=== PATIENT | male | born 1930 | race Caucasian/White ===

== ENCOUNTER 2017-02-11 10:08 | Day surgery (SDC) | payer MEDICARE, OTHER ==
[~2017-02-11 10:08] MED LIST: CHONDR SU A NA/HYALUR INTRAOC KIT (SURGICARE) ONE; EPINEPHRINE INJ/PF 1 MG/1 ML AMPULE ONE; KETOROLAC TROMETHAMINE 0.45% 4 DROP/0.4 ML DROPERETTE OS PRN; LIDOCAINE 1% INJ-PF (10 MG/ML) 30 ML SDV ONE; TOBRAMYCIN SULFATE/DEXAMETH OPH OINTMENT 3.5 GM ONE
[2017-02-11] MEDS: BESIFLOXACIN HCL 0.6% OPH SUSP 5 ML BOTTLE OS PRN ×3 (10:41→11:36)
[2017-02-11] MEDS: TROPICAMIDE 1% OPH SOLN 3 ML OS PRN ×3 (10:41→11:01)
[2017-02-11] MEDS: CYCLOPENTOLATE 0.2%/PHENYLEPHRINE 1% OPH SOLN 2 ML OS PRN ×3 (10:41→11:01)
[2017-02-11] MEDS: TETRACAINE HCL 0.5% OPH SOLN 0.6 ML DROPERETTE OS PRN ×3 (10:42→11:17)
[2017-02-11] MEDS ORDERED: MIDAZOLAM 2 MG/2 ML INJ ONE (10:58)
== END 2017-02-11 12:20 | disposition home or self-care (01) ==
LOC: SC 10:08
PROVIDERS: ATTEND Ophthalmology
PROC: 08RK3JZ Replacement of Left Lens with Synthetic Substitute, Percutaneous Approach (ICD-10-PCS; principal; 2017-02-11 11:15)
DX: H25.12 Age-related nuclear cataract, left eye (principal); D64.9 Anemia, unspecified; I10 Essential (primary) hypertension; E78.00 Pure hypercholesterolemia, unspecified; K21.9 Gastro-esophageal reflux disease without esophagitis; E89.0 Postprocedural hypothyroidism; Z79.51 Long term (current) use of inhaled steroids; Z79.899 Other long term (current) drug therapy; Z87.891 Personal history of nicotine dependence; Z86.73 Personal history of transient ischemic attack (TIA), and cerebral infarction without residual deficits; Z79.82 Long term (current) use of aspirin
CPT/HCPCS: 66984; V2630; J2250; J3490 ×3; A9270; J0171; 142

== ENCOUNTER 2017-02-25 06:35 | Day surgery (SDC) | payer MEDICARE, OTHER ==
[~2017-02-25 06:35] MED LIST changes: -CHONDR SU A NA/HYALUR INTRAOC KIT (SURGICARE) ONE; -EPINEPHRINE INJ/PF 1 MG/1 ML AMPULE ONE; +KETOROLAC TROMETHAMINE 0.45% 4 DROP/0.4 ML DROPERETTE OD PRN; -KETOROLAC TROMETHAMINE 0.45% 4 DROP/0.4 ML DROPERETTE OS PRN; -LIDOCAINE 1% INJ-PF (10 MG/ML) 30 ML SDV ONE; -TOBRAMYCIN SULFATE/DEXAMETH OPH OINTMENT 3.5 GM ONE
[2017-02-25] MEDS: TETRACAINE HCL 0.5% OPH SOLN 0.6 ML DROPERETTE OD PRN ×3 (06:58→07:49)
[2017-02-25] MEDS: BESIFLOXACIN HCL 0.6% OPH SUSP 5 ML BOTTLE OD PRN ×3 (06:59→08:09)
[2017-02-25] MEDS: CYCLOPENTOLATE 0.2%/PHENYLEPHRINE 1% OPH SOLN 2 ML OD PRN ×3 (06:59→07:25)
[2017-02-25] MEDS: TROPICAMIDE 1% OPH SOLN 3 ML OD PRN ×3 (06:59→07:25)
[2017-02-25] MEDS ORDERED: CHONDR SU A NA/HYALUR INTRAOC KIT (SURGICARE) ONE (07:12)
[2017-02-25] MEDS ORDERED: TOBRAMYCIN SULFATE/DEXAMETH OPH OINTMENT 3.5 GM ONE (07:12)
[2017-02-25] MEDS ORDERED: EPINEPHRINE INJ/PF 1 MG/1 ML AMPULE ONE (07:12)
[2017-02-25] MEDS ORDERED: LIDOCAINE 1% INJ-PF (10 MG/ML) 30 ML SDV ONE (07:12)
[2017-02-25] MEDS ORDERED: MIDAZOLAM 2 MG/2 ML INJ ONE (07:30)
== END 2017-02-25 09:03 | disposition home or self-care (01) ==
LOC: SC 06:35
PROVIDERS: ATTEND Ophthalmology
PROC: 08RJ3JZ Replacement of Right Lens with Synthetic Substitute, Percutaneous Approach (ICD-10-PCS; principal; 2017-02-25 07:45)
DX: H25.11 Age-related nuclear cataract, right eye (principal); K21.9 Gastro-esophageal reflux disease without esophagitis; I10 Essential (primary) hypertension; E78.00 Pure hypercholesterolemia, unspecified; E03.9 Hypothyroidism, unspecified; Z79.82 Long term (current) use of aspirin; Z79.899 Other long term (current) drug therapy; Z87.891 Personal history of nicotine dependence
CPT/HCPCS: 66984; V2630; J2250; J3490 ×3; A9270; J0171; 142

== ENCOUNTER 2017-10-09 12:07 | Inpatient (IN) | payer MEDICARE, OTHER ==
--- NOTE | 2017-10-09 12:14 | ER Document Report ---
ED Cardiac - General Stated Complaint: CHEST PAIN Time Seen by Provider: 10/09/17 12:13 Mode of Arrival: Medic Information source: Patient, Relative, Emergency Med Personnel TRAVEL OUTSIDE OF THE [place] IN LAST 30 DAYS: No - HPI Patient complains to provider of: Chest pain Use of: denies: Alcohol, Amphetamines, Bath salts, Caffeine, Cocaine, Decongestants Was the onset of pain: Sudden When did pain begin: 1000 HRS TODAY Is the pain a: New problem Chest pain location: Substernal Quality of pain: Pressure, Tightness Chest pain radiation location: Back Severity now: None Severity at worst: Mild Chest pain precipitating factors: At Rest Cardiac risk factors: Hypertension, Dyslipidemia. denies: Diabetes Positive cardiac history: No Associated symptoms: denies: Diaphoresis, Nausea/vomiting, Shortness of breath Exacerbated by: Denies Relieved by: NTG - PER EMS Similar symptoms previously: No Recently seen / treated by doctor: No - Related Data Allergies/Adverse Reactions: No Known Allergies Allergy (Unverified 02/04/17 12:31) Past Medical History - General Information source: Patient, Relative - Social History Smoking Status: Former Smoker Cigarette use (# per day): No Chew tobacco use (# tins/day): No Frequency of alcohol use: Occasional Drug Abuse: None Lives with: Spouse/Significant other Family History: Reviewed & Not Pertinent - Past Medical History Cardiac Medical History: Reports: Hx Hypercholesterolemia, Hx Hypertension Denies: Hx Heart Attack Pulmonary Medical History: Denies: Hx Asthma Neurological Medical History: Denies: Hx Cerebrovascular Accident, Hx Seizures Endocrine Medical History: Reports: None Renal/ Medical History: Reports: None Malignancy Medical History: Reports None GI Medical History: Reports: None. Denies: Hx Hepatitis, Hx Hiatal Hernia, Hx Ulcer Musculoskeletal Medical History: Reports None Psychiatric Medical History: Reports: None Infectious Medical History: Denies: Hx Hepatitis Surgical Hx: Negative Past Surgical History: Denies: Hx Open Heart Surgery, Hx Pacemaker Review of Systems - Review of Systems Constitutional: No symptoms reported EENT: No symptoms reported Cardiovascular: See HPI Respiratory: No symptoms reported Gastrointestinal: No symptoms reported Musculoskeletal: No symptoms reported Skin: No symptoms reported Neurological/Psychological: No symptoms reported Physical Exam - Vital signs Vitals: Pulse Ox 94 10/09/17 12:25 Interpretation: Normal. No: Hypotensive, Tachycardic, Tachypneic - General General appearance: Appears well, Alert In distress: None - HEENT Head: Normocephalic Eyes: Normal Conjunctiva: Normal Ears: Normal Nasal: Normal Mouth/Lips: Normal Mucous membranes: Normal - Respiratory Respiratory status: No respiratory distress Breath sounds: Normal - Cardiovascular Rhythm: Regular Heart sounds: Normal auscultation Murmur: No - Abdominal Inspection: Normal Distension: No distension Tenderness: Nontender Organomegaly: No: Mass - Back Back: Normal - Extremities General upper extremity: Normal inspection General lower extremity: Normal inspection - Neurological Neuro grossly intact: Yes Cognition: Normal Orientation: AAOx4 - Psychological Associated symptoms: Normal affect, Normal mood - Skin Skin Temperature: Warm Skin Moisture: Dry Skin Color: Normal Skin Turgor: Elastic Course - Vital Signs Vital signs: Temp Pulse Resp BP Pulse Ox 97.7 F 94 10/09/17 12:45 10/09/17 12:25 - Laboratory Result Diagrams: 10/09/17 12:23 10/09/17 12:23 Laboratory results interpreted by me: 10/09/17 10/09/17 12:23 12:23 RBC 3.81 L Hgb 12.1 L Hct 35.1 L Chloride 112 H Carbon Dioxide 21 L BUN 33 H Creatinine 1.51 H Est GFR ( Amer) 53 L Est GFR (Non-Af Amer) 44 L Total Protein 6.1 L - Diagnostic Test Radiology reviewed: Image reviewed, Reports reviewed - EKG Interpretation by Me EKG shows normal: Sinus rhythm, Jacob, Intervals, ST-T Waves. abnormal: QRS Complexes Rate: Normal Rhythm: NSR Jacob/QRS: RBBB, LAHB/LAFB - Consults DR. CONTRERAS Time consulted: 14:48 Consulted provider: will come to ER Discharge - Discharge Clinical Impression: Chest pain Qualifiers: Chest pain type: unspecified Qualified Code(s): R07.9 - Chest pain, unspecified Condition: Good Disposition: ADMITTED OBSERVATION Admitting Provider: Hospitalist Unit Admitted: Telemetry Referrals: TRENT FLORENTINO PA-C [Primary Care Provider] - Follow up as needed
[2017-10-09] MEDS ORDERED: ASPIRIN 81 MG TABLET, CHEWABLE PO ONE (12:22)
[2017-10-09 12:44] LABS: ABSOLUTE BASOPHILS # (AUTO) 0.1 10^3/uL (0.0-0.2); ABSOLUTE EOSINOPHILS # (AUTO) 0.2 10^3/uL (0.0-0.6); ABSOLUTE LYMPHOCYTES (AUTO) 1.5 10^3/uL (0.5-4.7); ABSOLUTE MONOCYTES (AUTO) 0.6 10^3/uL (0.1-1.4); ABSOLUTE NEUT (AUTO) 6.3 10^3/uL (1.7-8.2); BASOPHILS % (AUTO) 0.8 % (0-2); EOSINOPHILS % (AUTO) 2.3 % (0-6); HEMATOCRIT 35.1 % (37.9-51.0); HEMOGLOBIN 12.1 g/dL (13.5-17.0); LYMPHOCYTES % (AUTO) 16.9 % (13-45); MEAN CORPUSCULAR HEMOGLOBIN 31.9 pg (27.0-33.4); MEAN CORPUSCULAR HGB CONC 34.6 g/dL (32.0-36.0); MEAN CORPUSCULAR VOLUME 92 fl (80-97); MONOCYTES % (AUTO) 6.6 % (3-13); PLATELET COUNT 192 10^3/uL (150-450); RED BLOOD COUNT 3.81 10^6/uL (4.35-5.55); RED CELL DISTRIBUTION WIDTH 13.5 % (11.5-14.0); SEGMENTED NEUTROPHILS % (AUTO) 73.4 % (42-78); TOTAL CELLS COUNTED % (AUTO) 100 %; WHITE BLOOD COUNT 8.6 10^3/uL (4.0-10.5)
[2017-10-09 13:20] LABS: ALANINE AMINOTRANSFERASE 25 U/L (21-72); ALBUMIN 3.6 g/dL (3.5-5.0); ALKALINE PHOSPHATASE 50 U/L (38-126); ANION GAP 12 (5-19); ASPARTATE AMINO TRANSFERASE 22 U/L (17-59); BILIRUBIN,DIRECT 0.3 mg/dL (0.0-0.4); BILIRUBIN,TOTAL 0.5 mg/dL (0.2-1.3); BLOOD UREA NITROGEN 33 mg/dL (7-20); CALCIUM 8.9 mg/dL (8.4-10.2); CARBON DIOXIDE 21 mmol/L (22-30); CHLORIDE 112 mmol/L (98-107); CREATINE KINASE 57 U/L (55-170); GLUCOSE 110 mg/dL (75-110); POTASSIUM 4.7 mmol/L (3.6-5.0); SODIUM 144.5 mmol/L (137-145); TOTAL PROTEIN 6.1 g/dL (6.3-8.2)
[2017-10-09 13:28] LABS: CREATINE KINASE MB 1.15 ng/mL (<4.55)
[2017-10-09 13:29] LABS: TROPONIN I 0.047 ng/mL
--- NOTE | 2017-10-09 13:40 | RADIOLOGY REPORT (SQ) ---
EXAM DESCRIPTION: CHEST SINGLE VIEW COMPLETED DATE/TIME: 10/09/2017 1:13 pm REASON FOR STUDY: CHEST PAIN COMPARISON: None. EXAM PARAMETERS: NUMBER OF VIEWS: One view. TECHNIQUE: Single frontal radiographic view of the chest acquired. RADIATION DOSE: NA LIMITATIONS: None. FINDINGS: LUNGS AND PLEURA: Basilar atelectasis left greater than right. No acute opacities. MEDIASTINUM AND HILAR STRUCTURES: No masses. Contour normal. HEART AND VASCULAR STRUCTURES: Heart normal in size. Normal vasculature. BONES: No acute findings. HARDWARE: None in the chest. OTHER: No other significant finding. IMPRESSION: NO ACUTE RADIOGRAPHIC FINDING IN THE CHEST. TECHNICAL DOCUMENTATION: JOB ID: [id number] [employer]- All Rights Reserved Reading location - IP/workstation name: [email or web address]
--- NOTE | 2017-10-09 16:00 | PDOC H&P ---
History of Present Illness Admission Date/PCP: TRENT FLORENTINO PA-C History of Present Illness: LEANNE FAROOQ is a 87 year old male with no prior cardiac history who had abrupt onset of lower chest/upper abdominal pain along with pain that went through to the middle part of his back at about 930 this morning. He said it lasted for about an hour and then it stopped. He never had anything like that before. He has no prior significant cardiac history. He said he had to have a stress test a couple years ago prior to a surgery but the stress test was normal. He is not a smoker. He is not diabetic. He does take medication for blood pressure control. 1 of his children had an CA in his mid 50s. He said nothing really makes it better or worse. He said he is pain-free at this time. 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 He said he had no knowledge of any prior cardiac ischemia. Past Medical History Cardiac Medical History: Reports: Hyperlipidema, Hypertension Denies: Myocardial Infarction Pulmonary Medical History: Denies: Asthma Neurological Medical History: Denies: Seizures Endocrine Medical History: Reports: None Renal/ Medical History: Reports: None Malignancy Medical History: Reports: None GI Medical History: Reports: None Denies: Hepatitis, Hiatal Hernia Musculoskeltal Medical History: Reports: None Psychiatric Medical History: Reports: None Hematology: Reports: Anemia Denies: Sickle Cell Disease Past Surgical History Past Surgical History: Reports: Tonsillectomy Denies: Pacemaker Social History Information Source: Patient Lives with: Spouse/Significant other Smoking Status: Former Smoker Frequency of Alcohol Use: Rare Hx Recreational Drug Use: No Family History Family History: Reviewed & Not Pertinent Parental Family History Reviewed: Yes - Noncontributory Children Family History Reviewed: No - 1 of his sons had an CA in his 50s Sibling(s) Family History Reviewed.: No - Noncontributory Medication/Allergy Home Medications: Amlodipine Besylate 5 mg PO DAILY 02/04/17 Aspirin [Aspirin 81 mg Chewable Tablet] 81 mg PO DAILY 02/04/17 Atorvastatin Calcium [Lipitor 20 mg Tablet] 1 tab PO DAILY 02/04/17 B12/FA/D3/Calc Cit/Zn Aa Chelt [Rx Balance Int Capsule] 1 cap PO .WEEKLY PRN Ferrous Sulfate 325 mg PO DAILY 02/04/17 Levothyroxine Sodium [Synthroid 0.112 mg Tablet] 0.112 mg PO DAILY 02/04/17 Omeprazole 10 mg PO DAILY 02/04/17 Sodium Bicarbonate [Sodium Bicarbonate 650 mg Tablet] 1 tab PO DAILY 02/04/17 Allergies/Adverse Reactions: No Known Allergies Allergy (Unverified 02/04/17 12:31) Review of Systems All systems: reviewed and no additional remarkable complaints except as stated - 10 point review of systems was conducted with the patient was negative except as noted above Physical Exam Vital Signs: Temp Pulse Resp BP Pulse Ox 97.7 F 94 10/09/17 12:45 10/09/17 12:25 Intake & Output 10/08/17 10/09/17 10/10/17 06:59 06:59 06:59 Weight 91 kg General appearance: PRESENT: no acute distress, cooperative, well-developed Head exam: PRESENT: atraumatic, normocephalic Eye exam: PRESENT: conjunctiva pink, EOMI, PERRLA. ABSENT: scleral icterus Ear exam: PRESENT: normal external ear exam Mouth exam: PRESENT: moist, neck supple Teeth exam: PRESENT: other - Had his dentures in Throat exam: ABSENT: post pharyngeal erythema, tonsillar erythema, tonsillar exudate Neck exam: PRESENT: full ROM. ABSENT: carotid bruit, JVD, lymphadenopathy, tenderness Respiratory exam: PRESENT: clear to auscultation chace, unlabored. ABSENT: accessory muscle use, rales, rhonchi, tachypnea, wheezes Cardiovascular exam: PRESENT: RRR. ABSENT: diastolic murmur, systolic murmur Pulses: PRESENT: normal carotid pulses, normal radial pulses Vascular exam: PRESENT: normal capillary refill GI/Abdominal exam: PRESENT: normal bowel sounds, soft. ABSENT: distended, guarding, rebound, tenderness Extremities exam: ABSENT: clubbing, pedal edema Musculoskeletal exam: PRESENT: ambulatory, normal inspection. ABSENT: deformity Neurological exam: PRESENT: alert, awake, oriented to person, oriented to place , oriented to time, oriented to situation, CN II-XII grossly intact Psychiatric exam: PRESENT: appropriate affect, normal mood Skin exam: PRESENT: dry, warm Results Laboratory Results: 10/09/17 12:23 10/09/17 12:23 10/09/17 10/09/17 12:23 12:23 WBC 8.6 RBC 3.81 L Hgb 12.1 L Hct 35.1 L MCV 92 MCH 31.9 MCHC 34.6 RDW 13.5 Plt Count 192 Seg Neutrophils % 73.4 Lymphocytes % 16.9 Monocytes % 6.6 Eosinophils % 2.3 Basophils % 0.8 Absolute Neutrophils 6.3 Absolute Lymphocytes 1.5 Absolute Monocytes 0.6 Absolute Eosinophils 0.2 Absolute Basophils 0.1 Sodium 144.5 Potassium 4.7 Chloride 112 H Carbon Dioxide 21 L Anion Gap 12 BUN 33 H Creatinine 1.51 H Est GFR ( Amer) 53 L Est GFR (Non-Af Amer) 44 L Glucose 110 Calcium 8.9 Total Bilirubin 0.5 AST 22 ALT 25 Alkaline Phosphatase 50 Total Protein 6.1 L Albumin 3.6 10/09/17 10/09/17 12:23 12:23 Creatine Kinase 57 CK-MB (CK-2) 1.15 Troponin I 0.047 Impressions: Chest X-Ray 10/09/17 12:25 IMPRESSION: NO ACUTE RADIOGRAPHIC FINDING IN THE CHEST. 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 Because of the fascicular block, go ahead and schedule stress test for tomorrow. Also, he described the pain is in the upper part of his abdomen and lower chest, and that he felt that all the way through to the back. In order a CTA of the chest to try to evaluate the entire aorta. Start him on aspirin. We will continue his statin. - Time Time Spent: 50 to 70 Minutes
--- NOTE | 2017-10-09 17:37 | RADIOLOGY REPORT (SQ) ---
EXAM DESCRIPTION: CTA CHEST COMPLETED DATE/TIME: 10/09/2017 5:20 pm REASON FOR STUDY: acute lower chest/mid-back pain, COMPARISON: Chest radiograph 10/09/2017 TECHNIQUE: CT scan of the chest performed using helical scanning technique with dynamic intravenous contrast injection. Images reviewed with lung, soft tissue and bone windows. Reconstructed coronal and sagittal MPR images reviewed. Additional 3 dimensional post-processing performed to develop Maximal Intensity Projection images (AK P). All images stored on PACS. All CT scanners at this facility use dose modulation, iterative reconstruction, and/or weight based d osing when appropriate to reduce radiation dose to as low as reasonably achievable (ALARA). [facility]: Dose Right [facility]: CareDose [facility]: Dose Right [facility]: Teradose 4D [facility]: The Black Tux CONTRAST TYPE AND DOSE: contrast/concentration: Isovue 370.00 mg/ml; Total Contrast Delivered: 77.0 ml; Total Saline Delivered: 90.0 ml Contrast bolus optimized for the pulmonary arteries. Not diagnostic for the aorta. RENAL FUNCTION: BUN 33; creatinine 1.51 RADIATION DOSE: CT Rad equipment meets quality standard of care and radiation dose reduction techniq ues were employed. CTDIvol: 16.5 - 16.7 mGy. DLP: 624 mGy-cm. . LIMITATIONS: None. FINDINGS: LUNGS AND PLEURA: No masses, infiltrates, or pneumothorax. No pleural effusions or pleura l calcifications. AORTA AND GREAT VESSELS: No aneurysm. Contrast bolus not optimized for the aorta. HEART: No pericardial effusion. Moderate to marked coronary artery calcifications. PULMONARY ARTERIES: No emboli visualized in the main pulmonary arteries or the segmental branches. HILAR AND MEDIASTINAL STRUCTURES: No identified masses or abnormal nodes. Small hiatal hernia. HARDWARE: None in the chest. UPPER ABDOMEN: Limited exam. Gallstones without evidence of cholecystitis. Scattered hepatic cysts. Bilateral renal cysts. Note is made of 3 hyperdense cysts within the partially imaged right kidney ; these range in size from 1.4 cm to 1.9 cm. Ultimately, these are incompletely characterized. THYROID AND OTHER SOFT TISSUES: No masses. No adenopathy. BONES: No acute or significant finding. 3D MIPS: Confirm above findings. OTHER: No other significant finding. IMPRESSION: 1. Normal CTA of the chest. No pulmonary emboli. 2. Limited evaluation of the upper abdomen reveals 3 hyperdense cysts within the partially imaged ri ght kidney. While these likely represent Bosniak class 2 or 2F lesions, ultimately these are incompl etely characterized on this examination. Recommend further evaluation with dedicated renal CT or MRI . COMMENT: Quality ID # [id number]: Final reports with documentation of one or more dose reduction techniques (e.g., Automated exposure control, adjustment of the mA and/or kV according to patient size, use of iterative reconstruction technique) TECHNICAL DOCUMENTATION: JOB ID: [id number] [employer]- All Rights Reserved Reading location - IP/workstation name: [email or web address]
[2017-10-09] MEDS ORDERED: CLOPIDOGREL BISULFATE 300 MG TABLET PO ONE (20:00)
[2017-10-09] MEDS ORDERED: MORPHINE SULFATE 10 MG/ML INJ IV PRN (20:06)
[2017-10-09] MEDS ORDERED: NITROGLYCERIN 0.4 MG/TAB 25 TAB/BOTTLE SL PRN (20:06)
[2017-10-09] MEDS: ATORVASTATIN CALCIUM 80 MG TABLET PO SCH (22:06)
[2017-10-09] MEDS: CARVEDILOL 6.25 MG TABLET PO SCH (22:06)
[2017-10-09] MEDS: RANOLAZINE 500 MG TAB.SR.12H PO SCH (22:07)
[2017-10-09] MEDS: ENOXAPARIN SODIUM INJ 100 MG/1 ML DISP.SYRIN SUBCUT SCH (22:14)
--- NOTE | 2017-10-09 22:18 | PDOC CONSULTATION ---
Consultation Consult Date: 10/09/17 Attending physician:: GRETCHEN RICK Consult reason:: Chest pain History of Present Illness Admission Date/PCP: 10/09/17 15:44 TRENT FLORENTINO PA-C Patient complains of: Chest pain History of Present Illness: LEANNE FAROOQ is a 87 year old male with no prior cardiac history who had abrupt onset of lower chest/upper abdominal pain along with pain that went through to the middle part of his back at about 930 this morning. He said it lasted for about an hour and then it stopped. He never had anything like that before. He has no prior significant cardiac history. He said he had to have a stress test a couple years ago prior to a surgery but the stress test was normal. He is not a smoker. He is not diabetic. He does take medication for blood pressure control. 1 of his children had an NC in his mid 50s. He said nothing really makes it better or worse. He said he is pain-free at this time. 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 He said he had no knowledge of any prior cardiac ischemia. I was consulted because of troponin I in the non-STEMI range. EKG did not show any acute ST-T wave changes. Patient medical regimen reviewed and he seems to be on excellent medical regimen. At this point will order a 2D echo. Ischemia workup to be discussed after review of 2D echo. Currently patient stable without any chest pain since admission. Past Medical History Cardiac Medical History: Reports: Hyperlipidema, Hypertension Denies: Myocardial Infarction Pulmonary Medical History: Denies: Asthma Neurological Medical History: Denies: Seizures Endocrine Medical History: Reports: None Renal/ Medical History: Reports: None Malignancy Medical History: Reports: None GI Medical History: Reports: None Denies: Hepatitis, Hiatal Hernia Musculoskeltal Medical History: Reports: None, Arthritis Psychiatric Medical History: Reports: None Hematology: Reports: Anemia Denies: Sickle Cell Disease Past Surgical History Past Surgical History: Reports: Tonsillectomy Denies: Pacemaker Social History Information Source: Patient Lives with: Spouse/Significant other Smoking Status: Former Smoker Frequency of Alcohol Use: Rare Hx Recreational Drug Use: No Drugs: None - Advance Directive Resuscitation Status: Full Code Surrogate healthcare decision maker:: Magda Conway, patient's significant other Family History Family History: Hypertension Parental Family History Reviewed: Yes Children Family History Reviewed: Yes Sibling(s) Family History Reviewed.: Yes Medication/Allergy Home Medications: Amlodipine Besylate 5 mg PO DAILY 02/04/17 Aspirin [Aspirin 81 mg Chewable Tablet] 81 mg PO DAILY 02/04/17 Atorvastatin Calcium [Lipitor 20 mg Tablet] 1 tab PO DAILY 02/04/17 B12/FA/D3/Calc Cit/Zn Aa Chelt [Rx Balance Int Capsule] 1 cap PO .WEEKLY PRN Ferrous Sulfate 325 mg PO DAILY 02/04/17 Levothyroxine Sodium [Synthroid 0.112 mg Tablet] 0.112 mg PO DAILY 02/04/17 Sodium Bicarbonate [Sodium Bicarbonate 650 mg Tablet] 1 tab PO DAILY 02/04/17 Amlodipine Besylate/Valsartan [Exforge 5-160 mg Tablet] 1 tab PO DAILY 10/09/17 Diclofenac Sodium [Voltaren] 100 gm TP DAILY 10/09/17 Finasteride [Proscar 5 mg Tablet] 5 mg PO DAILY 10/09/17 Omeprazole 20 mg PO DAILY 10/09/17 Tamsulosin HCl [Flomax] 0.4 mg PO DAILY 10/09/17 Allergies/Adverse Reactions: No Known Allergies Allergy (Unverified 02/04/17 12:31) Review of Systems Review of Systems: Please see history of present illness and past medical history as wall. Constitutional: No fever or chills reported. Head : No recent chronic headaches, recent head injury. Eyes: No recent eye pain, diplopia, redness, discharge, acute visual changes. Ears: No recent chronic ear pain, acute hearing loss, ear discharge. Oral cavity: No recent ulcerations, bleeding, oral cavity discomfort. Neck: No recent acute neck pain reported. Hematologic: No recent easy bruising or bleeding. Lymphatic: No recent lymph node enlargement reported. Cardiovascular system review: See history of present illness. Respiratory system review: No hemoptysis or blood clots in the lungs reported. Mild Shortness of breath on exertion Gastrointestinal system review: Negative for any recent acute hematemesis, melena. Genitourinary system review: No recent acute or chronic hematuria, flank pain, UTI etc. reported. Skin system review: Negative for any recent abnormal bruising, no rash, no pruritus reported. Neurologic: No prior history of strokes, seizure disorder. Questionable history of prior transient ischemic attack. Psychologic: No history of major psychosis or major depression reported. Musculoskeletal: Minor aches and pains reported. No acute joint swelling reported. Endocrine: No recent polyuria, polydipsia, recent heat or cold intolerance. Physical Exam Vital Signs: Temp Pulse Resp BP Pulse Ox 97.6 F 71 16 147/62 H 100 10/09/17 18:44 10/09/17 18:44 10/09/17 18:44 10/09/17 18:44 10/09/17 18:44 Exam: GENERAL: well-nourished and in no acute distress. Alert and oriented x3 HEAD: Atraumatic, normocephalic. EYES: Pupils equal round and reactive to light, extraocular movements intact, sclera anicteric, conjunctiva are normal. ENT: TMs normal, nares patent, oropharynx clear without exudates. Moist mucous membranes. No oral ulcerations or bleeding gums noted NECK: supple without lymphadenopathy. Trachea is central. No cervical or axillary lymphadenopathy noted. Carotids are 2+, JVD WNL LUNGS: Respiration seems nonlabored, no significant accessory muscle action noted. Breath sounds clear to auscultation bilaterally and equal noted. No wheezes rales or rhonchi noted. No significant dullness noted on percussion. CHEST: Palpation of the chest wall shows no significant chest wall tenderness. HEART: [place] [employer], No PSH, 1/6 KENZIE aortic area, 1/6 callejas systolic murmur mitral area, no rubs, no gallops. ABDOMEN: Soft, no significant tenderness appreciated, normoactive bowel sounds. No guarding, no rebound. No rigidity noted . No masses appreciated. EXTREMITIES: Pedal pulses are 1-2+, no calf tenderness noted. No clubbing or cyanosis. negative pedal edema noted NEUROLOGICAL: Focused neurological exam showed no significant neurologic deficit. Normal speech, no focal weakness appreciated. PSYCH: Normal mood, normal affect. Judgment and insight within normal limits. SKIN: No significant ecchymosis, skin is noted to be warm. MUSCULOSKELETAL EXAM: No significant acute joint swelling noted. Results Laboratory Results: 10/09/17 18:31 Troponin I 0.201 Impressions: Chest/Abdomen CTA 10/09/17 00:00 IMPRESSION: 1. Normal CTA of the chest. No pulmonary emboli. 2. Limited evaluation of the upper abdomen reveals 3 hyperdense cysts within the partially imaged right kidney. While these likely represent Bosniak class 2 or 2F lesions, ultimately these are incompletely characterized on this examination. Recommend further evaluation with dedicated renal CT or MRI. Chest X-Ray 10/09/17 12:25 IMPRESSION: NO ACUTE RADIOGRAPHIC FINDING IN THE CHEST. Assessment & Plan - Diagnosis (1) Non-STEMI (non-ST elevated myocardial infarction) Is this a current diagnosis for this admission?: Yes (2) Chest pain Qualifiers: Chest pain type: unspecified Qualified Code(s): R07.9 - Chest pain, unspecified Is this a current diagnosis for this admission?: Yes (3) Hypertension Qualifiers: Hypertension type: essential hypertension Qualified Code(s): I10 - Essential (primary) hypertension Is this a current diagnosis for this admission?: Yes (4) Hyperlipidemia Qualifiers: Hyperlipidemia type: unspecified Qualified Code(s): E78.5 - Hyperlipidemia , unspecified Is this a current diagnosis for this admission?: Yes - Notes Notes: Patient being adequately managed for non-STEMI with aspirin, Plavix, statins, beta blockers and Lovenox. Will add Ranexa. Repeat EKG. Cancel stress test for tomorrow morning. Will obtain a 2D echo in the morning. Recommend blood pressure to be well controlled. Patient seems adequately treated and on adequate regimen for non-STEMI. If patient has recurrent chest pain, with associated EKG changes and are significant bump in troponin I, may consider transfer to tertiary care for urgent heart cath, once stabilized we will pursue an ischemia workup after discussion with the patient. - Time Time Spent: 30 to 50 Minutes - CODE STATUS was discussed, patient remains full code. Surrogate decision-maker unchanged. Multiple medical problems were addressed. More than 50% of the time spent coordinating care, discussing management plans with involved caregivers. Management plans discussed with involved personnels. Medical decision making was of moderate to high complexity , patient's has multiple comorbidities.
--- NOTE | 2017-10-09 22:29 | EKG REPORT ---
SEVERITY:- ABNORMAL ECG - SINUS RHYTHM RBBB AND LAFB : Confirmed by: Mikayla Justice MD 09-Oct-2017 22:28:55
[2017-10-10 00:58] LABS: APPEARANCE,URINE CLEAR; BILIRUBIN,URINE NEGATIVE (NEGATIVE); COLOR,URINE STRAW; GLUCOSE, URINE NEGATIVE (NEGATIVE); KETONES,URINE NEGATIVE (NEGATIVE); LEUKOCYTE ESTERASE,URINE NEGATIVE (NEGATIVE); NITRITE,URINE NEGATIVE (NEGATIVE); PROTEIN,URINE NEGATIVE (NEGATIVE); UROBILINOGEN,URINE NEGATIVE mg/dL (<2.0)
[2017-10-10 04:33] LABS: CHOLESTEROL 125.94 mg/dL (0-200); CREATINE KINASE 78 U/L (55-170); TRIGLYCERIDES 208 mg/dL (<150)
[2017-10-10 04:45] LABS: DIRECT LDL 51 mg/dL (<100)
[2017-10-10 04:46] LABS: CREATINE KINASE MB 1.74 ng/mL (<4.55); TROPONIN I 0.27 ng/mL
[2017-10-10 04:47] LABS: VLDL CHOLESTEROL 41.6 mg/dL (10-31)
[2017-10-10] MEDS: LANSOPRAZOLE 15 MG TAB.RAP.DR PO SCH (06:02)
[2017-10-10] MEDS: ENOXAPARIN SODIUM INJ 100 MG/1 ML DISP.SYRIN SUBCUT SCH ×2 (09:25→21:21)
[2017-10-10] MEDS: LEVOTHYROXINE SODIUM 0.112 MG TABLET PO SCH (09:27)
[2017-10-10] MEDS: ASPIRIN 81 MG TABLET, CHEWABLE PO SCH (09:27)
[2017-10-10] MEDS: ISOSORBIDE MONONITRATE 30 MG TAB.ER.24H PO SCH (09:27)
[2017-10-10] MEDS: AMLODIPINE BESYLATE 5 MG TABLET PO SCH (09:27)
[2017-10-10] MEDS: RANOLAZINE 500 MG TAB.SR.12H PO SCH ×2 (09:27→21:21)
[2017-10-10] MEDS: SODIUM BICARBONATE 650 MG TABLET PO SCH (09:28)
[2017-10-10] MEDS: FERROUS SULFATE 325 MG TABLET PO SCH (09:28)
[2017-10-10] MEDS: LISINOPRIL 5 MG TABLET PO SCH (09:28)
[2017-10-10] MEDS: CARVEDILOL 6.25 MG TABLET PO SCH ×2 (09:28→21:21)
[2017-10-10] MEDS ORDERED: ENOXAPARIN SODIUM INJ 30 MG/0.3 ML DISP.SYRIN SUBCUT SCH (10:00)
[2017-10-10] MEDS ORDERED: ATORVASTATIN CALCIUM 20 MG TABLET PO SCH (10:00)
[2017-10-10] MEDS ORDERED: OMEPRAZOLE 10 MG PO SCH (10:00)
--- NOTE | 2017-10-10 12:06 | XCELERA REPORT ---
[address] [address] Transthoracic Echocardiogram Report Name: LEANNE FAROOQ Age: 87 yrs Gender: Male : 1930 Patient Status: Inpatient Patient Location: [address] [place] [address] Study Date: 10/10/2017 11:05 AM Procedure: A complete two-dimensional transthoracic echocardiogram was performed (2D, M-mode, spectral and color flow Doppler). The study was technically adequate with some images being suboptimal in quality. Reason For Study: Non-STEMI Ordering Physician: IVY ALEXANDRE Performed By: Marina Gibson Interpretation Summary The left ventricular ejection fraction is normal. There is borderline concentric left ventricular hypertrophy. Doppler measurements suggest pseudonormalized left ventricular relaxation, which is associated with grade II/IV or mild to moderate diastolic dysfunction Wall motion cannot be accurately commented on, but no definite regional wall motion abnormalities noted. The left ventricle is grossly normal size. The right ventricular systolic function is normal. The right ventricle is grossly normal size. The right atrium is normal in size The left atrium is borderline dilated. There is no mitral valve stenosis. There is a trace amount of mitral regurgitation There is no aortic valve stenosis No aortic regurgitation is present. There is a mild amount of tricuspid regurgitation Right ventricular systolic pressure is at the upper limits of normal The aortic root is not well visualized but is probably normal size. The inferior vena cava was not well visualized There is no pericardial effusion. MMode/2D Measurements & Calculations RVDd: 2.8 cm LVIDd: 4.6 cm FS: 35.3 % Ao root diam: 3.5 cm IVSd: 0.95 cm LVIDs: 3.0 cm EDV(Teich): 96.6 ml Ao root area: 9.4 cm2 LVPWd: 1.0 cm ESV(Teich): 34.0 ml EF(Teich): 64.8 % LVOT diam: 1.4 cm LVOT area: 1.5 cm2 Doppler Measurements & Calculations MV E max steven: MV dec slope: Ao V2 max: LV V1 max P.5 cm/sec 105.0 cm/sec 3.8 mmHg MV A max steven: 191.4 cm/sec2 Ao max PG: LV V1 max: 93.0 cm/sec MV dec time: 4.4 mmHg 98.1 cm/sec MV E/A: 0.63 0.31 sec YULIYA(V,D): 1.4 cm2 PA V2 max: PI max steven: TR max steven: 91.9 cm/sec 104.5 cm/sec 221.6 cm/sec PA max PG: PI max P.4 mmHg TR max P.4 mmHg PI dec slope: 19.7 mmHg 66.4 cm/sec2 Left Ventricle The left ventricle is grossly normal size. There is borderline concentric left ventricular hypertrophy. The left ventricular ejection fraction is normal. Doppler measurements suggest pseudonormalized left ventricular relaxation, which is associated with grade II/IV or mild to moderate diastolic dysfunction. Wall motion cannot be accurately commented on, but no definite regional wall motion abnormalities noted. Right Ventricle The right ventricle is grossly normal size. There is normal right ventricular wall thickness. The right ventricular systolic function is normal. Atria The right atrium is normal in size. The left atrium is borderline dilated. Interarterial septum not well visualized and not well dopplered. Cannot comment on ASD/PFO presence. Mitral Valve The mitral valve is grossly normal. There is no mitral valve stenosis. There is a trace amount of mitral regurgitation. Aortic Valve The aortic valve is sclerotic, but shows no functional abnormality. There is no aortic valve stenosis. No aortic regurgitation is present. Tricuspid Valve The tricuspid valve is not well visualized, but is grossly normal. There is no tricuspid stenosis. There is a mild amount of tricuspid regurgitation. Right ventricular systolic pressure is at the upper limits of normal. Pulmonic Valve The pulmonic valve is not well visualized. Great Vessels The aortic root is not well visualized but is probably normal size. The inferior vena cava was not well visualized. Effusions There is no pericardial effusion. : IVY ALEXANDRE > Ivy Alexandre
--- NOTE | 2017-10-10 14:38 | PDOC PROGRESS REPORT ---
Subjective Progress Note for:: 10/10/17 Subjective:: Patient seems to be doing better. There has been no recurrence of chest pain. Cardiac enzymes are trending down. EKG noted to be nonacute. Pt is denying any chest arm or neck discomfort. Patient denying any PND, orthopnea. Patient denied any sustained palpitations, dizziness, syncope, near syncope. Patient denying any fever chills. Patient denying any other significant discomfort. Patient is maintaining sinus rhythm. Review of systems: Rest review of systems negative. Medications: Medications have been reviewed. Reason For Visit: CHEST PAIN Physical Exam Vital Signs: Temp Pulse Resp BP Pulse Ox 98.4 F 69 16 118/53 L 96 10/10/17 11:47 10/10/17 11:47 10/10/17 11:47 10/10/17 11:47 10/10/17 11:47 Intake & Output 10/09/17 10/10/17 10/11/17 06:59 06:59 06:59 Intake Total 500 Output Total 1100 Balance -600 Weight 91.2 kg Exam: GENERAL: well-nourished and in no acute distress. Alert and oriented x3 HEAD: Atraumatic, normocephalic. EYES: Pupils equal round and reactive to light, extraocular movements intact, sclera anicteric, conjunctiva are normal. ENT: TMs normal, nares patent, oropharynx clear without exudates. Moist mucous membranes. No oral ulcerations or bleeding gums noted NECK: supple without lymphadenopathy. Trachea is central. No cervical or axillary lymphadenopathy noted. Carotids are 2+, JVD WNL LUNGS: Respiration seems nonlabored, no significant accessory muscle action noted. Breath sounds clear to auscultation bilaterally and equal noted. No wheezes rales or rhonchi noted. No significant dullness noted on percussion. CHEST: Palpation of the chest wall shows no significant chest wall tenderness. HEART: [place] [employer], No PSH, 1/6 KENZIE aortic area, 1/6 [place] systolic murmur mitral area, no rubs, no gallops. ABDOMEN: Soft, no significant tenderness appreciated, normoactive bowel sounds. No guarding, no rebound. No rigidity noted . No masses appreciated. EXTREMITIES: Pedal pulses are 1-2+, no calf tenderness noted. No clubbing or cyanosis. negative pedal edema noted NEUROLOGICAL: Focused neurological exam showed no significant neurologic deficit. Normal speech, no focal weakness appreciated. PSYCH: Normal mood, normal affect. Judgment and insight within normal limits. SKIN: No significant ecchymosis, skin is noted to be warm. MUSCULOSKELETAL EXAM: No significant acute joint swelling noted. Results Laboratory Results: 10/10/17 10/10/17 00:39 04:02 Triglycerides 208 H Cholesterol 125.94 LDL Cholesterol Direct 51 VLDL Cholesterol 41.6 H HDL Cholesterol 31 L Urine Color STRAW Urine Appearance CLEAR Urine pH 7.0 Ur Specific [place] 1.020 Urine Protein NEGATIVE Urine Glucose (UA) NEGATIVE Urine Ketones NEGATIVE Urine Blood NEGATIVE Urine Nitrite NEGATIVE Ur Leukocyte Esterase NEGATIVE Urine WBC (Auto) 0 Urine RBC (Auto) 0 10/09/17 10/09/17 10/09/17 18:31 22:09 22:09 Creatine Kinase 60 CK-MB (CK-2) 1.76 Troponin I 0.201 10/10/17 10/10/17 10/10/17 04:02 04:02 10:01 Creatine Kinase 78 CK-MB (CK-2) 1.74 Troponin I 0.270 0.230 10/10/17 10/10/17 10:01 10:01 Creatine Kinase 85 CK-MB (CK-2) 1.99 Troponin I Impressions: Chest/Abdomen CTA 10/09/17 00:00 IMPRESSION: 1. Normal CTA of the chest. No pulmonary emboli. 2. Limited evaluation of the upper abdomen reveals 3 hyperdense cysts within the partially imaged right kidney. While these likely represent Bosniak class 2 or 2F lesions, ultimately these are incompletely characterized on this examination. Recommend further evaluation with dedicated renal CT or MRI. Chest X-Ray 10/09/17 12:25 IMPRESSION: NO ACUTE RADIOGRAPHIC FINDING IN THE CHEST. Assessment & Plan - Diagnosis (1) Non-STEMI (non-ST elevated myocardial infarction) Is this a current diagnosis for this admission?: Yes (2) Chest pain Qualifiers: Chest pain type: unspecified Qualified Code(s): R07.9 - Chest pain, unspecified Is this a current diagnosis for this admission?: Yes (3) Hypertension Qualifiers: Hypertension type: essential hypertension Qualified Code(s): I10 - Essential (primary) hypertension Is this a current diagnosis for this admission?: Yes (4) Hyperlipidemia Qualifiers: Hyperlipidemia type: unspecified Qualified Code(s): E78.5 - Hyperlipidemia , unspecified Is this a current diagnosis for this admission?: Yes (5) Chronic kidney disease Qualifiers: Chronic kidney disease stage: stage 3 (moderate) Qualified Code(s): N18.3 - Chronic kidney disease, stage 3 (moderate) Is this a current diagnosis for this admission?: Yes - Notes Notes: 2D echo performed which shows LVEF to be WNL therefore lower risk overall. Non-STEMI: Without any recurrence. Patient prefers evaluation with nuclear stress test. This is not an unreasonable option given patient's advanced age, history of prior strokes/TIA and some renal dysfunction which has been noted. Chest pain: Now resolved. Patient encouraged to report any recurrences. Hypertension: This is under satisfactory control. Dyslipidemia: Patient on hypotensive statin therapy. Chronic kidney disease: Noted to be stage III based on creatinine level. Patient to avoid nonsteroidal anti-inflammatory medications. - Time Time with patient: Greater than 35 minutes - Time spent discussing risk benefits of stress test and other heart catheterization. Patient scheduled for stress test. Medications reviewed and adjusted accordingly: Yes
--- NOTE | 2017-10-10 18:12 | PDOC PROGRESS REPORT ---
Subjective Progress Note for:: 10/10/17 Subjective:: No adverse events overnight. No new complaints. He has been resting comfortably unable to lay down flat. He denies any chest pain or shortness of breath. He denies any palpitations. Reason For Visit: CHEST PAIN Physical Exam Vital Signs: Temp Pulse Resp BP Pulse Ox 98.0 F 72 14 104/50 L 99 10/10/17 16:15 10/10/17 16:15 10/10/17 16:15 10/10/17 16:15 10/10/17 16:15 Intake & Output 10/09/17 10/10/17 10/11/17 06:59 06:59 06:59 Intake Total 500 Output Total 1100 Balance -600 Weight 91.2 kg General appearance: PRESENT: no acute distress, cooperative, well-developed Respiratory exam: PRESENT: clear to auscultation chace, unlabored. ABSENT: accessory muscle use, rales, rhonchi, tachypnea, wheezes Cardiovascular exam: PRESENT: RRR. ABSENT: diastolic murmur, systolic murmur Pulses: PRESENT: normal carotid pulses, normal radial pulses Vascular exam: PRESENT: normal capillary refill GI/Abdominal exam: PRESENT: normal bowel sounds, soft. ABSENT: distended, guarding, rebound, tenderness Extremities exam: ABSENT: clubbing, pedal edema Musculoskeletal exam: PRESENT: ambulatory, normal inspection. ABSENT: deformity Neurological exam: PRESENT: alert, awake, oriented to person, oriented to place , oriented to time, oriented to situation Psychiatric exam: PRESENT: appropriate affect, normal mood Skin exam: PRESENT: dry, warm Results Laboratory Results: 10/10/17 10/10/17 00:39 04:02 Triglycerides 208 H Cholesterol 125.94 LDL Cholesterol Direct 51 VLDL Cholesterol 41.6 H HDL Cholesterol 31 L Urine Color STRAW Urine Appearance CLEAR Urine pH 7.0 Ur Specific [place] 1.020 Urine Protein NEGATIVE Urine Glucose (UA) NEGATIVE Urine Ketones NEGATIVE Urine Blood NEGATIVE Urine Nitrite NEGATIVE Ur Leukocyte Esterase NEGATIVE Urine WBC (Auto) 0 Urine RBC (Auto) 0 10/09/17 10/09/17 10/09/17 18:31 22:09 22:09 Creatine Kinase 60 CK-MB (CK-2) 1.76 Troponin I 0.201 10/10/17 10/10/17 10/10/17 04:02 04:02 10:01 Creatine Kinase 78 CK-MB (CK-2) 1.74 Troponin I 0.270 0.230 10/10/17 10/10/17 10:01 10:01 Creatine Kinase 85 CK-MB (CK-2) 1.99 Troponin I Impressions: Chest/Abdomen CTA 10/09/17 00:00 IMPRESSION: 1. Normal CTA of the chest. No pulmonary emboli. 2. Limited evaluation of the upper abdomen reveals 3 hyperdense cysts within the partially imaged right kidney. While these likely represent Bosniak class 2 or 2F lesions, ultimately these are incompletely characterized on this examination. Recommend further evaluation with dedicated renal CT or MRI. Chest X-Ray 10/09/17 12:25 IMPRESSION: NO ACUTE RADIOGRAPHIC FINDING IN THE CHEST. Assessment & Plan - Diagnosis (1) Non-STEMI (non-ST elevated myocardial infarction) Is this a current diagnosis for this admission?: Yes Plan: Mild troponin elevation. Pain has resolved. He was put on ACS protocol. He had a echocardiogram which showed grade 2 diastolic dysfunction but no definite wall motion abnormal disease. Stress test is planned for tomorrow. Cardiology been consulted. - Time Time Spent with patient: 15-24 minutes
[2017-10-10] MEDS: ATORVASTATIN CALCIUM 80 MG TABLET PO SCH (21:21)
--- NOTE | 2017-10-11 03:04 | EKG REPORT ---
SEVERITY:- ABNORMAL ECG - SINUS ARRHYTHMIA, RATE 52-70 RBBB AND LAFB : Confirmed by: Mikayla Justice MD 11-Oct-2017 03:02:41
[2017-10-11] MEDS: LANSOPRAZOLE 15 MG TAB.RAP.DR PO SCH (06:55)
[2017-10-11] MEDS: ISOSORBIDE MONONITRATE 30 MG TAB.ER.24H PO SCH (09:21)
[2017-10-11] MEDS: LEVOTHYROXINE SODIUM 0.112 MG TABLET PO SCH (09:21)
[2017-10-11] MEDS: LISINOPRIL 5 MG TABLET PO SCH (09:21)
[2017-10-11] MEDS: RANOLAZINE 500 MG TAB.SR.12H PO SCH ×2 (09:21→21:43)
[2017-10-11] MEDS: SODIUM BICARBONATE 650 MG TABLET PO SCH (09:22)
[2017-10-11] MEDS: AMLODIPINE BESYLATE 5 MG TABLET PO SCH (09:22)
[2017-10-11] MEDS: CARVEDILOL 6.25 MG TABLET PO SCH ×2 (09:22→21:42)
[2017-10-11] MEDS: ASPIRIN 81 MG TABLET, CHEWABLE PO SCH (09:22)
[2017-10-11] MEDS: FERROUS SULFATE 325 MG TABLET PO SCH (09:22)
[2017-10-11] MEDS: ENOXAPARIN SODIUM INJ 100 MG/1 ML DISP.SYRIN SUBCUT SCH ×2 (09:23→21:49)
[2017-10-11 12:02] LABS: ANION GAP 13 (5-19); BLOOD UREA NITROGEN 44 mg/dL (7-20); CALCIUM 9.5 mg/dL (8.4-10.2); CARBON DIOXIDE 23 mmol/L (22-30); CHLORIDE 107 mmol/L (98-107); GLUCOSE 114 mg/dL (75-110); POTASSIUM 4.6 mmol/L (3.6-5.0); SODIUM 143.1 mmol/L (137-145)
[2017-10-11] MEDS ORDERED: REGADENOSON INJ 0.4 MG/5 ML DISP.SYRIN IV ONE (14:20)
--- NOTE | 2017-10-11 15:05 | DRAGON STRESS TEST REPORT ---
INTRAVENOUS LEXISCAN CARDIOLITE STRESS TEST USING SINGLE PHOTON EMMISION COMPUTERIZED TOMOGRAPHIC. DATE OF PROCEDURE: October 11, 2017, INDICATION : Positive troponin I elevation, non-STEMI CARDIAC RISK FACTORS: Hypertension, dyslipidemia RESTING EKG: Sinus rhythm with right bundle branch block pattern and secondary ST-T wave changes STRESS EKG: No significant ST segment changes noted with LexiScan bolus REASON FOR TERMINATION: Protocol. PROCEDURE REPORT: Baseline heart rate 64 beats per minute with blood pressure of 142/59. Patient had no significant complaints. Patient was bolused with Lexiscan 0.4 mg intravenously followed by saline bolus. Heart rate at 2 minutes post bolus 85 with a blood pressure of 124/54. 3 minutes post bolus heart rate 83 with blood pressure of 114/54. No significant EKG changes were noted. Patient had no significant complaints during the procedure or postprocedure. CONCLUSIONS: Normal EKG and hemodynamic response to IV LexiScan. NUCLEAR DATA: At rest the patient was given 14.93 millicuries of technetium 99 sestamibi injected intravenously. As per protocol rest gated SPECT images were obtained. On day of stress test, the patient was given intravenous LexiScan at a dose of 0.4 mg in 5 mL intravenously, followed by flush with normal saline. Subsequently the stress dose of 41.8 millicuries of technetium 99 sestamibi was injected intravenously. As per protocol stress gated images were obtained. NUCLEAR INTERPRETATION: Both raw and processed data were used for interpretation. Visual, qualitative, computer-generated quantitative data was used. There was good myocardial uptake of technetium compound. Motion artifact and soft tissue attenuations were noted. Increased visceral uptake was noted. Mild decreased uptake noted in the inferior wall consistent with mild ischemia, SDS of 4 therefore low risk overall. No definitive areas of fixed perfusion defect or scars noted. EKG gated imaging showed LV EF at 42 %, rest and stress gated EF similar visually. T. I D. ratio was 0.96. Lung heart ratio noted to be within normal limits 0.35. No significant extracardiac and abnormal radiotracer activities were noted. RV free wall uptake was noted to be mildly increased. IMPRESSION: Also refer to comments under nuclear interpretation. Also test results needs to be interpreted in the context of pretest probability. 1. Mild decreased uptake noted in the inferior wall consistent with mild ischemia, SDS of 4 therefore low risk overall. 2. There is no definitive scintigraphic evidence of myocardial infarction/scar. 3. EKG gated imaging shows left ventricular ejection fraction of approx. 42 %. Correlate with echocardiogram derived LVEF. 4. Clinical correlation requested as occasionally single vessel disease or balanced ischemia could be missed. In approximately 10% of the cases Lexiscan may not cause adequate vasodilatory stress. RECOMMENDATIONS: Aggressive risk factor modification and medical management. Further evaluation may be needed if continued symptoms or other high risk indicators are noted on clinical evaluation. Close cardiology follow-up is also recommended. Clinical correlation with echocardiogram derived ejection fraction. Inability to exercise by itself can lead to increased cardiovascular event risks. Consider cardiology consultation and or follow-up if clinically indicated. 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 Dr. Sacha Villegas. MRCP Board certified in cardiology and sleep medicine. Board certified in nuclear cardiology, adult echocardiography. DEJA
--- NOTE | 2017-10-11 18:08 | PDOC PROGRESS REPORT ---
Subjective Progress Note for:: 10/11/17 Subjective:: No adverse events overnight. No new complaints. No chest pain or shortness of breath. He says he has a little bit of intermittent abdominal pain that comes and goes. Reason For Visit: CHEST PAIN Physical Exam Vital Signs: Temp Pulse Resp BP Pulse Ox 98.2 F 67 16 112/55 L 97 10/11/17 15:31 10/11/17 15:31 10/11/17 15:31 10/11/17 15:31 10/11/17 15:31 Intake & Output 10/10/17 10/11/17 10/12/17 06:59 06:59 06:59 Intake Total 500 1772 237 Output Total 1100 850 Balance -600 922 237 Weight 91.2 kg 82.4 kg General appearance: PRESENT: no acute distress, cooperative, well-developed Respiratory exam: PRESENT: clear to auscultation chace, unlabored. ABSENT: accessory muscle use, rales, rhonchi, tachypnea, wheezes Cardiovascular exam: PRESENT: RRR. ABSENT: diastolic murmur, systolic murmur Pulses: PRESENT: normal carotid pulses, normal radial pulses Vascular exam: PRESENT: normal capillary refill GI/Abdominal exam: PRESENT: normal bowel sounds, soft. ABSENT: distended, guarding, rebound, tenderness Extremities exam: ABSENT: clubbing, pedal edema Musculoskeletal exam: PRESENT: ambulatory, normal inspection. ABSENT: deformity Neurological exam: PRESENT: alert, awake, oriented to person, oriented to place , oriented to time, oriented to situation Psychiatric exam: PRESENT: appropriate affect, normal mood Skin exam: PRESENT: dry, warm Results Laboratory Results: 10/11/17 11:15 10/11/17 11:15 Sodium 143.1 Potassium 4.6 Chloride 107 Carbon Dioxide 23 Anion Gap 13 BUN 44 H Creatinine 2.07 H Est GFR ( Amer) 37 L Est GFR (Non-Af Amer) 31 L Glucose 114 H Calcium 9.5 10/09/17 10/09/17 10/09/17 18:31 22:09 22:09 Creatine Kinase 60 CK-MB (CK-2) 1.76 Troponin I 0.201 10/10/17 10/10/17 10/10/17 04:02 04:02 10:01 Creatine Kinase 78 CK-MB (CK-2) 1.74 Troponin I 0.270 0.230 10/10/17 10/10/17 10:01 10:01 Creatine Kinase 85 CK-MB (CK-2) 1.99 Troponin I Impressions: Chest/Abdomen CTA 10/09/17 00:00 IMPRESSION: 1. Normal CTA of the chest. No pulmonary emboli. 2. Limited evaluation of the upper abdomen reveals 3 hyperdense cysts within the partially imaged right kidney. While these likely represent Bosniak class 2 or 2F lesions, ultimately these are incompletely characterized on this examination. Recommend further evaluation with dedicated renal CT or MRI. Chest X-Ray 10/09/17 12:25 IMPRESSION: NO ACUTE RADIOGRAPHIC FINDING IN THE CHEST. Assessment & Plan - Diagnosis (1) Non-STEMI (non-ST elevated myocardial infarction) Is this a current diagnosis for this admission?: Yes Plan: Mild troponin elevation. Pain has resolved. He was put on ACS protocol. He had a echocardiogram which showed grade 2 diastolic dysfunction but no definite wall motion abnormal disease. Stress test showed some possible ischemia with an ejection fraction that was less than what was demonstrated on the echocardiogram. Cardiology been consulted. - Time Time Spent with patient: 15-24 minutes
--- NOTE | 2017-10-11 18:22 | PDOC PROGRESS REPORT ---
Subjective Progress Note for:: 10/11/17 Subjective:: Patient seems to be doing better. There has been no recurrence of chest pain. Cardiac enzymes are trending down. EKG noted to be nonacute. Pt is denying any chest arm or neck discomfort. Patient denying any PND, orthopnea. Patient denied any sustained palpitations, dizziness, syncope, near syncope. Patient denying any fever chills. Patient denying any other significant discomfort. Patient was evaluated by a nuclear stress test. In the morning nuclear stress test risk benefits were discussed in detail. Informed consent was obtained. Patient is maintaining sinus rhythm. Review of systems: Rest review of systems negative. Medications: Medications have been reviewed. Reason For Visit: CHEST PAIN Physical Exam Vital Signs: Temp Pulse Resp BP Pulse Ox 98.2 F 67 16 112/55 L 97 10/11/17 15:31 10/11/17 15:31 10/11/17 15:31 10/11/17 15:31 10/11/17 15:31 Intake & Output 10/10/17 10/11/17 10/12/17 06:59 06:59 06:59 Intake Total 500 1772 237 Output Total 1100 850 Balance -600 922 237 Weight 91.2 kg 82.4 kg Exam: GENERAL: well-nourished and in no acute distress. Alert and oriented x3 HEAD: Atraumatic, normocephalic. EYES: Pupils equal round and reactive to light, extraocular movements intact, sclera anicteric, conjunctiva are normal. ENT: TMs normal, nares patent, oropharynx clear without exudates. Moist mucous membranes. No oral ulcerations or bleeding gums noted NECK: supple without lymphadenopathy. Trachea is central. No cervical or axillary lymphadenopathy noted. Carotids are 2+, JVD WNL LUNGS: Respiration seems nonlabored, no significant accessory muscle action noted. Breath sounds clear to auscultation bilaterally and equal noted. No wheezes rales or rhonchi noted. No significant dullness noted on percussion. CHEST: Palpation of the chest wall shows no significant chest wall tenderness. 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 ABDOMEN: Soft, no significant tenderness appreciated, normoactive bowel sounds. No guarding, no rebound. No rigidity noted . No masses appreciated. EXTREMITIES: Pedal pulses are 1-2+, no calf tenderness noted. No clubbing or cyanosis. negative pedal edema noted NEUROLOGICAL: Focused neurological exam showed no significant neurologic deficit. Normal speech, no focal weakness appreciated. PSYCH: Normal mood, normal affect. Judgment and insight within normal limits. SKIN: No significant ecchymosis, skin is noted to be warm. MUSCULOSKELETAL EXAM: No significant acute joint swelling noted. Results Laboratory Results: 10/11/17 11:15 10/11/17 11:15 Sodium 143.1 Potassium 4.6 Chloride 107 Carbon Dioxide 23 Anion Gap 13 BUN 44 H Creatinine 2.07 H Est GFR ( Amer) 37 L Est GFR (Non-Af Amer) 31 L Glucose 114 H Calcium 9.5 10/09/17 10/09/17 10/09/17 18:31 22:09 22:09 Creatine Kinase 60 CK-MB (CK-2) 1.76 Troponin I 0.201 10/10/17 10/10/17 10/10/17 04:02 04:02 10:01 Creatine Kinase 78 CK-MB (CK-2) 1.74 Troponin I 0.270 0.230 10/10/17 10/10/17 10:01 10:01 Creatine Kinase 85 CK-MB (CK-2) 1.99 Troponin I Impressions: Chest/Abdomen CTA 10/09/17 00:00 IMPRESSION: 1. Normal CTA of the chest. No pulmonary emboli. 2. Limited evaluation of the upper abdomen reveals 3 hyperdense cysts within the partially imaged right kidney. While these likely represent Bosniak class 2 or 2F lesions, ultimately these are incompletely characterized on this examination. Recommend further evaluation with dedicated renal CT or MRI. Chest X-Ray 10/09/17 12:25 IMPRESSION: NO ACUTE RADIOGRAPHIC FINDING IN THE CHEST. Assessment & Plan - Diagnosis (1) Non-STEMI (non-ST elevated myocardial infarction) Is this a current diagnosis for this admission?: Yes (2) Chest pain Qualifiers: Chest pain type: unspecified Qualified Code(s): R07.9 - Chest pain, unspecified Is this a current diagnosis for this admission?: Yes (3) Hypertension Qualifiers: Hypertension type: essential hypertension Qualified Code(s): I10 - Essential (primary) hypertension Is this a current diagnosis for this admission?: Yes (4) Hyperlipidemia Qualifiers: Hyperlipidemia type: unspecified Qualified Code(s): E78.5 - Hyperlipidemia , unspecified Is this a current diagnosis for this admission?: Yes (5) Chronic kidney disease Qualifiers: Chronic kidney disease stage: stage 3 (moderate) Qualified Code(s): N18.3 - Chronic kidney disease, stage 3 (moderate) Is this a current diagnosis for this admission?: Yes - Notes Notes: Non-STEMI: Chest pain-free without any recurrence. Patient prefers evaluation with nuclear stress test. This is not an unreasonable option given patient's advanced age, history of prior strokes/TIA and some renal dysfunction which has been noted. Patient did in fact undergo nuclear stress test without any complications. Small area of mild ischemia noted in the inferior wall. Total SDS was low therefore would recommend medical management. If patient has recurrent chest pain then heart catheterization could be considered. Patient has been encouraged to ambulate but he was noted to be very weak by nurse. Chest pain: Now resolved. Patient encouraged to report any recurrences. Hypertension: This is under satisfactory control. Blood pressure somewhat on the low side therefore have stopped Norvasc. Dyslipidemia: Patient on high potency statin therapy. Chronic kidney disease: Noted to be stage III based on creatinine level. Patient to avoid nonsteroidal anti-inflammatory medications. - Time Time with patient: Greater than 35 minutes - Nuclear stress test results were discussed with the patient in detail. Based on stress test results discussed medical management which should be adequate given his LVEF also to be normal on echocardiogram. EKG gated EF was noted to be somewhat lower but that is not uncommon especially if there is also LVH. Patient should continue on aspirin, Plavix should be continued at least a month if not long-term. Recommend beta blockers, statins, PATRICIA inhibitor/ARB. Patient noted to be quite a bit debilitated and therefore would benefit from some physical therapy and possibly cardiac rehab if felt a candidate. CODE STATUS was discussed, patient remains full code. Surrogate decision-maker patient's . Multiple medical problems were addressed. More than 50% of the time spent coordinating care, discussing management plans with involved caregivers. Management plans discussed with involved personnels. Medical decision making was of moderate to high complexity , patient's has multiple comorbidities.
[2017-10-11] MEDS: ATORVASTATIN CALCIUM 80 MG TABLET PO SCH (21:43)
[2017-10-12] MEDS: LANSOPRAZOLE 15 MG TAB.RAP.DR PO SCH (06:01)
--- NOTE | 2017-10-12 09:03 | EKG REPORT ---
SEVERITY:- ABNORMAL ECG - SINUS RHYTHM RBBB AND LAFB : Confirmed by: Ivy Villegas 12-Oct-2017 09:02:37
[2017-10-12] MEDS: ASPIRIN 81 MG TABLET, CHEWABLE PO SCH (09:23)
[2017-10-12] MEDS: CARVEDILOL 6.25 MG TABLET PO SCH (09:23)
[2017-10-12] MEDS: FERROUS SULFATE 325 MG TABLET PO SCH (09:23)
[2017-10-12] MEDS: LISINOPRIL 5 MG TABLET PO SCH (09:24)
[2017-10-12] MEDS: RANOLAZINE 500 MG TAB.SR.12H PO SCH (09:25)
[2017-10-12] MEDS: SODIUM BICARBONATE 650 MG TABLET PO SCH (09:25)
[2017-10-12] MEDS: LEVOTHYROXINE SODIUM 0.112 MG TABLET PO SCH (09:25)
[2017-10-12] MEDS: ISOSORBIDE MONONITRATE 30 MG TAB.ER.24H PO SCH (09:25)
[2017-10-12] MEDS: ENOXAPARIN SODIUM INJ 100 MG/1 ML DISP.SYRIN SUBCUT SCH (09:25)
[2017-10-12 10:39] VITALS: BP 136/57
--- NOTE | 2017-10-12 17:36 | PDOC DISCHARGE SUMMARY ---
General - Admit/Disc Date/PCP Admission Date/Primary Care Provider: 10/10/17 13:05 TRENT FLORENTINO PA-C Discharge Date: 10/12/17 - Discharge Diagnosis (1) Non-STEMI (non-ST elevated myocardial infarction) Is this a current diagnosis for this admission?: Yes Summary: Had mild troponin elevation was put on ACS protocol. He was seen by cardiology. Echocardiogram showed some diastolic dysfunction but a normal EF. Stress test showed some areas of possible reversible small vessel ischemia with an EF that was lower than the echo. Cardiology recommended medical management only at this time. He was medically optimized and discharged home to follow-up with cardiology. - Additional Information Resuscitation Status: Full Code Discharge Diet: As Tolerated, Cardiac Discharge Activity: Activity As Tolerated, Walk Frequently, Other Prescriptions: Carvedilol [Coreg 6.25 mg Tablet] 6.25 mg PO Q12 #60 tablet Nitroglycerin [Nitrostat 0.4 mg (1/150 Gr) Tabs 25/Bottle] 1 tab SL Q5MP PRN #1 bottle PRN Reason: chest pain Ranolazine [Ranexa 500 mg Tab.sr] 500 mg PO Q12 #60 tab.sr.12h Home Medications: Aspirin [Aspirin 81 mg Chewable Tablet] 81 mg PO DAILY 02/04/17 Atorvastatin Calcium [Lipitor 20 mg Tablet] 1 tab PO DAILY 02/04/17 B12/FA/D3/Calc Cit/Zn Aa Chelt [Rx Balance Int Capsule] 1 cap PO .WEEKLY PRN Ferrous Sulfate 325 mg PO DAILY 02/04/17 Levothyroxine Sodium [Synthroid 0.112 mg Tablet] 0.112 mg PO DAILY 02/04/17 Sodium Bicarbonate [Sodium Bicarbonate 650 mg Tablet] 1 tab PO DAILY 02/04/17 Amlodipine Besylate/Valsartan [Exforge 5-160 mg Tablet] 1 tab PO DAILY 10/09/17 Diclofenac Sodium [Voltaren] 100 gm TP DAILY 10/09/17 Finasteride [Proscar 5 mg Tablet] 5 mg PO DAILY 10/09/17 Omeprazole 20 mg PO DAILY 10/09/17 Tamsulosin HCl [Flomax] 0.4 mg PO DAILY 10/09/17 Carvedilol [Coreg 6.25 mg Tablet] 6.25 mg PO Q12 #60 tablet 10/12/17 Nitroglycerin [Nitrostat 0.4 mg (1/150 Gr) Tabs 25/Bottle] 1 tab SL Q5MP PRN #1 bottle 10/12/17 Ranolazine [Ranexa 500 mg Tab.sr] 500 mg PO Q12 #60 tab.sr.12h 10/12/17 History of Present Illness History of Present Illness: LEANNE FAROOQ is a 87 year old male with no prior cardiac history who had abrupt onset of lower chest/upper abdominal pain along with pain that went through to the middle part of his back at about 930 this morning. He said it lasted for about an hour and then it stopped. He never had anything like that before. He has no prior significant cardiac history. He said he had to have a stress test a couple years ago prior to a surgery but the stress test was normal. He is not a smoker. He is not diabetic. He does take medication for blood pressure control. 1 of his children had an CA in his mid 50s. He said nothing really makes it better or worse. He said he is pain-free at this time. 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 He said he had no knowledge of any prior cardiac ischemia. Hospital Course Hospital Course: He began to have some slight troponin elevations but he never had any substantial elevations. He was put on ACS protocol. After the workup that was mentioned above, the decision was made for him to go home with medical management and outpatient cardiology follow-up. As previously noted, he was medically optimized. His requested that he have some physical therapy set up for him at home. He apparently gets around with a walker at home, but he does not like to use it and his is worried he is going to fall. These arrangements were set up as well. His labs and examination were reassuring and he was discharged home in good condition. Physical Exam Vital Signs: Temp Pulse Resp BP Pulse Ox 98.7 F 60 22 H 136/57 H 97 10/12/17 10:35 10/12/17 10:35 10/12/17 10:35 10/12/17 10:35 10/12/17 10:35 Intake & Output 10/11/17 10/12/17 10/13/17 06:59 06:59 06:59 Intake Total 1772 537 Output Total 850 450 Balance 922 87 Weight 82.4 kg 82.7 kg General appearance: PRESENT: no acute distress, cooperative, well-developed Respiratory exam: PRESENT: clear to auscultation chace, unlabored. ABSENT: accessory muscle use, rales, rhonchi, tachypnea, wheezes Cardiovascular exam: PRESENT: RRR. ABSENT: diastolic murmur, systolic murmur Pulses: PRESENT: normal carotid pulses, normal radial pulses Vascular exam: PRESENT: normal capillary refill GI/Abdominal exam: PRESENT: normal bowel sounds, soft. ABSENT: distended, guarding, rebound, tenderness Extremities exam: ABSENT: clubbing, pedal edema Musculoskeletal exam: PRESENT: ambulatory, normal inspection. ABSENT: deformity Neurological exam: PRESENT: alert, awake, oriented to person, oriented to place , oriented to time, oriented to situation Psychiatric exam: PRESENT: appropriate affect, normal mood Skin exam: PRESENT: dry, warm Results Laboratory Results: 10/11/17 11:15 Impressions: Chest/Abdomen CTA 10/09/17 00:00 IMPRESSION: 1. Normal CTA of the chest. No pulmonary emboli. 2. Limited evaluation of the upper abdomen reveals 3 hyperdense cysts within the partially imaged right kidney. While these likely represent Bosniak class 2 or 2F lesions, ultimately these are incompletely characterized on this examination. Recommend further evaluation with dedicated renal CT or MRI. Chest X-Ray 10/09/17 12:25 IMPRESSION: NO ACUTE RADIOGRAPHIC FINDING IN THE CHEST. Qualifiers - * PATIENT BEING DISCHARGED WITH ANY OF THE FOLLOWING DIAGNOSIS: CA CA Pt being discharged on Aspirin therapy?: Yes CA Pt being discharged on Statins?: Yes CA Pt discharged ACEI/ARBS?: Yes
== END 2017-10-12 12:00 | disposition home health service (06) | DRG 282 ==
LOC: ER 12:07 → INTOOBSV 15:44 → EH 15:44 → OBSVTOIN 15:44 → 5 18:42 → OBSVTOIN 10-10 13:05
PROVIDERS: ADMIT Internal Medicine; ATTEND Internal Medicine
DX: I21.4 Non-ST elevation (NSTEMI) myocardial infarction (principal); E78.5 Hyperlipidemia, unspecified; M19.90 Unspecified osteoarthritis, unspecified site; I12.9 Hypertensive chronic kidney disease with stage 1 through stage 4 chronic kidney disease, or unspecified chronic kidney disease; N18.3 Chronic kidney disease, stage 3 (moderate); Z79.899 Other long term (current) drug therapy; Z82.49 Family history of ischemic heart disease and other diseases of the circulatory system
CPT/HCPCS: 36415; 71045; 71275; 78452; 80048; 80053; 80061; 81001; 82550; 82553; 83036; 84484; 85025; 93005; 93010; 93017; 93306; 99285; A9500; G0378; J1650; J2785; J3490

== ENCOUNTER → 2018-02-18 | Outpatient (CLI) | payer MEDICARE, OTHER ==
[2018-02-18 14:55] LABS: HEMATOCRIT 37.9 % (37.9-51.0); HEMOGLOBIN 13.2 g/dL (13.5-17.0); MEAN CORPUSCULAR HEMOGLOBIN 32.4 pg (27.0-33.4); MEAN CORPUSCULAR HGB CONC 34.7 g/dL (32.0-36.0); MEAN CORPUSCULAR VOLUME 93 fl (80-97); PLATELET COUNT 182 10^3/uL (150-450); RED BLOOD COUNT 4.07 10^6/uL (4.35-5.55); RED CELL DISTRIBUTION WIDTH 13.7 % (11.5-14.0); WHITE BLOOD COUNT 6.9 10^3/uL (4.0-10.5)
[2018-02-18 15:02] LABS: APPEARANCE,URINE CLEAR; BILIRUBIN,URINE NEGATIVE (NEGATIVE); COLOR,URINE YELLOW; GLUCOSE, URINE NEGATIVE (NEGATIVE); KETONES,URINE NEGATIVE (NEGATIVE); LEUKOCYTE ESTERASE,URINE NEGATIVE (NEGATIVE); NITRITE,URINE NEGATIVE (NEGATIVE); PROTEIN,URINE NEGATIVE (NEGATIVE); URINE SPECIFIC GRAVITY 1.019; UROBILINOGEN,URINE NEGATIVE mg/dL (<2.0)
[2018-02-18 15:14] LABS: ANION GAP 10 (5-19); BLOOD UREA NITROGEN 30 mg/dL (7-20); CALCIUM 9.4 mg/dL (8.4-10.2); CARBON DIOXIDE 27 mmol/L (22-30); CHLORIDE 111 mmol/L (98-107); GLUCOSE 100 mg/dL (75-110); PHOSPHORUS 3.4 mg/dL (2.5-4.5); POTASSIUM 4.8 mmol/L (3.6-5.0); SODIUM 148.2 mmol/L (137-145)
== END ==
LOC: OD 14:15
PROVIDERS: ATTEND Physician Assistant Medical
DX: I12.9 Hypertensive chronic kidney disease with stage 1 through stage 4 chronic kidney disease, or unspecified chronic kidney disease (principal); N18.3 Chronic kidney disease, stage 3 (moderate); R80.9 Proteinuria, unspecified; D64.9 Anemia, unspecified
CPT/HCPCS: 36415; 80048; 81001; 83970; 84100; 85027

== ENCOUNTER 2018-05-22 11:00 | Emergency (ER) | payer MEDICARE, OTHER ==
[2018-05-22] MEDS ORDERED: ASPIRIN 81 MG TABLET, CHEWABLE PO ONE (11:47)
--- NOTE | 2018-05-22 11:47 | ER Document Report ---
ED Medical Screen (RME) - General Chief Complaint: Abdominal Pain Stated Complaint: ABDOMINAL PAIN Time Seen by Provider: 05/22/18 11:46 Primary Care Provider: GAMALIEL GILLESPIE PA-C [Primary Care Provider] - Follow up as needed Mode of Arrival: Wheelchair Information source: Patient, Relative, [facility] Records Notes: 87-year-old male with hypertension, hyperlipidemia, coronary artery disease presents with complaint of 2 days of generalized abdominal pain and one day of right-sided chest pain. I have greeted and performed a rapid initial assessment of this patient. A comprehensive ED assessment and evaluation of the patient, analysis of test results and completion of medical decision making process we will be contacted by additional ED providers. PHYSICAL EXAMINATION: Vital signs reviewed GENERAL: Well-appearing, well-nourished and in no acute distress. LUNGS: No respiratory distress Musculoskeletal: Normal range of motion NEUROLOGICAL: Normal speech, normal gait. PSYCH: Normal mood, normal affect. SKIN: Warm, Dry, normal turgor, no rashes or lesions noted. TRAVEL OUTSIDE OF THE [place] IN LAST 30 DAYS: No - HPI Onset: Yesterday Onset/Duration: Gradual Quality of pain: Achy Severity: Mild Associated Symptoms: Abdominal pain, Chest pain, Other - Back pain Exacerbated by: Denies Relieved by: Denies Similar symptoms previously: No Recently seen / treated by doctor: No - Related Data Smoking: Non-smoker Frequency of alcohol use: None Drug Abuse: None Allergies/Adverse Reactions: No Known Allergies Allergy (Unverified 02/04/17 12:31) Past Medical History - Social History Chew tobacco use (# tins/day): No Frequency of alcohol use: None Drug Abuse: None - Past Medical History Cardiac Medical History: Reports: Hx Hypercholesterolemia, Hx Hypertension Denies: Hx Heart Attack Pulmonary Medical History: Denies: Hx Asthma Neurological Medical History: Denies: Hx Cerebrovascular Accident, Hx Seizures Renal/ Medical History: Denies: Hx Peritoneal Dialysis GI Medical History: Denies: Hx Hepatitis, Hx Hiatal Hernia, Hx Ulcer Musculoskeltal Medical History: Reports Hx Arthritis Infectious Medical History: Denies: Hx Hepatitis Past Surgical History: Reports: Hx Tonsillectomy. Denies: Hx Open Heart Surgery, Hx Pacemaker - Immunizations History of Influenza Vaccine for 12/2016 - 05/2017 Season: Unknown Physical Exam - Vital signs Vitals: Temp Pulse Resp BP Pulse Ox 97.7 F 69 16 110/52 L 98 05/22/18 11:06 05/22/18 11:06 05/22/18 11:06 05/22/18 11:06 05/22/18 11:06 Course - Vital Signs Vital signs: Temp Pulse Resp BP Pulse Ox 97.7 F 69 16 110/52 L 98 05/22/18 11:06 05/22/18 11:06 05/22/18 11:06 05/22/18 11:06 05/22/18 11:06 Doctor's Discharge - Discharge Referrals: GAMALIEL GILLESPIE PA-C [Primary Care Provider] - Follow up as needed
--- NOTE | 2018-05-22 13:09 | RADIOLOGY REPORT (SQ) ---
EXAM DESCRIPTION: CHEST 2 VIEWS COMPLETED DATE/TIME: 05/22/2018 12:13 pm REASON FOR STUDY: Chest pain COMPARISON: Chest x-ray 10/09/2017. EXAM PARAMETERS: NUMBER OF VIEWS: two views TECHNIQUE: Digital Frontal and Lateral radiographic views of the chest acquired. RADIATION DOSE: NA LIMITATIONS: none FINDINGS: LUNGS AND PLEURA: No consolidation, pneumothorax or pleural effusion. MEDIASTINUM AND HILAR STRUCTURES: No masses or contour abnormalities. HEART AND VASCULAR STRUCTURES: Heart normal size. No evidence for failure. BONES: No acute findings. HARDWARE: None in the chest. IMPRESSION: No acute radiographic finding in the chest. TECHNICAL DOCUMENTATION: JOB ID: [id number] [employer]- All Rights Reserved Reading location - IP/workstation name: [email or web address]
[2018-05-22 13:19] LABS: ABSOLUTE EOSINOPHILS # (AUTO) 0.2 10^3/uL (0.0-0.6); ABSOLUTE LYMPHOCYTES (AUTO) 1.3 10^3/uL (0.5-4.7); ABSOLUTE MONOCYTES (AUTO) 0.8 10^3/uL (0.1-1.4); BASOPHILS % (AUTO) 0.4 % (0-2); EOSINOPHILS % (AUTO) 2.1 % (0-6); HEMOGLOBIN 12.6 g/dL (13.5-17.0); LYMPHOCYTES % (AUTO) 14.2 % (13-45); MEAN CORPUSCULAR HEMOGLOBIN 31.7 pg (27.0-33.4); MEAN CORPUSCULAR HGB CONC 33.9 g/dL (32.0-36.0); MEAN CORPUSCULAR VOLUME 93 fl (80-97); MONOCYTES % (AUTO) 8.9 % (3-13); PLATELET COUNT 166 10^3/uL (150-450); RED BLOOD COUNT 3.96 10^6/uL (4.35-5.55); SEGMENTED NEUTROPHILS % (AUTO) 74.4 % (42-78); TOTAL CELLS COUNTED % (AUTO) 100 %; WHITE BLOOD COUNT 9.4 10^3/uL (4.0-10.5)
[2018-05-22 13:23] LABS: INTERNATIONAL RATION (INR) 0.99; PROTHROMBIN TIME 13.6 SEC (11.4-15.4)
[2018-05-22 13:24] LABS: PARTIAL THROMBOPLASTIN TIME 33.9 SEC (23.5-35.8)
[2018-05-22 13:42] LABS: ALANINE AMINOTRANSFERASE 44 U/L (21-72); ALBUMIN 3.9 g/dL (3.5-5.0); ALKALINE PHOSPHATASE 58 U/L (38-126); ANION GAP 9 (5-19); ASPARTATE AMINO TRANSFERASE 144 U/L (17-59); BILIRUBIN,DIRECT 0.1 mg/dL (0.0-0.4); BILIRUBIN,TOTAL 0.6 mg/dL (0.2-1.3); BLOOD UREA NITROGEN 28 mg/dL (7-20); CALCIUM 9.8 mg/dL (8.4-10.2); CARBON DIOXIDE 27 mmol/L (22-30); CHLORIDE 105 mmol/L (98-107); CREATINE KINASE 523 U/L (55-170); GLUCOSE 108 mg/dL (75-110); LIPASE 90.9 U/L (23-300); POTASSIUM 4.4 mmol/L (3.6-5.0); SODIUM 140.7 mmol/L (137-145); TOTAL PROTEIN 6.4 g/dL (6.3-8.2)
[2018-05-22 13:54] LABS: CREATINE KINASE MB 44.7 ng/mL (<4.55)
[2018-05-22 13:56] LABS: TROPONIN I 18.8 ng/mL
[2018-05-22] MEDS ORDERED: HEPARIN SODIUM,PORCINE/D5W 25,000 UNIT/250 ML RTUINJ IV PRN (14:24)
[2018-05-22] MEDS ORDERED: HEPARIN SOD (PORCINE) 1,000 UNIT/ML 10 ML VIAL IV ONE (14:24)
--- NOTE | 2018-05-22 15:02 | RADIOLOGY REPORT (SQ) ---
EXAM DESCRIPTION: CT ABD/PELVIS NO ORAL OR IV COMPLETED DATE/TIME: 05/22/2018 2:21 pm REASON FOR STUDY: abdominal pain COMPARISON: None. TECHNIQUE: CT scan of the abdomen and pelvis performed without intravenous or oral contrast. Images reviewed with lung, soft tissue, and bone windows. Reconstructed coronal and sagittal MPR images revi ewed. All images stored on PACS. All CT scanners at this facility use dose modulation, iterative reconstruction, and/or weight based d osing when appropriate to reduce radiation dose to as low as reasonably achievable (ALARA). [facility]: Dose Right [facility]: CareDose [facility]: Dose Right [facility]: Teradose 4D [facility]: Smart Biomonitor RADIATION DOSE: CT Rad equipment meets quality standard of care and radiation dose reduction techniq ues were employed. CTDIvol: 10.1 mGy. DLP: 595 mGy-cm.mGy. LIMITATIONS: None. FINDINGS: LOWER CHEST: Chronic subpleural interstitial changes consistent with interstitial fibrosis . Bullous disease right lower lobe. Atherosclerotic coronary artery calcification. NON-CONTRASTED LIVER, SPLEEN, ADRENALS: LIVER: Multiple rounded areas of decreased attenuation right and left lobes of the liver consistent with hepatic cyst. Hepatic granuloma. SPLEEN: No abnormali ty. ADRENALS: No abnormality. PANCREAS: No abnormality. GALLBLADDER: Cholelithiasis. . RIGHT KIDNEY AND URETER: There are multi well-circumscribed hyperdense masses in the upper pole of th e left kidney most likely hyperdense cysts. There is a prominent parapelvic cysts of the mid right k idney. LEFT KIDNEY AND URETER: There is a well-circumscribed hyperdense mass medial cortex upper pole left k idney most likely hyperdense cysts. There is a prominent simple cortical cyst lateral cortex upper p ole left kidney. Small parapelvic cyst upper pole left kidney. AORTA AND RETROPERITONEUM: There is atherosclerotic change of the abdominal aorta. Atherosclerotic c hange at origin renal arteries. Atherosclerotic change of the iliac and femoral arteries. . No retr operitoneal masses or adenopathy. BOWEL AND PERITONEAL CAVITY: There is a hiatal hernia. APPENDIX: Absent. PELVIS, BLADDER, AND ABDOMINAL WALL:Prostate: Prostatomegaly. Urinary bladder: No abnormality. Div erticulum from posterior left side of urinary bladder. BONES: Multilevel lumbar spondylosis. Multilevel degenerative disc disease. 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 IMPRESSION: 1. Chronic interstitial fibrosis. Atherosclerotic coronary artery disease. 2. Multip le simple hepatic cysts. 3. Evidence of hyperdense masses within both kidneys most consistent with hyperdense cysts. Large parapelvic cyst right kidney. Cortical cyst upper pole left kidney. Small parapelvic cyst left kidney. 3. Cholelithiasis. Hiatal hernia. 4. Mild prostatomegaly. COMMENT: Quality ID # [id number]: Final reports with documentation of one or more dose reduction techniques (e.g., Automated exposure control, adjustment of the mA and/or kV according to patient size, use of iterative reconstruction technique) TECHNICAL DOCUMENTATION: JOB ID: [id number] 2010 [employer]- All Rights Reserved Reading location - IP/workstation name: [email or web address]
--- NOTE | 2018-05-22 16:08 | ER Document Report ---
ED Cardiac - General Chief Complaint: Abdominal Pain Stated Complaint: ABDOMINAL PAIN Time Seen by Provider: 05/22/18 11:46 Primary Care Provider: GAMALIEL GILLESPIE PA-C [ALLIED HEALTH PROFESSIONAL] - Follow up as needed Mode of Arrival: Wheelchair TRAVEL OUTSIDE OF THE [place] IN LAST 30 DAYS: No - HPI Patient complains to provider of: Chest pain Was the onset of pain: Gradual Is the pain a: New problem Chest pain location: Substernal Quality of pain: Constant, Mild, Dull Chest pain radiation location: None Severity now: Moderate Severity at worst: Moderate Pain level currently: 3 Cardiac risk factors: Hypertension, Dyslipidemia Positive cardiac history: Yes Associated symptoms: Abdominal pain Exacerbated by: Deep breaths Relieved by: Nothing Similar symptoms previously: No Recently seen / treated by doctor: No - Related Data Allergies/Adverse Reactions: No Known Allergies Allergy (Unverified 02/04/17 12:31) Past Medical History - General Information source: Patient, Relative, [facility] Records - Social History Smoking Status: Never Smoker Chew tobacco use (# tins/day): No Frequency of alcohol use: None Drug Abuse: None Family History: Hypertension Patient has suicidal ideation: No Patient has homicidal ideation: No - Past Medical History Cardiac Medical History: Reports: Hx Hypercholesterolemia, Hx Hypertension Denies: Hx Heart Attack Pulmonary Medical History: Denies: Hx Asthma Neurological Medical History: Denies: Hx Cerebrovascular Accident, Hx Seizures Renal/ Medical History: Denies: Hx Peritoneal Dialysis GI Medical History: Denies: Hx Hepatitis, Hx Hiatal Hernia, Hx Ulcer Musculoskeletal Medical History: Reports Hx Arthritis Infectious Medical History: Denies: Hx Hepatitis Past Surgical History: Reports: Hx Tonsillectomy. Denies: Hx Open Heart Surgery, Hx Pacemaker Review of Systems - Review of Systems Constitutional: No symptoms reported EENT: No symptoms reported Cardiovascular: Chest pain Respiratory: No symptoms reported Gastrointestinal: Abdominal pain Genitourinary: No symptoms reported Male Genitourinary: No symptoms reported Musculoskeletal: No symptoms reported Skin: No symptoms reported Hematologic/Lymphatic: No symptoms reported Neurological/Psychological: No symptoms reported -: Yes All other systems reviewed and negative Physical Exam - Vital signs Vitals: Temp Pulse Resp BP Pulse Ox 97.7 F 69 16 110/52 L 98 05/22/18 11:06 05/22/18 11:06 05/22/18 11:06 05/22/18 11:06 05/22/18 11:06 Interpretation: Normal - General General appearance: Appears well, Alert - HEENT Head: Normocephalic, Atraumatic Eyes: Normal Pupils: PERRL - Respiratory Respiratory status: No respiratory distress Chest status: Nontender Breath sounds: Normal Chest palpation: Normal - Cardiovascular Rhythm: Regular Heart sounds: Normal auscultation Murmur: No - Abdominal Inspection: Normal Distension: No distension Bowel sounds: Normal Tenderness: Tender - Diffused.. 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 - Back Back: Normal, Nontender - Extremities General upper extremity: Normal inspection, Nontender, Normal color, Normal ROM, Normal temperature General lower extremity: Normal inspection, Nontender, Normal color, Normal ROM, Normal temperature, Normal weight bearing. No: Emy's sign - Neurological Neuro grossly intact: Yes Cognition: Normal Orientation: AAOx4 Cristal Coma Scale Eye Opening: Spontaneous Cristal Coma Scale Verbal: Oriented Cristal Coma Scale Motor: Obeys Commands [place] Coma Scale Total: 15 Speech: Normal Motor strength normal: LUE, RUE, LLE, RLE Sensory: Normal - Psychological Associated symptoms: Normal affect, Normal mood - Skin Skin Temperature: Warm Skin Moisture: Dry Skin Color: Normal Course - Vital Signs Vital signs: Temp Pulse Resp BP Pulse Ox 97.7 F 69 24 H 118/66 94 05/22/18 11:06 05/22/18 11:06 05/22/18 16:01 05/22/18 16:01 05/22/18 16:01 - Laboratory Result Diagrams: 05/22/18 13:00 05/22/18 13:00 Laboratory results interpreted by me: 05/22/18 05/22/18 05/22/18 13:00 13:00 13:00 RBC 3.96 L Hgb 12.6 L Hct 37.0 L BUN 28 H Creatinine 1.73 H Est GFR ( Amer) 45 L Est GFR (Non-Af Amer) 38 L AST 144 H Creatine Kinase 523 H CK-MB (CK-2) 44.70 H NT-Pro-B Natriuret Pep 43246 H - Diagnostic Test Radiology reviewed: Reports reviewed - EKG Interpretation by Me EKG shows normal: Sinus rhythm Rate: Normal - 59 Rhythm: NSR Calvin/QRS: RBBB When compared to previous EKG there are: No significant change - No STEMI. The [employer] youth probation officer Dr Mikayla Worrell was consulted and he recieved the EKG and agreed with the interpretation. He wants the patient transferred to another [facility] for higher level of care. Discharge - Discharge Clinical Impression: Non-STEMI (non-ST elevated myocardial infarction) Chest pain Qualifiers: Chest pain type: chest pain due to myocardial ischemia Ischemic chest pain type: other angina pectoris type Qualified Code(s): I20.8 - Other forms of angina pectoris Abdominal pain Qualifiers: Abdominal location: generalized Qualified Code(s): R10.84 - Generalized abdominal pain Condition: Serious Disposition: [facility] Referrals: GAMALIEL GILLESPIE PA-C [ALLIED HEALTH PROFESSIONAL] - Follow up as needed
--- NOTE | 2018-05-22 18:23 | RADIOLOGY REPORT (SQ) ---
EXAM DESCRIPTION: CT HEAD WITHOUT COMPLETED DATE/TIME: 05/22/2018 5:51 pm REASON FOR STUDY: difference in speech COMPARISON: MRI brain 04/23/2007. TECHNIQUE: Axial images acquired through the brain without intravenous contrast. Images reviewed wi th bone, brain and subdural windows. Images stored on PACS. All CT scanners at this facility use dose modulation, iterative reconstruction, and/or weight based d osing when appropriate to reduce radiation dose to as low as reasonably achievable (ALARA). [facility]: Dose Right [facility]: CareDose [facility]: Dose Right [facility]: Teradose 4D [facility]: Smart Moodyo RADIATION DOSE: CT Rad equipment meets quality standard of care and radiation dose reduction techniq ues were employed. CTDIvol: 53.2 mGy. DLP: 1124 mGy-cm.mGy. LIMITATIONS: None. FINDINGS: VENTRICLES: Prominent. CEREBRUM: No mass effect. No hemorrhage. No midline shift. Areas of low density in the white matte r most likely due to chronic micro-vascular ischemic change. No evidence for acute territorial infar ction. CEREBELLUM: No hemorrhage. No alteration of density. No evidence for acute infarction. EXTRAAXIAL SPACES: Age-related involutional change. No fluid collections. ORBITS AND GLOBE: Symmetrical contour of the globes. CALVARIUM: No depressed fracture. PARANASAL SINUSES: No air-fluid level. SOFT TISSUES: No hematoma. IMPRESSION: No acute intracranial hemorrhage or acute territorial infarct. 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 EVIDENCE OF ACUTE STROKE: NO. TECHNICAL DOCUMENTATION: JOB ID: [id number] [facility] Quality ID # [id number]: Final reports with documentation of one or more dose reduction techniques (e.g., Au tomated exposure control, adjustment of the mA and/or kV according to patient size, use of iterative reconstruction technique) 2010 [employer]- All Rights Reserved Reading location - IP/workstation name: [email or web address]
[2018-05-22 18:27] LABS: APPEARANCE,URINE CLEAR; BILIRUBIN,URINE NEGATIVE (NEGATIVE); COLOR,URINE YELLOW; GLUCOSE, URINE NEGATIVE (NEGATIVE); KETONES,URINE NEGATIVE (NEGATIVE); LEUKOCYTE ESTERASE,URINE NEGATIVE (NEGATIVE); NITRITE,URINE NEGATIVE (NEGATIVE); PROTEIN,URINE NEGATIVE (NEGATIVE); URINE SPECIFIC GRAVITY 1.019; UROBILINOGEN,URINE NEGATIVE mg/dL (<2.0)
[2018-05-22 19:29] VITALS: BP 121/65
--- NOTE | 2018-05-22 22:16 | EKG REPORT ---
SEVERITY:- ABNORMAL ECG - SINUS RHYTHM ATRIAL PREMATURE COMPLEX RIGHT BUNDLE BRANCH BLOCK ST DEPRESSION LEADS V1 TO V4 C/W ANTERIOR ISCHEMIA. : Confirmed by: Mikayla Justice MD 22-May-2018 22:15:37
--- NOTE | 2018-05-24 13:33 | EKG REPORT ---
SEVERITY:- ABNORMAL ECG - SINUS RHYTHM ATRIAL PREMATURE COMPLEX RIGHT BUNDLE BRANCH BLOCK + LAFB. : Confirmed by: Channing Kuhn MD 24-May-2018 13:33:01
== END 2018-05-22 18:55 | disposition short-term general hospital (02) ==
LOC: ER 11:00
DX: I21.4 Non-ST elevation (NSTEMI) myocardial infarction (principal); I25.119 Atherosclerotic heart disease of native coronary artery with unspecified angina pectoris; I10 Essential (primary) hypertension; I45.10 Unspecified right bundle-branch block; R10.84 Generalized abdominal pain
CPT/HCPCS: 93005; 99285; 96374; 36415; 82553; 82550; 83690; 85025; 85610; 85730; 80053; 81001; 84484; 83880; 71046; 70450; 74176; 93010; J1644 ×2; A9270

== ENCOUNTER 2018-08-08 11:49 | Emergency (ER) | payer MEDICARE, OTHER ==
--- NOTE | 2018-08-08 12:40 | ER Document Report ---
ED Medical Screen (RME) - General Chief Complaint: Fall Injury Stated Complaint: FALL/RIGHT LEG PAIN Time Seen by Provider: 08/08/18 12:30 Primary Care Provider: CASEY DOUGLAS MD [Primary Care Provider] - Follow up as needed TRAVEL OUTSIDE OF THE [place] IN LAST 30 DAYS: No - HPI Notes: 08/08/18 12:37 Patient is an 87-year-old male with a history of coronary disease status post stent placement in May and on Plavix, hypertension, ambulatory dysfunction secondary to generalized weakness since hospital stay who presents complaining of right arm pain near his elbow status post fall in the kitchen prior to arrival. Patient states that he lost his balance and fell on his arm. He did not hit his head or lose conscious. Patient states he has absolutely no other tenderness anywhere. Denies any headache, fever, head injury, neck pain, changes in vision/speech/mentation/hearing, URI, sore throat, chest pain, palpitations, syncope, cough, shortness of breath, wheeze, dyspnea, abdominal pain, nausea/vomiting/diarrhea, urinary retention, dysuria, hematuria, loss of control of bowel or bladder, numbness/tingling, saddle anesthesia, muscle paralysis/weakness, or rash. Denies MERIDA, fever, neck pain, URI, CP, SOB, Abd pain, or rash. I have treated and performed a rapid initial assessment of this patient. A comprehensive ED assessment and evaluation of the patient, analysis of test results and completion of medical decision making process will be conducted by additional ED providers. PHYSICAL EXAMINATION: GENERAL: Well-appearing, well-nourished and in no acute distress. A&Ox4. Answers questions appropriately. Head: atraumatic Neck: FROM. No midline tenderness. Rt arm: FROM and strength 5+/5. + swelling, ecchymosis, and tenderness proximal dorsal forearm near the elbow. N/V intact distal otherwise. No other bony tenderness to the extremities otherwise. Pelvis stable. - Related Data Allergies/Adverse Reactions: No Known Allergies Allergy (Verified 08/08/18 11:50) Past Medical History - Social History Chew tobacco use (# tins/day): No Frequency of alcohol use: None Drug Abuse: None - Past Medical History Cardiac Medical History: Reports: Hx Heart Attack, Hx Hypercholesterolemia, Hx Hypertension Pulmonary Medical History: Denies: Hx Asthma Neurological Medical History: Denies: Hx Cerebrovascular Accident, Hx Seizures Renal/ Medical History: Denies: Hx Peritoneal Dialysis GI Medical History: Denies: Hx Hepatitis, Hx Hiatal Hernia, Hx Ulcer Musculoskeltal Medical History: Reports Hx Arthritis Infectious Medical History: Denies: Hx Hepatitis Past Surgical History: Reports: Hx Cardiac Surgery - stent x 5, Hx Tonsillectomy. Denies: Hx Open Heart Surgery, Hx Pacemaker - Immunizations History of Influenza Vaccine for 12/2016 - 05/2017 Season: Unknown Physical Exam - Vital signs Vitals: Temp Pulse Resp BP Pulse Ox 99.1 F 88 16 146/65 H 97 08/08/18 11:52 08/08/18 11:52 08/08/18 11:52 08/08/18 11:52 08/08/18 11:52 Course - Vital Signs Vital signs: Temp Pulse Resp BP Pulse Ox 99.1 F 88 16 146/65 H 97 08/08/18 11:52 08/08/18 11:52 08/08/18 11:52 08/08/18 11:52 08/08/18 11:52 Doctor's Discharge - Discharge Referrals: CASEY DOUGLAS MD [Primary Care Provider] - Follow up as needed
--- NOTE | 2018-08-08 14:05 | RADIOLOGY REPORT (SQ) ---
EXAM DESCRIPTION: ELBOW RIGHT OVER 2 VIEWS COMPLETED DATE/TIME: 08/08/2018 1:40 pm REASON FOR STUDY: rt prox forearm pain,swelling, ecchymosis s/p fall COMPARISON: None. NUMBER OF VIEWS: Four views. TECHNIQUE: AP, lateral, and both oblique radiographic images acquired of the right elbow. LIMITATIONS: None. FINDINGS: MINERALIZATION: Normal. BONES: No acute fracture or dislocation. No worrisome bone lesions. JOINT: No effusion. SOFT TISSUES: Soft tissue swelling about the lateral forearm. OTHER: No other significant finding. IMPRESSION: No fracture or dislocation of the right elbow. No elbow joint effusion. Soft tissue sw elling about the lateral forearm. TECHNICAL DOCUMENTATION: JOB ID: [id number] [employer]- All Rights Reserved Reading location - IP/workstation name: [email or web address]
--- NOTE | 2018-08-08 17:02 | RADIOLOGY REPORT (SQ) ---
EXAM DESCRIPTION: HIP RIGHT AP/LATERAL COMPLETED DATE/TIME: 08/08/2018 4:51 pm REASON FOR STUDY: Fell on right hip. COMPARISON: None. NUMBER OF VIEWS: Two views. TECHNIQUE: AP pelvis and additional frog-leg view of the right hip. LIMITATIONS: None. FINDINGS: MINERALIZATION: Normal. RIGHT HIP: No fracture or dislocation. No worrisome bone lesions. LEFT HIP: No fracture or dislocation. No worrisome bone lesions. PUBIS AND ISCHIUM: No fracture. PELVIS: No fracture. SACRUM: No fracture or dislocation. No worrisome bone lesions. LOWER LUMBAR SPINE: No fracture or dislocation. No worrisome bone lesions. No significant disc disea se. SOFT TISSUES: No findings. OTHER: Extensive vascular calcinosis. IMPRESSION: No fracture or dislocation of the right hip. Please note that plain radiographs are ins ensitive for hip or pelvic fracture. Recommend MRI to further evaluate if fracture is suspected. TECHNICAL DOCUMENTATION: JOB ID: [id number] [employer]- All Rights Reserved Reading location - IP/workstation name: [email or web address]
--- NOTE | 2018-08-08 17:31 | ER Document Report ---
ED Fall - General Chief Complaint: Fall Injury Stated Complaint: FALL/RIGHT LEG PAIN Time Seen by Provider: 08/08/18 12:30 Primary Care Provider: CASEY DOUGLAS MD [NO LOCAL MD] - Follow up as needed Notes: Patient fell this morning and hurt his right elbow and right upper lateral thigh. He is able to stand and walk at this time. He has full range of motion of his elbow. Does have a large swollen area there. Patient has weakness all the time because of chronic debility. He spent 45 days in the hospital at [facility] and ultimately ended up with surgery placing 5 coronary stents. He has been weak ever since that lengthy hospital stay. Patient denies any loss of consciousness. Denies any head pain or head injury. Denies any neck pain. Denies chest pain. Denies shortness of breath. Denies any fevers. TRAVEL OUTSIDE OF THE [place] IN LAST 30 DAYS: No - Related data Allergies/Adverse Reactions: No Known Allergies Allergy (Verified 08/08/18 11:50) Past Medical History - Social History Smoking Status: Unknown if Ever Smoked Chew tobacco use (# tins/day): No Frequency of alcohol use: None Drug Abuse: None Family History: Reviewed & Not Pertinent, Hypertension Patient has suicidal ideation: No Patient has homicidal ideation: No - Past Medical History Cardiac Medical History: Reports: Hx Heart Attack, Hx Hypercholesterolemia, Hx Hypertension Neurological Medical History: Denies: Hx Cerebrovascular Accident, Hx Seizures Musculoskeletal Medical History: Reports Hx Arthritis Past Surgical History: Reports: Hx Cardiac Surgery - stent x 5, Hx Tonsillectomy Review of Systems - Review of Systems Notes: CONSTITUTIONAL : Denies fever. CARDIOVASCULAR: Denies chest pain. RESPIRATORY: Denies cough, chest congestion, or shortness of breath. GASTROINTESTINAL: Denies abdominal pain or nausea, vomiting, or diarrhea. GENITOURINARY: Denies difficulty or painful urinating, urinary frequency, blood in urine. Musculoskeletal: Patient only complains of pain over a large hematoma on the dorsal aspect of the proximal right forearm and along the lateral aspect of the right proximal thigh. Physical Exam - Vital signs Vitals: Temp Pulse Resp BP Pulse Ox 99.1 F 88 16 146/65 H 97 08/08/18 11:52 08/08/18 11:52 08/08/18 11:52 08/08/18 11:52 08/08/18 11:52 Interpretation: Normal Notes: PHYSICAL EXAMINATION: GENERAL: Well-appearing, no acute distress. HEAD: Atraumatic, normocephalic. NECK: Normal range of motion, supple. LUNGS: Breath sounds clear and equal bilaterally. HEART: Regular rate and rhythm without murmurs heard. ABDOMEN: Soft, nontender. No guarding or rebound or masses felt. Musculoskeletal: Patient has a fairly large soft hematoma of the dorsal right proximal forearm, not actually involving the elbow joint. He has full range of motion of the arm and elbow and that location. The swollen area is significant but not tense and not very painful. Course - Vital Signs Vital signs: Temp Pulse Resp BP Pulse Ox 98.3 F 91 16 126/62 H 98 08/08/18 17:35 08/08/18 17:35 08/08/18 17:35 08/08/18 17:35 08/08/18 17:35 - Diagnostic Test Radiology results interpreted by me: 08/08/18 19:44 X-ray of the right elbow and of the right hip are both negative for fracture or dislocation. Discharge - Discharge Clinical Impression: Fall, Contusion of right arm, Contusion of right hip Condition: Stable Disposition: HOME, SELF-CARE Additional Instructions: MUSCLE STRAIN: You have strained a muscle -- torn the fibers within the muscle. This often occurs with strenuous exertion, or during an injury that suddenly stretches the muscle. The seriousness of a strain varies. Some strains heal within days, others cause problems for months. X-rays cannot show a muscle strain. X-rays are taken only if symptoms suggest that a fracture could be present. The usual treatment of a muscle strain is rest and ice packs. Sometimes, a sling, splint, or crutches may be necessary to rest the muscle. The muscle can be used again once pain subsides. Severe strains require a special exercise and stretching program to prevent permanent stiffness and disability. Your doctor will advise you if this will be necessary. Call the doctor immediately if pain or swelling becomes severe, or if numbness or discoloration develop. CONTUSION of right arm and right hip: Your injury has resulted in a contusion -- a crushing of the deep tissues. No injury to important structures was detected during the physician's exam. Contusions vary in the amount of pain they cause, and in the length of time required for healing. Typically, the area will become bruised, and will remain painful to touch for two or three weeks. However, most patients are back to working and playing within a few days. After the initial period of rest and cold-packs, your symptoms (together with the doctor's recommendations) will determine how rapidly you can get back to full activity. Usually this means "do what feels okay, but don't do things that hurt." If re-examination was recommended, it's important to follow up as instructed. Call the doctor or return any time if pain increases, if swelling becomes severe, if you develop numbness or weakness in an injured extremity, or if any other alarming symptoms occur. USE OF TYLENOL (ACETAMINOPHEN): Acetaminophen may be taken for pain relief or fever control. It's much safer than aspirin, offering a wider range of "safe" dosages. It is safe during . Some brand names are Tylenol, Panadol, Datril, Anacin 3, Tempra, and Liquiprin. Acetaminophen can be repeated every four hours. The following are maximum recommended dosages: WEIGHT Dose Drops Elixir Chewable(80mg) (LBS.) drprs=droppers tsp=teaspoon 89 pounds or adults 650 mg to 900 mg Acetaminophen can be repeated every four hours. Maximum dose not to exceed 4000 mg a day. These maximum recommended dosages are slightly higher than the dosages written on the product container, but these dosages are very safe and below the toxic dosage for acetaminophen. MUSCLE RELAXERS: Muscle relaxing medications are usually prescribed for acute muscle spasm or injury to the neck and back. They are often combined with antiinflammatory pain medication for increased relief. You may stop the muscle relaxer when the pain and stiffness have improved. Start the medication again if spasms recur. Muscle relaxers may cause drowsiness, especially with the first dose. Do not operate machinery or drive while under the effects of the medication. Most muscle relaxers last up to 24 hours. Do not combine the medication with alcohol. 08/09/2018, error: no muscle relaxers prescribed. FOLLOW-UP CARE: If you have been referred to a physician for follow-up care, call the physicians office for an appointment as you were instructed or within the next two days. If you experience worsening or a significant change in your symptoms, notify the physician immediately or return to the Emergency Department at any time for re-evaluation. X-ray of your right arm and your right hip are negative for fractures or dislocations. Referrals: CASEY DOUGLAS MD [NO LOCAL MD] - Follow up as needed
[2018-08-08 17:36] VITALS: BP 126/62
== END 2018-08-08 17:46 | disposition home or self-care (01) ==
LOC: ER 11:49
DX: S50.11XA Contusion of right forearm, initial encounter (principal); S70.01XA Contusion of right hip, initial encounter; W19.XXXA Unspecified fall, initial encounter; E78.00 Pure hypercholesterolemia, unspecified; I10 Essential (primary) hypertension; I25.2 Old myocardial infarction
CPT/HCPCS: 99283

== ENCOUNTER → 2018-08-12 | Outpatient (CLI) | payer MEDICARE, OTHER ==
[2018-08-12 11:20] LABS: HEMATOCRIT 27.7 % (37.9-51.0); MEAN CORPUSCULAR HEMOGLOBIN 29.5 pg (27.0-33.4); MEAN CORPUSCULAR HGB CONC 32.6 g/dL (32.0-36.0); MEAN CORPUSCULAR VOLUME 90 fl (80-97); PLATELET COUNT 176 10^3/uL (150-450); RED BLOOD COUNT 3.06 10^6/uL (4.35-5.55); RED CELL DISTRIBUTION WIDTH 15.9 % (11.5-14.0); WHITE BLOOD COUNT 6.5 10^3/uL (4.0-10.5)
[2018-08-12 11:46] LABS: ANION GAP 10 (5-19); BLOOD UREA NITROGEN 27 mg/dL (7-20); CALCIUM 9.2 mg/dL (8.4-10.2); CARBON DIOXIDE 21 mmol/L (22-30); CHLORIDE 112 mmol/L (98-107); GLUCOSE 137 mg/dL (75-110); PHOSPHORUS 3.9 mg/dL (2.5-4.5); POTASSIUM 4.4 mmol/L (3.6-5.0); SODIUM 143.2 mmol/L (137-145)
[2018-08-13 13:52] LABS: APPEARANCE,URINE CLEAR; BILIRUBIN,URINE NEGATIVE (NEGATIVE); COLOR,URINE YELLOW; GLUCOSE, URINE NEGATIVE (NEGATIVE); KETONES,URINE NEGATIVE (NEGATIVE); LEUKOCYTE ESTERASE,URINE NEGATIVE (NEGATIVE); NITRITE,URINE NEGATIVE (NEGATIVE); PROTEIN,URINE NEGATIVE (NEGATIVE); URINE SPECIFIC GRAVITY 1.017; UROBILINOGEN,URINE NEGATIVE mg/dL (<2.0)
== END ==
LOC: OD 10:51
PROVIDERS: ATTEND Physician Assistant Medical
DX: I12.9 Hypertensive chronic kidney disease with stage 1 through stage 4 chronic kidney disease, or unspecified chronic kidney disease (principal); N18.3 Chronic kidney disease, stage 3 (moderate); R80.9 Proteinuria, unspecified
CPT/HCPCS: 36415; 80048; 81001; 83970; 84100; 85027

== ENCOUNTER 2018-10-31 09:42 | Inpatient (IN) | payer MEDICARE, OTHER ==
[2018-10-31] MEDS ORDERED: NORMAL SALINE 500 ML IV ONE (10:22)
[2018-10-31 10:51] LABS: ALBUMIN 3.4 g/dL (3.5-5.0); ALKALINE PHOSPHATASE 53 U/L (38-126); ANION GAP 8 (5-19); ASPARTATE AMINO TRANSFERASE 15 U/L (17-59); BILIRUBIN,DIRECT 0.3 mg/dL (0.0-0.4); BILIRUBIN,TOTAL 0.6 mg/dL (0.2-1.3); BLOOD UREA NITROGEN 36 mg/dL (7-20); CARBON DIOXIDE 21 mmol/L (22-30); CHLORIDE 112 mmol/L (98-107); GLUCOSE 138 mg/dL (75-110); POTASSIUM 4.1 mmol/L (3.6-5.0); TOTAL PROTEIN 6.1 g/dL (6.3-8.2)
[2018-10-31 10:52] LABS: HEMOGLOBIN 10.9 g/dL (13.5-17.0); MEAN CORPUSCULAR HEMOGLOBIN 29.2 pg (27.0-33.4); MEAN CORPUSCULAR HGB CONC 33.1 g/dL (32.0-36.0); MEAN CORPUSCULAR VOLUME 88 fl (80-97); PLATELET COUNT 144 10^3/uL (150-450); RED BLOOD COUNT 3.75 10^6/uL (4.35-5.55); RED CELL DISTRIBUTION WIDTH 15.8 % (11.5-14.0); WHITE BLOOD COUNT 17.9 10^3/uL (4.0-10.5)
--- NOTE | 2018-10-31 10:54 | ER Document Report ---
Entered by LUIS ACEVEDO SCRIBE 10/31/18 1054 Acting as scribe for:JESSE KEY MD ED General - General Chief Complaint: Fall Stated Complaint: WEAKNESS Time Seen by Provider: 10/31/18 10:15 Notes: Patient is a 88-year-old male with history of dementia arriving via EMS presenting to the emergency department after a fall. at bedside states that the patient fell this morning, and yelled for her, she could not get him up until EMS arrived. states that the patient has not had a bowel movement in a week. Patient has a history of heart attack, his last heart attack was in [place], by he had 5 stents put in Plavix outside of [facility]. Patient denies experiencing any fever, or being recently ill. TRAVEL OUTSIDE OF THE [place] IN LAST 30 DAYS: No - Related Data Allergies/Adverse Reactions: No Known Allergies Allergy (Verified 08/08/18 11:50) Past Medical History - General Information source: Patient - Social History Smoking Status: Former Smoker Cigarette use (# per day): No Chew tobacco use (# tins/day): No Frequency of alcohol use: None Drug Abuse: None Family History: Reviewed & Not Pertinent, Hypertension Patient has suicidal ideation: No Patient has homicidal ideation: No - Past Medical History Cardiac Medical History: Reports: Hx Heart Attack, Hx Hypercholesterolemia, Hx Hypertension Musculoskeletal Medical History: Reports Hx Arthritis Past Surgical History: Reports: Hx Cardiac Surgery - stent x 5, Hx Tonsillectomy Review of Systems - Review of Systems Constitutional: No symptoms reported. denies: Fever EENT: No symptoms reported Cardiovascular: No symptoms reported Respiratory: No symptoms reported Gastrointestinal: No symptoms reported Genitourinary: No symptoms reported Male Genitourinary: No symptoms reported Musculoskeletal: No symptoms reported Skin: No symptoms reported Hematologic/Lymphatic: No symptoms reported Neurological/Psychological: No symptoms reported -: Yes All other systems reviewed and negative Physical Exam - Vital signs Vitals: Resp Pulse Ox 28 H 94 10/31/18 09:46 10/31/18 09:46 - Notes Notes: Physical Exam: General: Alert, appears well, confused. HEENT: Dry tongue. Normocephalic. Atraumatic. PERRL. Extraocular movements intact. Oropharynx clear. Neck: Supple. Non-tender. Respiratory: No respiratory distress. Clear and equal breath sounds bilaterally. Cardiovascular: Regular rate and rhythm. Abdominal: Normal Inspection. Non-tender. No distension. Normal Bowel Sounds. Back: Non-tender. No deformity or step off. Extremities: Moves all four extremities. Upper extremities: Normal inspection. Normal ROM. Lower extremities: Normal inspection. No edema. Normal ROM. Neurological: Confused more than usual. Alert to person. Normal cognition. AAOx3. Normal speech. Psychological: Normal affect. Normal Mood. Skin: Warm. Dry. Normal color. Course - Re-evaluation Re-evalutation: 10/31/18 13:30 Discussed case with nurse practitioner Lili. Patient has been having cough white cell count of 18,000 we will treat for community-acquired pneumonia. Cultures drawn ceftriaxone and doxycycline provided emergency department. - Vital Signs Vital signs: Temp Pulse Resp BP Pulse Ox 28 H 133/52 H 94 10/31/18 09:48 10/31/18 09:48 10/31/18 09:48 - Laboratory Result Diagrams: 10/31/18 10:23 10/31/18 10:23 Laboratory results interpreted by me: 10/31/18 10/31/18 10/31/18 10:23 10:23 10:23 WBC 17.9 H RBC 3.75 L Hgb 10.9 L Hct 33.0 L RDW 15.8 H Plt Count 144 L Seg Neuts % (Manual) 88 H Lymphocytes % (Manual) 5 L Abs Neuts (Manual) 15.8 H Chloride 112 H Carbon Dioxide 21 L BUN 36 H Creatinine 1.73 H Est GFR ( Amer) 45 L Est GFR (Non-Af Amer) 37 L Glucose 138 H AST 15 L Total Protein 6.1 L Albumin 3.4 L TSH 0.03 L Urine Blood 10/31/18 11:52 WBC RBC Hgb Hct RDW Plt Count Seg Neuts % (Manual) Lymphocytes % (Manual) Abs Neuts (Manual) Chloride Carbon Dioxide BUN Creatinine Est GFR ( Amer) Est GFR (Non-Af Amer) Glucose AST Total Protein Albumin TSH Urine Blood SMALL H Discharge - Discharge Clinical Impression: Dehydration CAP (community acquired pneumonia) Qualifiers: Laterality: right Lung location: unspecified part of lung Qualified Code(s): J18.9 - Pneumonia, unspecified organism Condition: Good Disposition: ADMITTED INPATIENT Admitting Provider: Lonnie (Hospitalist) Unit Admitted: Medical Floor I personally performed the services described in the documentation, reviewed and edited the documentation which was dictated to the scribe in my presence, and it accurately records my words and actions.
[2018-10-31 11:10] LABS: ABSOLUTE LYMPHOCYTES# (MANUAL) 0.9 10^3/uL (0.5-4.7); ABSOLUTE MONOCYTES # (MANUAL) 1.1 10^3/uL (0.1-1.4); BASOPHILS % (MANUAL) 1 % (0-2); EOSINOPHILS % (MANUAL) 0 % (0-6); LYMPHOCYTES % (MANUAL) 5 % (13-45); MONOCYTES % (MANUAL) 6 % (3-13); SEGMENTED NEUTROPHILS % (MAN) 88 % (42-78); TOTAL CELLS COUNTED 100
[2018-10-31 11:11] LABS: ANISOCYTOSIS SLIGHT; PLATELET COMMENT DECREASED; TOXIC GRANULATION 2+
--- NOTE | 2018-10-31 11:24 | RADIOLOGY REPORT (SQ) ---
EXAM DESCRIPTION: CT HEAD WITHOUT COMPLETED DATE/TIME: 10/31/2018 11:15 am REASON FOR STUDY: fall, on plavix COMPARISON: 05/22/2018 TECHNIQUE: Axial images acquired through the brain without intravenous contrast. Images reviewed wi th bone, brain and subdural windows. Additional sagittal and coronal reconstructions were generated. Images stored on PACS. All CT scanners at this facility use dose modulation, iterative reconstruction, and/or weight based d osing when appropriate to reduce radiation dose to as low as reasonably achievable (ALARA). [facility]: Dose Right [facility]: CareDose [facility]: Dose Right [facility]: Teradose 4D [facility]: Smart localbacon RADIATION DOSE: CT Rad equipment meets quality standard of care and radiation dose reduction techniq ues were employed. CTDIvol: 53.2 mGy. DLP: 1044 mGy-cm. mGy. LIMITATIONS: None. FINDINGS: VENTRICLES: Prominent. CEREBRUM: No masses. No hemorrhage. No midline shift. Areas of low density in the white matter mos t likely due to chronic micro-vascular ischemic change. No evidence for acute infarction. Old left lacunar infarct. CEREBELLUM: No masses. No hemorrhage. No alteration of density. No evidence for acute infarction. EXTRAAXIAL SPACES: Mild age-related involutional change. No fluid collections. No masses. ORBITS AND GLOBE: No intra- or extraconal masses. Normal contour of globe without masses. CALVARIUM: No fracture. PARANASAL SINUSES: No fluid or mucosal thickening. SOFT TISSUES: No mass or hematoma. OTHER: No other significant finding. IMPRESSION: MILD CHRONIC CHANGES OF ATROPHY AND MICROVASCULAR ISCHEMIA. NO ACUTE PROCESS. EVIDENCE OF ACUTE STROKE: NO. TECHNICAL DOCUMENTATION: JOB ID: [id number] Quality ID # [id number]: Final reports with documentation of one or more dose reduction techniques (e.g., Au tomated exposure control, adjustment of the mA and/or kV according to patient size, use of iterative reconstruction technique) 2010 [employer]- All Rights Reserved Reading location - IP/workstation name: [email or web address]
--- NOTE | 2018-10-31 11:32 | EKG REPORT ---
SEVERITY:- ABNORMAL ECG - SINUS RHYTHM INCOMPLETE RIGHT BUNDLE BRANCH BLOCK INFERIOR INFARCT, AGE INDETERMINATE : Confirmed by: Ivy Villegas 31-Oct-2018 11:32:06
[2018-10-31 12:03] LABS: APPEARANCE,URINE CLEAR; BILIRUBIN,URINE NEGATIVE (NEGATIVE); COLOR,URINE YELLOW; GLUCOSE, URINE NEGATIVE (NEGATIVE); KETONES,URINE NEGATIVE (NEGATIVE); LEUKOCYTE ESTERASE,URINE NEGATIVE (NEGATIVE); NITRITE,URINE NEGATIVE (NEGATIVE); PROTEIN,URINE NEGATIVE (NEGATIVE); URINE SPECIFIC GRAVITY 1.016; UROBILINOGEN,URINE NEGATIVE mg/dL (<2.0)
[2018-10-31 12:18] LABS: URINE AMPHETAMINES SCREEN NEGATIVE; URINE BARBITURATES SCREEN NEGATIVE; URINE BENZODIAZEPINES SCREEN NEGATIVE; URINE COCAINE SCREEN NEGATIVE; URINE MARIJUANA (THC) SCREEN NEGATIVE; URINE METHADONE SCREEN NEGATIVE; URINE PHENCYCLIDINE SCREEN NEGATIVE
[2018-10-31] MEDS ORDERED: DOXYCYCLINE HYCLATE INJ 100 MG VIAL IV ONE (13:29)
[2018-10-31] MEDS ORDERED: CEFTRIAXONE 1 GM/D5W RTU 1 GM/50 ML RTUPB IV ONE (13:29)
--- NOTE | 2018-10-31 13:48 | RADIOLOGY REPORT (SQ) ---
EXAM DESCRIPTION: CHEST SINGLE VIEW COMPLETED DATE/TIME: 10/31/2018 1:36 pm REASON FOR STUDY: weak COMPARISON: 05/22/2018 TECHNIQUE: Single frontal radiographic view of the chest acquired. NUMBER OF VIEWS: One view. LIMITATIONS: None. FINDINGS: LUNGS AND PLEURA: No pneumothorax. No consolidation or pleural effusion. Similar chronic interstitial changes. MEDIASTINUM AND HILAR STRUCTURES: Stable. HEART AND VASCULAR STRUCTURES: Stable. BONES: No acute findings. HARDWARE: None in the chest. OTHER: No other significant finding. IMPRESSION: NO ACUTE FINDINGS. TECHNICAL DOCUMENTATION: JOB ID: [id number] [place]-72 2010 [employer]- All Rights Reserved Reading location - IP/workstation name: [email or web address]
[2018-10-31] MEDS ORDERED: GUAIFENESIN SYRP 200 MG/10 ML UDC PO PRN (14:51)
[2018-10-31] MEDS ORDERED: ALBUTEROL SULFATE 0.083% NEB 2.5 MG/3 ML AMPUL NEB PRN (14:51)
[2018-10-31] MEDS ORDERED: ACETAMINOPHEN 325 MG TABLET PO PRN (14:51)
[2018-10-31] MEDS ORDERED: BISACODYL 10 MG SUPP.RECT PR PRN (14:54)
[2018-10-31] MEDS ORDERED: MAGNESIUM HYDROXIDE SUSP 30 ML UDCUP PO ONE (15:30)
[2018-10-31] MEDS ORDERED: BISACODYL 10 MG SUPP.RECT PR ONE (15:30)
[2018-10-31] MEDS: NORMAL SALINE 1000 ML 1,000 ML IV PRN (15:44)
[2018-10-31] MEDS: IPRATROPIUM/ALBUTEROL 0.5-2.5 MG/3 ML AMPUL NEB SCH ×2 (15:58→23:48)
[2018-10-31] MEDS: DOCUSATE SODIUM 100 MG/10 ML UDC PO SCH (17:33)
--- NOTE | 2018-10-31 18:58 | PDOC H&P ---
History of Present Illness Admission Date/PCP: 10/31/18 14:13 Patient complains of: fall, generalized weakness History of Present Illness: LEANNE FAROOQ is a 88 year old male with a past medical history of recent RI (5 stents), HTN, HLD, COPD, remote CVA, Hypothyroidism, BPH, GERD, and dementia who presented to the ED via EMS for a fall and generalized weakness. Patient's reports that patient has had increased weakness for the previous several days; he is at his baseline mental status (orientated to person, place, situation, but easily confused and forgetful). Patient's only complaint is severe constipation. Evaluation in the emergency department revealed tachypnea, Leukocytosis (WBC 17.9 with 88% neutrophils), baseline anemia, baseline creatinine (1.73), normal urine, UDS, and chest x-ray. EKG demonstrates sinus rhythm with an incomplete RBBB. Troponin is negative. The patient is referred to the hospitalist service for admission and management of the above. Past Medical History Cardiac Medical History: Reports: Coronary Artery Disease, Myocardial Infarction, Hyperlipidema, Hypertension Pulmonary Medical History: Reports: Chronic Obstructive Pulmonary Disease (COPD) EENT Medical History: Reports: None Neurological Medical History: Reports: Ischemic CVA Denies: Seizures Endocrine Medical History: Reports: Hypothyroidism Denies: Diabetes Mellitus Type 2 Renal/ Medical History: Reports: Chronic Kidney Disease Malignancy Medical History: Reports: None GI Medical History: Reports: Gastroesophageal Reflux Disease Denies: Hepatitis, Hiatal Hernia Musculoskeltal Medical History: Reports: Arthritis Psychiatric Medical History: Reports: Dementia Denies: Depression Hematology: Reports: Anemia Denies: Sickle Cell Disease Past Surgical History Past Surgical History: Reports: Cardiac Catheterization, Coronary Stent, Tonsillectomy Denies: Pacemaker Social History Information Source: Patient Lives with: Spouse/Significant other Smoking Status: Former Smoker Frequency of Alcohol Use: None Hx Recreational Drug Use: No Drugs: None Hx Prescription Drug Abuse: No - Advance Directive Resuscitation Status: Full Code Surrogate healthcare decision maker:: The patient's , Tatiana Flores, Family History Family History: Reviewed & Not Pertinent, Hypertension Parental Family History Reviewed: Yes Children Family History Reviewed: Yes Sibling(s) Family History Reviewed.: Yes Medication/Allergy Home Medications: Atorvastatin Calcium [Lipitor 20 mg Tablet] 1 tab PO DAILY 02/04/17 Finasteride [Proscar 5 mg Tablet] 5 mg PO DAILY 10/09/17 Tamsulosin HCl [Flomax] 0.4 mg PO DAILY 10/09/17 Carvedilol [Coreg 6.25 mg Tablet] 6.25 mg PO Q12 #60 tablet 10/12/17 Ranolazine [Ranexa 500 mg Tab.sr] 500 mg PO Q12 #60 tab.sr.12h 10/12/17 Docusate Sodium [Colace 100 mg Capsule] 100 mg PO BID PRN 05/22/18 Aspirin [Ecotrin 81 mg EC Tablet] 81 mg PO DAILY 10/31/18 Clopidogrel Bisulfate [Plavix 75 mg Tablet] 75 mg PO DAILY 10/31/18 Lansoprazole 15 mg PO DAILY 10/31/18 Lidocaine/Tetracaine [Lidocaine-Tetracaine 7%-7% Crm] 0.5 gm TP QID 10/31/18 Lisinopril [Zestril] 2.5 mg PO DAILY 10/31/18 Spironolactone [Aldactone 25 mg Tablet] 12.5 mg PO DAILY 10/31/18 Allergies/Adverse Reactions: No Known Allergies Allergy (Verified 08/08/18 11:50) Review of Systems Constitutional: PRESENT: weakness. ABSENT: chills, fever(s), headache(s), weight gain, weight loss Eyes: ABSENT: visual disturbances Ears: ABSENT: hearing changes Cardiovascular: ABSENT: chest pain, dyspnea on exertion, edema, orthropnea, palpitations Respiratory: PRESENT: cough. ABSENT: hemoptysis Gastrointestinal: ABSENT: abdominal pain, constipation, diarrhea, hematemesis, hematochezia, nausea, vomiting Genitourinary: ABSENT: dysuria, hematuria Musculoskeletal: ABSENT: joint swelling Integumentary: ABSENT: rash, wounds Neurological: PRESENT: frequent falls, weakness. ABSENT: abnormal gait, abnormal speech, confusion, dizziness, focal weakness, syncope Psychiatric: ABSENT: anxiety, depression, homidical ideation, suicidal ideation Endocrine: ABSENT: cold intolerance, heat intolerance, polydipsia, polyuria Hematologic/Lymphatic: ABSENT: easy bleeding, easy bruising Physical Exam Vital Signs: Temp Pulse Resp BP Pulse Ox 98.5 F 83 14 133/52 H 91 L 10/31/18 15:10 10/31/18 15:58 10/31/18 15:58 10/31/18 09:48 10/31/18 15:58 Intake & Output 10/30/18 10/31/18 11/01/18 06:59 06:59 06:59 Intake Total 550 Balance 550 Weight 77.111 kg General appearance: PRESENT: no acute distress, cooperative, well-developed, well-nourished - overweight Head exam: PRESENT: atraumatic, normocephalic Eye exam: PRESENT: conjunctiva pink, EOMI, PERRLA. ABSENT: scleral icterus Ear exam: PRESENT: normal external ear exam Mouth exam: PRESENT: moist, tongue midline Neck exam: ABSENT: carotid bruit, JVD, lymphadenopathy, thyromegaly Respiratory exam: PRESENT: rhonchi - slight bibasilar, symmetrical, tachypnea, unlabored. ABSENT: rales, wheezes Cardiovascular exam: PRESENT: RRR, +S1, +S2. ABSENT: diastolic murmur, rubs, systolic murmur Pulses: PRESENT: normal dorsalis pedis pul Vascular exam: PRESENT: normal capillary refill GI/Abdominal exam: PRESENT: distended, normal bowel sounds, soft. ABSENT: guarding, mass, organolmegaly, rebound, tenderness Rectal exam: PRESENT: deferred Extremities exam: PRESENT: full ROM. ABSENT: calf tenderness, clubbing, pedal edema Neurological exam: PRESENT: alert, awake, oriented to person, oriented to place, oriented to situation, CN II-XII grossly intact, other - Intermittent confusion, socially appropriate. At baseline per .. ABSENT: oriented to time, motor sensory deficit Psychiatric exam: PRESENT: appropriate affect, normal mood. ABSENT: homicidal ideation, suicidal ideation Skin exam: PRESENT: dry, intact, warm. ABSENT: cyanosis, rash Results Laboratory Results: 10/31/18 10:23 10/31/18 10:23 10/31/18 10/31/18 10/31/18 10:23 10:23 10:23 WBC 17.9 H RBC 3.75 L Hgb 10.9 L Hct 33.0 L MCV 88 MCH 29.2 MCHC 33.1 RDW 15.8 H Plt Count 144 L Seg Neutrophils % Not Reportable Lymphocytes % Not Reportable Monocytes % Not Reportable Eosinophils % Not Reportable Basophils % Not Reportable Absolute Neutrophils Not Reportable Absolute Lymphocytes Not Reportable Absolute Monocytes Not Reportable Absolute Eosinophils Not Reportable Absolute Basophils Not Reportable Sodium 141.4 Potassium 4.1 Chloride 112 H Carbon Dioxide 21 L Anion Gap 8 BUN 36 H Creatinine 1.73 H Est GFR ( Amer) 45 L Est GFR (Non-Af Amer) 37 L Glucose 138 H Calcium 9.0 Total Bilirubin 0.6 AST 15 L Alkaline Phosphatase 53 Total Protein 6.1 L Albumin 3.4 L TSH 0.03 L Urine Color Urine Appearance Urine pH Ur Specific [place] Urine Protein Urine Glucose (UA) Urine Ketones Urine Blood Urine Nitrite Ur Leukocyte Esterase Urine WBC (Auto) Urine RBC (Auto) 10/31/18 11:52 WBC RBC Hgb Hct MCV MCH MCHC RDW Plt Count Seg Neutrophils % Lymphocytes % Monocytes % Eosinophils % Basophils % Absolute Neutrophils Absolute Lymphocytes Absolute Monocytes Absolute Eosinophils Absolute Basophils Sodium Potassium Chloride Carbon Dioxide Anion Gap BUN Creatinine Est GFR ( Amer) Est GFR (Non-Af Amer) Glucose Calcium Total Bilirubin AST Alkaline Phosphatase Total Protein Albumin TSH Urine Color YELLOW Urine Appearance CLEAR Urine pH 5.0 Ur Specific [place] 1.016 Urine Protein NEGATIVE Urine Glucose (UA) NEGATIVE Urine Ketones NEGATIVE Urine Blood SMALL H Urine Nitrite NEGATIVE Ur Leukocyte Esterase NEGATIVE Urine WBC (Auto) 1 Urine RBC (Auto) 1 10/31/18 10:23 Troponin I 0.056 Impressions: Head CT 10/31/18 10:21 IMPRESSION: MILD CHRONIC CHANGES OF ATROPHY AND MICROVASCULAR ISCHEMIA. NO A CUTE PROCESS. EVIDENCE OF ACUTE STROKE: NO. Chest X-Ray 10/31/18 11:31 IMPRESSION: NO ACUTE FINDINGS. Assessment and Plan - Diagnosis (1) CAP (community acquired pneumonia) Qualifiers: Laterality: right Lung location: unspecified part of lung Qualified Code(s): J18.9 - Pneumonia, unspecified organism Is this a current diagnosis for this admission?: Yes Plan: Afebrile, scant rhonchi on exam, CXR clear. Patient and report recent productive cough. Blood cultures pending. Will empirically treat for CAP with Rocephin and Azithromycin. Supplemental oxygen as needed. As needed nebulizer treatments. Encourage pulmonary toilet. (2) Leukocytosis Is this a current diagnosis for this admission?: Yes Plan: Likely secondary to CAP. Patient also w/ significant constipation. Afebrile, scant rhonchi on exam, CXR clear. Patient and report recent productive cough. Blood cultures pending. (3) Constipation Is this a current diagnosis for this admission?: Yes Plan: Continue twice daily colace. Milk of Mag x1 now Dulcolax suppository now and daily prm (4) Chronic kidney disease Qualifiers: Chronic kidney disease stage: stage 3 (moderate) Qualified Code(s): N18.3 - Chronic kidney disease, stage 3 (moderate) Is this a current diagnosis for this admission?: Yes Plan: Avoid nephrotoxic medications as able. Monitor daily chemistry. (5) Hyperlipidemia Qualifiers: Hyperlipidemia type: unspecified Qualified Code(s): E78.5 - Hyperlipidemia, unspecified Is this a current diagnosis for this admission?: Yes Plan: Continue home dose atorvastatin. Cardiac diet. (6) Hypertension Qualifiers: Hypertension type: essential hypertension Qualified Code(s): I10 - Essential (primary) hypertension Is this a current diagnosis for this admission?: Yes Plan: Continue home medication regiment of Carvedilol, spironolactone, lisinopril. (7) CAD (coronary artery disease) Qualifiers: Coronary Disease-Associated Artery/Lesion type: unspecified vessel or lesion type Associated angina: without angina Is this a current diagnosis for this admission?: Yes Plan: No chest pain at present. Troponin negative. EKG is negative for ischemic changes. Continue home medication regiment of aspirin, Plavix, atorvastatin, Ranexa, carvedilol, spironolactone, lisinopril. - Time Time Spent with patient: 35 or more minutes Medications reviewed and adjusted accordingly: Yes Anticipated discharge: Home Within: within 24 hours
[2018-10-31] MEDS: RANOLAZINE 500 MG TAB.SR.12H PO SCH (21:20)
[2018-10-31] MEDS: HEPARIN SOD (PORCINE) 5,000 UNIT/ML 1 ML VIAL SUBCUT SCH (21:20)
[2018-10-31] MEDS: CARVEDILOL 6.25 MG TABLET PO SCH (21:20)
[2018-11-01] MEDS: NORMAL SALINE 1000 ML 1,000 ML IV PRN ×2 (01:08→09:51)
[2018-11-01 04:12] LABS: HEMATOCRIT 29.8 % (37.9-51.0); HEMOGLOBIN 9.9 g/dL (13.5-17.0); MEAN CORPUSCULAR HEMOGLOBIN 29.5 pg (27.0-33.4); MEAN CORPUSCULAR HGB CONC 33.3 g/dL (32.0-36.0); MEAN CORPUSCULAR VOLUME 89 fl (80-97); PLATELET COUNT 121 10^3/uL (150-450); RED BLOOD COUNT 3.35 10^6/uL (4.35-5.55); RED CELL DISTRIBUTION WIDTH 15.7 % (11.5-14.0); WHITE BLOOD COUNT 15.2 10^3/uL (4.0-10.5)
[2018-11-01 04:27] LABS: ANION GAP 9 (5-19); BLOOD UREA NITROGEN 37 mg/dL (7-20); CALCIUM 8.3 mg/dL (8.4-10.2); CARBON DIOXIDE 21 mmol/L (22-30); CHLORIDE 109 mmol/L (98-107); GLUCOSE 121 mg/dL (75-110); POTASSIUM 4.4 mmol/L (3.6-5.0)
[2018-11-01] MEDS: HEPARIN SOD (PORCINE) 5,000 UNIT/ML 1 ML VIAL SUBCUT SCH ×3 (05:03→21:23)
[2018-11-01] MEDS: PANTOPRAZOLE SODIUM 40 MG TABLET.DR PO SCH (05:03)
[2018-11-01] MEDS ORDERED: PANTOPRAZOLE SODIUM 20 MG TABLET.DR PO SCH (06:00)
[2018-11-01] MEDS: IPRATROPIUM/ALBUTEROL 0.5-2.5 MG/3 ML AMPUL NEB SCH ×2 (07:53→15:39)
[2018-11-01] MEDS ORDERED: AZITHROMYCIN 500 MG in DEXTROSE 5%-WATER 250 ML IV SCH (10:00)
[2018-11-01] MEDS ORDERED: LISINOPRIL 5 MG TABLET PO SCH (10:00)
[2018-11-01] MEDS ORDERED: SPIRONOLACTONE 25 MG TABLET PO SCH (10:00)
[2018-11-01] MEDS ORDERED: TAMSULOSIN HCL 0.4 MG CAP.SR.24H PO SCH (10:00)
[2018-11-01] MEDS ORDERED: CEFTRIAXONE 1 GM/D5W RTU 50 ML IV SCH (10:00)
[2018-11-01] MEDS: CARVEDILOL 6.25 MG TABLET PO SCH (10:17)
[2018-11-01] MEDS: DOCUSATE SODIUM 100 MG/10 ML UDC PO SCH ×2 (10:20→18:52)
[2018-11-01] MEDS: FINASTERIDE 5 MG TABLET PO SCH (10:22)
[2018-11-01] MEDS: RANOLAZINE 500 MG TAB.SR.12H PO SCH ×2 (10:22→21:23)
[2018-11-01] MEDS: CLOPIDOGREL BISULFATE 75 MG TABLET PO SCH (10:23)
[2018-11-01] MEDS: ASPIRIN 81 MG TABLET, ENT COATED PO SCH (10:23)
[2018-11-01] MEDS: ATORVASTATIN CALCIUM 20 MG TABLET PO SCH (10:23)
[2018-11-01] MEDS ORDERED: GLUCAGON,HUMAN RECOMB 1 MG INJ SUBCUT PRN (10:36)
[2018-11-01] MEDS ORDERED: DEXTROSE 40% GEL 15 GM TUBE PO PRN ×2 (10:36)
[2018-11-01] MEDS ORDERED: DEXTROSE 50%-WATER 25 GM/50 ML DISP.SYRIN IV PRN ×2 (10:36)
--- NOTE | 2018-11-01 11:11 | PDOC CONSULTATION ---
Consultation Consult Date: 11/01/18 Provider Consulted: DELORES VINCENT Consult reason:: perineal abscess History of Present Illness Admission Date/PCP: 10/31/18 14:13 Patient complains of: fall, weakness History of Present Illness: LEANNE FAROOQ is a 88 year old male a past medical history of recent [place] (5 stents), HTN, HLD, COPD, remote CVA, Hypothyroidism, BPH, GERD, and dementia who presented to the ED via EMS for a fall and generalized weakness. Patient's reports that patient has had increased weakness for the previous several days. Evaluation in the ED revealed a normal C-Xray, CT head significant for chronic changes. His blood work reveals leukocytosis (15.2) and mild kidney disease. On Physical exam, he has an abscess of the perineum which appears to extend toward the oiinner groin and the perineum bilaterally. He denies any significant pain or other symptoms; however, his demeaneor appears influenced by his early dementia. Past Medical History Cardiac Medical History: Reports: Coronary Artery Disease, Myocardial Infarction, Hyperlipidema, Hypertension Pulmonary Medical History: Reports: Chronic Obstructive Pulmonary Disease (COPD) Denies: Asthma EENT Medical History: Reports: None Neurological Medical History: Reports: Ischemic CVA Denies: Seizures Endocrine Medical History: Reports: Hypothyroidism Denies: Diabetes Mellitus Type 2 Renal/ Medical History: Reports: Chronic Kidney Disease Malignancy Medical History: Reports: None GI Medical History: Reports: Gastroesophageal Reflux Disease Denies: Hepatitis, Hiatal Hernia Musculoskeltal Medical History: Reports: Arthritis Psychiatric Medical History: Reports: Dementia Denies: Depression Hematology: Reports: Anemia Denies: Sickle Cell Disease Past Surgical History Past Surgical History: Reports: Cardiac Catheterization, Coronary Stent, T onsillectomy Denies: Pacemaker Social History Lives with: Spouse/Significant other Smoking Status: Former Smoker Frequency of Alcohol Use: None Hx Recreational Drug Use: No Drugs: None Hx Prescription Drug Abuse: No - Advance Directive Resuscitation Status: Full Code Family History Family History: Reviewed & Not Pertinent, Hypertension Parental Family History Reviewed: No Children Family History Reviewed: No Sibling(s) Family History Reviewed.: No Medication/Allergy Home Medications: Atorvastatin Calcium [Lipitor 20 mg Tablet] 1 tab PO DAILY 02/04/17 Finasteride [Proscar 5 mg Tablet] 5 mg PO DAILY 10/09/17 Tamsulosin HCl [Flomax] 0.4 mg PO DAILY 10/09/17 Carvedilol [Coreg 6.25 mg Tablet] 6.25 mg PO Q12 #60 tablet 10/12/17 Ranolazine [Ranexa 500 mg Tab.sr] 500 mg PO Q12 #60 tab.sr.12h 10/12/17 Docusate Sodium [Colace 100 mg Capsule] 100 mg PO BID PRN 05/22/18 Aspirin [Ecotrin 81 mg EC Tablet] 81 mg PO DAILY 10/31/18 Clopidogrel Bisulfate [Plavix 75 mg Tablet] 75 mg PO DAILY 10/31/18 Lansoprazole 15 mg PO DAILY 10/31/18 Lidocaine/Tetracaine [Lidocaine-Tetracaine 7%-7% Crm] 0.5 gm TP QID 10/31/18 Lisinopril [Zestril] 2.5 mg PO DAILY 10/31/18 Spironolactone [Aldactone 25 mg Tablet] 12.5 mg PO DAILY 10/31/18 Allergies/Adverse Reactions: No Known Allergies Allergy (Verified 08/08/18 11:50) Physical Exam Vital Signs: Temp Pulse Resp BP Pulse Ox 98.8 F 80 14 100/45 L 95 11/01/18 08:00 11/01/18 08:00 11/01/18 08:00 11/01/18 08:00 11/01/18 08:00 Intake & Output 10/31/18 11/01/18 11/02/18 06:59 06:59 06:59 Intake Total 1790 1000 Output Total 1 Balance 1789 1000 Weight 77.111 kg General appearance: PRESENT: no acute distress Head exam: PRESENT: atraumatic Eye exam: PRESENT: conjunctiva pale, EOMI Mouth exam: PRESENT: moist, neck supple Teeth exam: PRESENT: edentulous - with dentures Neck exam: PRESENT: full ROM Respiratory exam: PRESENT: clear to auscultation chace Cardiovascular exam: PRESENT: RRR GI/Abdominal exam: PRESENT: normal bowel sounds, soft Rectal exam: PRESENT: other - Left perineum: area of induration and ulceration with mild discharge, the induration extends to the left inner groin (fold between thigh and scrotum) as well as contralaterally to the right peineum Extremities exam: PRESENT: full ROM Musculoskeletal exam: PRESENT: full ROM Neurological exam: PRESENT: alert, oriented to time, oriented to situation Psychiatric exam: PRESENT: other - answeres and affect are blunted by patient Jonah Skin exam: PRESENT: other - see rectal exam Results Laboratory Results: 11/01/18 03:48 11/01/18 03:48 10/31/18 10/31/18 10/31/18 10:23 10:23 10:23 WBC 17.9 H RBC 3.75 L Hgb 10.9 L Hct 33.0 L MCV 88 MCH 29.2 MCHC 33.1 RDW 15.8 H Plt Count 144 L Seg Neutrophils % Not Reportable Lymphocytes % Not Reportable Monocytes % Not Reportable Eosinophils % Not Reportable Basophils % Not Reportable Absolute Neutrophils Not Reportable Absolute Lymphocytes Not Reportable Absolute Monocytes Not Reportable Absolute Eosinophils Not Reportable Absolute Basophils Not Reportable Sodium 141.4 Potassium 4.1 Chloride 112 H Carbon Dioxide 21 L Anion Gap 8 BUN 36 H Creatinine 1.73 H Est GFR ( Amer) 45 L Est GFR (Non-Af Amer) 37 L Glucose 138 H Calcium 9.0 Total Bilirubin 0.6 AST 15 L Alkaline Phosphatase 53 Total Protein 6.1 L Albumin 3.4 L TSH 0.03 L Urine Color Urine Appearance Urine pH Ur Specific [place] Urine Protein Urine Glucose (UA) Urine Ketones Urine Blood Urine Nitrite Ur Leukocyte Esterase Urine WBC (Auto) Urine RBC (Auto) 10/31/18 11/01/18 11/01/18 11:52 03:48 03:48 WBC 15.2 H RBC 3.35 L Hgb 9.9 L Hct 29.8 L MCV 89 MCH 29.5 MCHC 33.3 RDW 15.7 H Plt Count 121 L Seg Neutrophils % Lymphocytes % Monocytes % Eosinophils % Basophils % Absolute Neutrophils Absolute Lymphocytes Absolute Monocytes Absolute Eosinophils Absolute Basophils Sodium 139.3 Potassium 4.4 Chloride 109 H Carbon Dioxide 21 L Anion Gap 9 BUN 37 H Creatinine 1.86 H Est GFR ( Amer) 42 L Est GFR (Non-Af Amer) 34 L Glucose 121 H Calcium 8.3 L Total Bilirubin AST Alkaline Phosphatase Total Protein Albumin TSH Urine Color YELLOW Urine Appearance CLEAR Urine pH 5.0 Ur Specific [place] 1.016 Urine Protein NEGATIVE Urine Glucose (UA) NEGATIVE Urine Ketones NEGATIVE Urine Blood SMALL H Urine Nitrite NEGATIVE Ur Leukocyte Esterase NEGATIVE Urine WBC (Auto) 1 Urine RBC (Auto) 1 10/31/18 10:23 Troponin I 0.056 Impressions: Head CT 10/31/18 10:21 IMPRESSION: MILD CHRONIC CHANGES OF ATROPHY AND MICROVASCULAR ISCHEMIA. NO ACUTE PROCESS. EVIDENCE OF ACUTE STROKE: NO. Chest X-Ray 10/31/18 11:31 IMPRESSION: NO ACUTE FINDINGS. Assessment & Plan - Diagnosis (2) Leukocytosis Is this a current diagnosis for this admission?: Yes - Plan Summary Plan Summary: A/ Multiple site perineal abscess On Physical exam: Left perineum: area of induration and ulceration with mild discharge, the induration extends to the left inner groin (fold between thigh and scrotum) as well as contralaterally to the right perineum Leukocytosis dementia Blood cx negative so far Multiple medical problems Mild chronic kidney failure P/ I&D of perineal multiple site abscess with rigid proctosigmoidoscopy Procedure, risks, benefits explained to the patient's , she understands, and decides to proceed today NPO IVF Zosyn abx Preop EKG CT scan pelvis
[2018-11-01] MEDS ORDERED: PIPERACILLIN SODIUM/TAZOBACTAM 3.375 GM in NORMAL SALINE 100 ML IV SCH (12:00)
[2018-11-01] MEDS: CARVEDILOL 3.125 MG TABLET PO SCH ×2 (12:09→21:23)
[2018-11-01] MEDS: PIPERACILLIN SODIUM/TAZOBACTAM 2.25 GM in NORMAL SALINE 50 ML IV SCH ×2 (12:59→19:53)
--- NOTE | 2018-11-01 13:40 | RADIOLOGY REPORT (SQ) ---
EXAM DESCRIPTION: CT PELVIS WITH COMPLETED DATE/TIME: 11/01/2018 1:26 pm REASON FOR STUDY: prei-rectal abscess K61.1 RECTAL ABSCESS COMPARISON: None. TECHNIQUE: CT scan of the pelvis performed with intravenous contrast. 82 mL Omnipaque 350 low osmol ar contrast administered. BUN 37 creatinine 1.86 Images reviewed with soft tissue and bone windows. Reconstructed coronal and sagittal MPR images reviewed. All images stored on PACS. All CT scanners at this facility use dose modulation, iterative reconstruction, and/or weight based d osing when appropriate to reduce radiation dose to as low as reasonably achievable (ALARA). [facility]: Dose Right [facility]: CareDose [facility]: Dose Right [facility]: Teradose 4D [facility]: [place]har RADIATION DOSE: CT Rad equipment meets quality standard of care and radiation dose reduction techniq ues were employed. CTDIvol: 7.1 - 8.5 mGy. DLP: 548 mGy-cm. mGy. LIMITATIONS: None. FINDINGS: PELVIC BONES: No acute fracture. No worrisome bone lesions. VISUALIZED SPINE: No acute findings. HIP(S): No acute fracture or dislocation. No worrisome bone lesions. PELVIC SOFT TISSUES: Sigmoid diverticulosis with no associated inflammation. Urinary bladder is norm al. Retained stool. EXTRAPELVIC SOFT TISSUES: There is considerable stranding in the medial upper left thigh and perineum . No abscess is seen. OTHER: Small uncomplicated inguinal hernias. IMPRESSION: There are inflammatory changes in the medial left thigh and perineum. No abscess is see n. There is diverticulosis coli. TECHNICAL DOCUMENTATION: JOB ID: [id number] Quality ID # [id number]: Final reports with documentation of one or more dose reduction techniques (e.g., Au tomated exposure control, adjustment of the mA and/or kV according to patient size, use of iterative reconstruction technique) 2010 [employer]- All Rights Reserved Reading location - IP/workstation name: [email or web address]
--- NOTE | 2018-11-01 15:09 | PDOC PROGRESS REPORT ---
Subjective Progress Note for:: 11/01/18 Subjective:: LEANNE FAROOQ is a 88 year old male with a past medical history of recent [place] (5 stents), HTN, HLD, COPD, remote CVA, Hypothyroidism, BPH, GERD, and dementia who was admitted 10/31/18 for increased confusion, generalized weakness and falls. Patient was seen on morning rounds. He was found resting in bed comfortably on room air. He is orientated to self and hospital, but otherwise pleasantly confused. He is socially appropriate, conversational, and follows directions. He denies all complaints at this time; no fever, body aches, chest pain, difficulty breathing, abdominal pain, nausea or vomiting. He does confirm perineal discomfort; noted to have abscess to his right perineum. ROS is somewhat limited secondary to baseline mental status. He does appear to be comfortable and not in any acute distress at this time. No concerns per nursing. Reason For Visit: PERIRECTAL ABSCESS, LEUKOCYTOSIS, FEVER Physical Exam Vital Signs: Temp Pulse Resp BP Pulse Ox 98.1 F 71 14 101/46 L 96 11/01/18 12:00 11/01/18 12:00 11/01/18 12:00 11/01/18 12:00 11/01/18 12:00 Intake & Output 10/31/18 11/01/18 11/02/18 06:59 06:59 06:59 Intake Total 1790 1678 Output Total 1 Balance 1789 1678 Weight 77.111 kg General appearance: PRESENT: no acute distress, cooperative, well-developed, well-nourished - Overweight Head exam: PRESENT: atraumatic, normocephalic Eye exam: PRESENT: conjunctiva pink, EOMI, PERRLA. ABSENT: scleral icterus Ear exam: PRESENT: normal external ear exam Mouth exam: PRESENT: moist, tongue midline Neck exam: ABSENT: carotid bruit, JVD, lymphadenopathy, thyromegaly Respiratory exam: PRESENT: clear to auscultation chace, symmetrical, unlabored. ABSENT: rales, rhonchi, wheezes Cardiovascular exam: PRESENT: RRR, +S1, +S2. ABSENT: diastolic murmur, rubs, systolic murmur Pulses: PRESENT: normal dorsalis pedis pul Vascular exam: PRESENT: normal capillary refill GI/Abdominal exam: PRESENT: normal bowel sounds, soft. ABSENT: distended, guarding, mass, organolmegaly, rebound, tenderness Rectal exam: PRESENT: deferred Extremities exam: PRESENT: full ROM. ABSENT: calf tenderness, clubbing, pedal edema Neurological exam: PRESENT: alert, awake, oriented to person, oriented to place, CN II-XII grossly intact, other - Pleasantly confused. ABSENT: oriented to time, oriented to situation, motor sensory deficit Psychiatric exam: PRESENT: appropriate affect, normal mood. ABSENT: homicidal ideation, suicidal ideation Skin exam: PRESENT: dry, warm, other - Stage II sacral wound. Abscess to the right perineum. ABSENT: cyanosis, rash Results Laboratory Results: 11/01/18 03:48 11/01/18 03:48 11/01/18 11/01/18 03:48 03:48 WBC 15.2 H RBC 3.35 L Hgb 9.9 L Hct 29.8 L MCV 89 MCH 29.5 MCHC 33.3 RDW 15.7 H Plt Count 121 L Sodium 139.3 Potassium 4.4 Chloride 109 H Carbon Dioxide 21 L Anion Gap 9 BUN 37 H Creatinine 1.86 H Est GFR ( Amer) 42 L Est GFR (Non-Af Amer) 34 L Glucose 121 H Calcium 8.3 L 10/31/18 10:23 Troponin I 0.056 Impressions: Head CT 10/31/18 10:21 IMPRESSION: MILD CHRONIC CHANGES OF ATROPHY AND MICROVASCULAR ISCHEMIA. NO ACUTE PROCESS. EVIDENCE OF ACUTE STROKE: NO. Chest X-Ray 10/31/18 11:31 IMPRESSION: NO ACUTE FINDINGS. Pelvis CT 11/01/18 00:00 IMPRESSION: There are inflammatory changes in the medial left thigh and p erineum. No abscess is seen. There is diverticulosis coli. Assessment and Plan - Diagnosis (1) Abscess of multiple sites of perineum Is this a current diagnosis for this admission?: Yes Plan: Sacral decubitus ulcer and abscesses noted during hygiene care today. CT of pelvis with contrast revealed inflammatory changes to the medial left thigh and perineum; no abscesses notified. Blood cultures pending Surgery was consulted; appreciate Dr. Chavez's evaluation and assistance. Poss ible surgical debridement this afternoon. Currently in n.p.o. status. Antibiotics changed to IV Zosyn. (2) Leukocytosis Is this a current diagnosis for this admission?: Yes Plan: Decreased from 17.9-15.2. Patient was nearly initially placed on azithromycin and Rocephin for treatment of CAP as there was no other definitive source of infection identified. However, CXR was clear. Patient now found to have a sacral decubitus ulcer with possible abscess formation to his right perineum. Blood cultures pending. Antibiotics as above. (3) Constipation Is this a current diagnosis for this admission?: Yes Plan: Resolved; large bm yesterday Continue twice daily colace. (4) Chronic kidney disease Qualifiers: Chronic kidney disease stage: stage 3 (moderate) Qualified Code(s): N18.3 - Chronic kidney disease, stage 3 (moderate) Is this a current diagnosis for this admission?: Yes Plan: Stable; baseline creatinine of 1.73. Avoid nephrotoxic medications as able. Monitor daily chemistry. (5) Hyperlipidemia Qualifiers: Hyperlipidemia type: unspecified Qualified Code(s): E78.5 - Hyperlipidemia, unspecified Is this a current diagnosis for this admission?: Yes Plan: Continue home dose atorvastatin. Cardiac diet. (6) Hypertension Qualifiers: Hypertension type: essential hypertension Qualified Code(s): I10 - Essential (primary) hypertension Is this a current diagnosis for this admission?: Yes Plan: Continue home medication regiment of Carvedilol, spironolactone, lisinopril. (7) CAD (coronary artery disease) Qualifiers: Coronary Disease-Associated Artery/Lesion type: unspecified vessel or lesion type Associated angina: without angina Is this a current diagnosis for this admission?: Yes Plan: No chest pain at present. Troponin negative. EKG is negative for ischemic changes. Continue home medication regiment of aspirin, Plavix, atorvastatin, Ranexa, carvedilol, spironolactone, lisinopril. (8) CAP (community acquired pneumonia) Qualifiers: Laterality: right Lung location: unspecified part of lung Qualified Code(s): J18.9 - Pneumonia, unspecified organism Is this a current diagnosis for this admission?: Yes Plan: Ruled out; Afebrile, scant rhonchi on exam, though CXR clear and maintaining oxygen saturations on room air. Patient and report recent productive cough. Supplemental oxygen as needed. As needed nebulizer treatments. Encourage pulmonary toilet. - Time Time Spent with patient: 25-34 minutes Medications reviewed and adjusted accordingly: Yes Anticipated discharge: Home with Homehealth
--- NOTE | 2018-11-01 15:10 | Progress Note Acknowledgement ---
Progress Note Acknowledgement Progess Note Acknowledgement: I, the undersigned member of the medical staff with appropriate privileges and with supervisory authority over Melanie Pearson, a [facility] practice allied health professional, acknowledge that I have reviewed the progress notes entered on this patient, and in my professional judgment believe that the assessment made and/or any care evidenced was appropriate
[2018-11-01] MEDS ORDERED: MIDAZOLAM 2 MG/2 ML INJ ONE (17:15)
[2018-11-01] MEDS ORDERED: PROPOFOL INJ 200 MG/20 ML VIAL IV ONE (17:15)
[2018-11-01] MEDS ORDERED: FENTANYL CITRATE INJ/PF 100 MCG/2 ML AMPUL ONE (17:15)
[2018-11-01] MEDS ORDERED: LIDOCAINE 1%/EPINEPHRINE INJ 20 ML VIAL ONE (17:54)
[2018-11-01] MEDS ORDERED: CEFTRIAXONE SODIUM 1,000 MG in DEXTROSE 5%-WATER 50 ML IV SCH (18:00)
--- NOTE | 2018-11-01 18:58 | Operative Report ---
Nonrecallable Operative Report DATE OF SURGERY: 11/01/18 PREOPERATIVE DIAGNOSIS: left perineal abscess. left groin abscess POSTOPERATIVE DIAGNOSIS: same OPERATION: incision & drainage of lefr perineal and left groin ANESTHESIA: Other - 60 mL 1% lidocaine with epinephrine TISSUE REMOVED OR ALTERED: pus from abscess cavity COMPLICATIONS: none ESTIMATED BLOOD LOSS: < 5 mL INTRAOPERATIVE FINDINGS: left perineal abscess extending toward the left groin along the crease between thigh and scrotum PROCEDURE: see dictation
[2018-11-01] MEDS ORDERED: MORPHINE SULFATE 10 MG/ML INJ IV PRN (19:02)
[2018-11-01 20:29] LABS: ANION GAP 10 (5-19); BLOOD UREA NITROGEN 41 mg/dL (7-20); CALCIUM 8.5 mg/dL (8.4-10.2); CARBON DIOXIDE 18 mmol/L (22-30); CHLORIDE 109 mmol/L (98-107); GLUCOSE 115 mg/dL (75-110); POTASSIUM 4.8 mmol/L (3.6-5.0)
[2018-11-01] MEDS ORDERED: ACETAMINOPHEN 1,000 MG/100 ML RTUPB IV ONE ×2 (20:30)
[2018-11-01] MEDS ORDERED: CARVEDILOL 6.25 MG TABLET PO SCH (22:00)
[2018-11-02] MEDS ORDERED: NORMAL SALINE 1000 ML 1,000 ML IV ONE (00:30)
[2018-11-02] MEDS: PIPERACILLIN SODIUM/TAZOBACTAM 2.25 GM in NORMAL SALINE 50 ML IV SCH ×5 (00:36→23:16)
[2018-11-02] MEDS: IPRATROPIUM/ALBUTEROL 0.5-2.5 MG/3 ML AMPUL NEB SCH ×4 (00:58→23:42)
[2018-11-02 01:19] LABS: APPEARANCE,URINE SLIGHTLY-CLOUDY; BILIRUBIN,URINE NEGATIVE (NEGATIVE); COLOR,URINE YELLOW; GLUCOSE, URINE NEGATIVE (NEGATIVE); KETONES,URINE NEGATIVE (NEGATIVE); LEUKOCYTE ESTERASE,URINE NEGATIVE (NEGATIVE); NITRITE,URINE NEGATIVE (NEGATIVE); PROTEIN,URINE NEGATIVE (NEGATIVE); UROBILINOGEN,URINE NEGATIVE mg/dL (<2.0)
[2018-11-02] MEDS: ACETAMINOPHEN 325 MG TABLET PO SCH ×4 (02:26→21:56)
[2018-11-02] MEDS: PANTOPRAZOLE SODIUM 40 MG TABLET.DR PO SCH (05:13)
[2018-11-02] MEDS: HEPARIN SOD (PORCINE) 5,000 UNIT/ML 1 ML VIAL SUBCUT SCH ×3 (05:13→21:47)
[2018-11-02 07:55] LABS: HEMATOCRIT 25.7 % (37.9-51.0); HEMOGLOBIN 8.7 g/dL (13.5-17.0); MEAN CORPUSCULAR HEMOGLOBIN 30.4 pg (27.0-33.4); MEAN CORPUSCULAR HGB CONC 33.9 g/dL (32.0-36.0); MEAN CORPUSCULAR VOLUME 90 fl (80-97); PLATELET COUNT 110 10^3/uL (150-450); RED BLOOD COUNT 2.87 10^6/uL (4.35-5.55); RED CELL DISTRIBUTION WIDTH 15.4 % (11.5-14.0); WHITE BLOOD COUNT 10.9 10^3/uL (4.0-10.5)
[2018-11-02 08:08] LABS: ANION GAP 9 (5-19); BLOOD UREA NITROGEN 44 mg/dL (7-20); CALCIUM 7.8 mg/dL (8.4-10.2); CARBON DIOXIDE 18 mmol/L (22-30); CHLORIDE 112 mmol/L (98-107); GLUCOSE 81 mg/dL (75-110); POTASSIUM 4.4 mmol/L (3.6-5.0)
--- NOTE | 2018-11-02 09:19 | PDOC PROGRESS REPORT ---
Subjective Progress Note for:: 11/02/18 Subjective:: 88 year old male with a past medical history of recent [place] (5 stents), HTN, HLD, COPD, remote CVA, Hypothyroidism, BPH, GERD, and dementia who was admitted 10/31/18 for increased confusion, generalized weakness and falls. Patient was seen on morning rounds. He was found resting in bed comfortably on room air. He is orientated to self and hospital, but otherwise pleasantly confused. He is socially appropriate, conversational, and follows directions. He denies all complaints at this time; no fever, body aches, chest pain, difficulty breathing, abdominal pain, nausea or vomiting. He does confirm perineal discomfort; noted to have abscess to his right perineum. ROS is somewhat limited secondary to baseline mental status. He does appear to be comfortable and not in any acute distress at this time. No concerns per nursing. 11/02/[id number]-lipe-old male with multiple medical problems including coronary artery disease with STEMI, hypertension, hyperlipidemia, COPD, remote CVA, BPH, gastroesophageal reflux disease, dementia admitted for increased confusion generalized weakness and falls. Patient found to have an abscess or perirectal abscess status post IND was done yesterday. He was hypotensive this morning blood pressure is 94/44 despite being on IV fluids 125 cc/h. Plan is to stop lisinopril, spironolactone, Coreg for today. And creatinine is also worsened to 2.04. His baseline creatinine is around 1.7. Patient is comfortably in the bed communicating okay not confused not agitated. Reason For Visit: PERIRECTAL ABSCESS, LEUKOCYTOSIS, FEVER Physical Exam Vital Signs: Temp Pulse Resp BP Pulse Ox 98.5 F 74 14 93/45 L 98 11/02/18 00:30 11/02/18 07:45 11/02/18 07:45 11/02/18 05:17 11/02/18 07:45 Pulse Oximeter Continuous Start: 11/01/18 19:06 Freq: RTQ4 Status: Active Protocol: Document 11/02/18 07:45 [facility] [place]Rec: 11/02/18 07:56 [facility] [place] [id number]) Pulse Oximetry Assessment Oxygen Saturation (92-100) 98 Oxygen Flow Rate (L/min) 2 Oxygen Delivery Method Nasal Cannula Fraction of Inspired Oxygen (FIO2) 28 Equipment Usage Equipment in Use Continuous SpO2 Machine # N 6 Intake & Output 11/01/18 11/02/18 11/03/18 06:59 06:59 06:59 Intake Total 1790 3303 Output Total 1 804 Balance 1788 8789 Weight 77.111 kg 84.3 kg General appearance: PRESENT: no acute distress Head exam: PRESENT: atraumatic Eye exam: PRESENT: PERRLA Mouth exam: PRESENT: moist, tongue midline Neck exam: ABSENT: carotid bruit, JVD, lymphadenopathy, thyromegaly Respiratory exam: PRESENT: clear to auscultation chace. ABSENT: rales, rhonchi, wheezes Cardiovascular exam: PRESENT: RRR. ABSENT: diastolic murmur, rubs, systolic mur mur GI/Abdominal exam: PRESENT: normal bowel sounds, soft. ABSENT: distended, guarding, mass, organolmegaly, rebound, tenderness Rectal exam: PRESENT: deferred Extremities exam: PRESENT: full ROM. ABSENT: calf tenderness, clubbing, pedal edema Neurological exam: PRESENT: alert, awake, oriented to person, oriented to place, oriented to time, oriented to situation, CN II-XII grossly intact. ABSENT: motor sensory deficit Psychiatric exam: PRESENT: appropriate affect, normal mood. ABSENT: homicidal ideation, suicidal ideation Results Laboratory Results: 11/02/18 06:57 11/02/18 06:57 11/01/18 11/01/18 11/02/18 00:48 19:45 06:57 WBC 10.9 H RBC 2.87 L Hgb 8.7 L Hct 25.7 L MCV 90 MCH 30.4 MCHC 33.9 RDW 15.4 H Plt Count 110 L Sodium 137.2 Potassium 4.8 Chloride 109 H Carbon Dioxide 18 L Anion Gap 10 BUN 41 H Creatinine 1.86 H Est GFR ( Amer) 42 L Est GFR (Non-Af Amer) 34 L Glucose 115 H Calcium 8.5 Urine Color YELLOW Urine Appearance SLIGHTLY-CLOUDY Urine pH 5.0 Ur Specific [place] 1.040 Urine Protein NEGATIVE Urine Glucose (UA) NEGATIVE Urine Ketones NEGATIVE Urine Blood NEGATIVE Urine Nitrite NEGATIVE Ur Leukocyte Esterase NEGATIVE Urine WBC (Auto) 1 Urine RBC (Auto) 1 11/02/18 06:57 WBC RBC Hgb Hct MCV MCH MCHC RDW Plt Count Sodium 139.2 Potassium 4.4 Chloride 112 H Carbon Dioxide 18 L Anion Gap 9 BUN 44 H Creatinine 2.04 H Est GFR ( Amer) 37 L Est GFR (Non-Af Amer) 31 L Glucose 81 Calcium 7.8 L Urine Color Urine Appearance Urine pH Ur Specific [place] Urine Protein Urine Glucose (UA) Urine Ketones Urine Blood Urine Nitrite Ur Leukocyte Esterase Urine WBC (Auto) Urine RBC (Auto) 10/31/18 10:23 Troponin I 0.056 Impressions: Head CT 10/31/18 10:21 IMPRESSION: MILD CHRONIC CHANGES OF ATROPHY AND MICROVASCULAR ISCHEMIA. NO ACUTE PROCESS. EVIDENCE OF ACUTE STROKE: NO. Chest X-Ray 10/31/18 11:31 IMPRESSION: NO ACUTE FINDINGS. Pelvis CT 11/01/18 00:00 IMPRESSION: There are inflammatory changes in the medial left thigh and perineum. No abscess is seen. There is diverticulosis coli. Assessment and Plan - Diagnosis (1) Abscess of multiple sites of perineum Is this a current diagnosis for this admission?: Yes Plan: Sacral decubitus ulcer and abscesses noted during hygiene care today. CT of pelvis with contrast revealed inflammatory changes to the medial left thigh and perineum; no abscesses notified. Blood cultures pending Surgery was consulted; appreciate Dr. Chavez's evaluation and assistance. Possible surgical debridement this afternoon. Currently in n.p.o. status. Antibiotics changed to IV Zosyn. 11/02/2018-patient admitted with perirectal abscess status post I&D was done yesterday. Patient is presently on IV Zosyn. Cultures are negative so far. WBC count came down to 10,900. Plan is to continue the present management. (2) Leukocytosis Is this a current diagnosis for this admission?: Yes Plan: Decreased from 17.9-15.2. Patient was nearly initially placed on azithromycin and Rocephin for treatment of CAP as there was no other definitive source of infection identified. However, CXR was clear. Patient now found to have a sacral decubitus ulcer with possible abscess formation to his right perineum. Blood cultures pending. Antibiotics as above. 11/02/2018-WBC count came down to normal 10,900. Patient is afebrile. But hypotensive. Plan is to continue IV fluids normal saline at 125 cc/h and blood pressure medications are on hold. Status post I&D was done yesterday. [facility] surgery is continue to follow the patient on regular basis. (3) Chronic kidney disease Qualifiers: Chronic kidney disease stage: stage 3 (moderate) Qualified Code(s): N18.3 - Chronic kidney disease, stage 3 (moderate) Is this a current diagnosis for this admission?: Yes Plan: Stable; baseline creatinine of 1.73. Avoid nephrotoxic medications as able. Monitor daily chemistry. 11/02/2018-patient's baseline creatinine is around 1.7 it was worsened to 2.04 today. Plan is to continue IV fluids at 125 cc/h and hold lisinopril, spironolactone and Coreg for today because the blood pressure is 94/44. plan Is to repeat the labs tomorrow. (4) Hypertension Qualifiers: Hypertension type: essential hypertension Qualified Code(s): I10 - Essential (primary) hypertension Is this a current diagnosis for this admission?: Yes Plan: Continue home medication regiment of Carvedilol, spironolactone, lisinopril. 11/02/2018-patient blood pressure today is 94/44 despite being on IV fluids 125 cc/h plan is to hold Coreg, spironolactone and lisinopril for today. (5) CAD (coronary artery disease) Qualifiers: Coronary Disease-Associated Artery/Lesion type: unspecified vessel or lesion type Associated angina: without angina Is this a current diagnosis for this admission?: Yes Plan: No chest pain at present. Troponin negative. EKG is negative for ischemic changes. Continue home medication regiment of aspirin, Plavix, atorvastatin, Ranexa, carvedilol, spironolactone, lisinopril. 11/02/2018-no complaints of chest pain today plan is to continue aspirin, Plavix, atorvastatin and Ranexa and to hold blood pressure medications because the blood pressure is very low today. (6) CAP (community acquired pneumonia) Qualifiers: Laterality: right Lung location: unspecified part of lung Qualified Code(s): J18.9 - Pneumonia, unspecified organism Is this a current diagnosis for this admission?: Yes Plan: Ruled out; Afebrile, scant rhonchi on exam, though CXR clear and maintaining oxygen saturations on room air. Patient and report recent productive cough. Supplemental oxygen as needed. As needed nebulizer treatments. Encourage pulmonary toilet. 11/02/2018-chest x-ray was negative and pulse oxes within normal range at 98% on 2 L community-acquired pneumonia is ruled out. - Time Time Spent with patient: 25-34 minutes Medications reviewed and adjusted accordingly: Yes Anticipated discharge: Home
[2018-11-02] MEDS: ATORVASTATIN CALCIUM 20 MG TABLET PO SCH (09:29)
[2018-11-02] MEDS: RANOLAZINE 500 MG TAB.SR.12H PO SCH ×2 (09:29→21:56)
[2018-11-02] MEDS: FINASTERIDE 5 MG TABLET PO SCH (09:29)
[2018-11-02] MEDS: DOCUSATE SODIUM 100 MG/10 ML UDC PO SCH ×2 (09:29→17:28)
[2018-11-02] MEDS: ASPIRIN 81 MG TABLET, ENT COATED PO SCH (09:29)
[2018-11-02] MEDS: CLOPIDOGREL BISULFATE 75 MG TABLET PO SCH (09:29)
[2018-11-02] MEDS: NORMAL SALINE 1000 ML 1,000 ML IV PRN ×2 (09:33→17:34)
--- NOTE | 2018-11-02 12:10 | PDOC PROGRESS REPORT ---
Subjective Progress Note for:: 11/02/18 Reason For Visit: PERIRECTAL ABSCESS, LEUKOCYTOSIS, FEVER Physical Exam Vital Signs: Temp Pulse Resp BP Pulse Ox 98 F 68 19 94/44 L 93 11/02/18 08:00 11/02/18 08:00 11/02/18 08:00 11/02/18 08:00 11/02/18 08:00 Pulse Oximeter Continuous Start: 11/01/18 19:06 Freq: RTQ4 Status: Active Protocol: Document 11/02/18 07:45 [facility] [place]Rec: 11/02/18 07:56 [facility] [id number] Pulse Oximetry Assessment Oxygen Saturation (92-100) 98 Oxygen Flow Rate (L/min) 2 Oxygen Delivery Method Nasal Cannula Fraction of Inspired Oxygen (FIO2) 28 Equipment Usage Equipment in Use Continuous SpO2 Machine # N 6 Intake & Output 11/01/18 11/02/18 11/03/18 06:59 06:59 06:59 Intake Total 1790 4303 Output Total 1 804 Balance 1789 3499 Weight 77.111 kg 84.3 kg Results Laboratory Results: 11/02/18 06:57 11/02/18 06:57 11/01/18 11/01/18 11/02/18 00:48 19:45 06:57 WBC 10.9 H RBC 2.87 L Hgb 8.7 L Hct 25.7 L MCV 90 MCH 30.4 MCHC 33.9 RDW 15.4 H Plt Count 110 L Sodium 137.2 Potassium 4.8 Chloride 109 H Carbon Dioxide 18 L Anion Gap 10 BUN 41 H Creatinine 1.86 H Est GFR ( Amer) 42 L Est GFR (Non-Af Amer) 34 L Glucose 115 H Calcium 8.5 Urine Color YELLOW Urine Appearance SLIGHTLY-CLOUDY Urine pH 5.0 Ur Specific [place] 1.040 Urine Protein NEGATIVE Urine Glucose (UA) NEGATIVE Urine Ketones NEGATIVE Urine Blood NEGATIVE Urine Nitrite NEGATIVE Ur Leukocyte Esterase NEGATIVE Urine WBC (Auto) 1 Urine RBC (Auto) 1 11/02/18 06:57 WBC RBC Hgb Hct MCV MCH MCHC RDW Plt Count Sodium 139.2 Potassium 4.4 Chloride 112 H Carbon Dioxide 18 L Anion Gap 9 BUN 44 H Creatinine 2.04 H Est GFR ( Amer) 37 L Est GFR (Non-Af Amer) 31 L Glucose 81 Calcium 7.8 L Urine Color Urine Appearance Urine pH Ur Specific [place] Urine Protein Urine Glucose (UA) Urine Ketones Urine Blood Urine Nitrite Ur Leukocyte Esterase Urine WBC (Auto) Urine RBC (Auto) 10/31/18 10:23 Troponin I 0.056 Impressions: Head CT 10/31/18 10:21 IMPRESSION: MILD CHRONIC CHANGES OF ATROPHY AND MICROVASCULAR ISCHEMIA. NO ACUTE PROCESS. EVIDENCE OF ACUTE STROKE: NO. Chest X-Ray 10/31/18 11:31 IMPRESSION: NO ACUTE FINDINGS. Pelvis CT 11/01/18 00:00 IMPRESSION: There are inflammatory changes in the medial left thigh and perineum. No abscess is seen. There is diverticulosis coli. Assessment & Plan - Diagnosis (1) Cutaneous abscess of perineum Is this a current diagnosis for this admission?: Yes - Plan Summary Plan Summary: 88-year-old male status post incision and drainage of a left groin/perineal abscess. The packing was removed by me today. The [place] drains remain in place. There is very little induration, erythema, or purulent drainage. Leave [place] drains in place for now. Dry dressing twice daily and as needed. Out of bed as tolerated. Okay to shower. Continue antibiotics.
[2018-11-03] MEDS: ACETAMINOPHEN 325 MG TABLET PO SCH ×4 (02:49→22:35)
[2018-11-03] MEDS: PANTOPRAZOLE SODIUM 40 MG TABLET.DR PO SCH (05:55)
[2018-11-03] MEDS: HEPARIN SOD (PORCINE) 5,000 UNIT/ML 1 ML VIAL SUBCUT SCH ×3 (05:55→22:36)
[2018-11-03] MEDS: PIPERACILLIN SODIUM/TAZOBACTAM 2.25 GM in NORMAL SALINE 50 ML IV SCH (05:55)
[2018-11-03 07:02] LABS: HEMATOCRIT 27.6 % (37.9-51.0); HEMOGLOBIN 9.5 g/dL (13.5-17.0); MEAN CORPUSCULAR HEMOGLOBIN 30.3 pg (27.0-33.4); MEAN CORPUSCULAR HGB CONC 34.4 g/dL (32.0-36.0); MEAN CORPUSCULAR VOLUME 88 fl (80-97); PLATELET COUNT 134 10^3/uL (150-450); RED BLOOD COUNT 3.13 10^6/uL (4.35-5.55); RED CELL DISTRIBUTION WIDTH 15.9 % (11.5-14.0); WHITE BLOOD COUNT 9.4 10^3/uL (4.0-10.5)
[2018-11-03 07:30] LABS: ALBUMIN 2.5 g/dL (3.5-5.0); ALKALINE PHOSPHATASE 42 U/L (38-126); ANION GAP 8 (5-19); ASPARTATE AMINO TRANSFERASE 11 U/L (17-59); BILIRUBIN,DIRECT 0.3 mg/dL (0.0-0.4); BILIRUBIN,TOTAL 0.3 mg/dL (0.2-1.3); BLOOD UREA NITROGEN 47 mg/dL (7-20); CALCIUM 8.2 mg/dL (8.4-10.2); CARBON DIOXIDE 17 mmol/L (22-30); CHLORIDE 115 mmol/L (98-107); GLUCOSE 91 mg/dL (75-110); POTASSIUM 4.3 mmol/L (3.6-5.0)
[2018-11-03] MEDS ORDERED: NORMAL SALINE 1000 ML 1,000 ML IV PRN (07:43)
[2018-11-03] MEDS: IPRATROPIUM/ALBUTEROL 0.5-2.5 MG/3 ML AMPUL NEB SCH ×2 (07:51→16:32)
[2018-11-03] MEDS: DOCUSATE SODIUM 100 MG/10 ML UDC PO SCH ×2 (09:22→17:19)
[2018-11-03] MEDS: RANOLAZINE 500 MG TAB.SR.12H PO SCH ×2 (09:26→22:35)
[2018-11-03] MEDS: ASPIRIN 81 MG TABLET, ENT COATED PO SCH (09:26)
[2018-11-03] MEDS: FINASTERIDE 5 MG TABLET PO SCH (09:26)
[2018-11-03] MEDS: CLOPIDOGREL BISULFATE 75 MG TABLET PO SCH (09:27)
[2018-11-03] MEDS: ATORVASTATIN CALCIUM 20 MG TABLET PO SCH (09:27)
--- NOTE | 2018-11-03 09:37 | PDOC PROGRESS REPORT ---
Subjective Progress Note for:: 11/03/18 Subjective:: 88 year old male with a past medical history of recent [place] (5 stents), HTN, HLD, COPD, remote CVA, Hypothyroidism, BPH, GERD, and dementia who was admitted 10/31/18 for increased confusion, generalized weakness and falls. Patient was seen on morning rounds. He was found resting in bed comfortably on room air. He is orientated to self and hospital, but otherwise pleasantly confused. He is socially appropriate, conversational, and follows directions. He denies all complaints at this time; no fever, body aches, chest pain, difficulty breathing, abdominal pain, nausea or vomiting. He does confirm perineal discomfort; noted to have abscess to his right perineum. ROS is somewhat limited secondary to baseline mental status. He does appear to be comfortable and not in any acute distress at this time. No concerns per nursing. 11/02/[id number]-hemz-old male with multiple medical problems including coronary artery disease with STEMI, hypertension, hyperlipidemia, COPD, remote CVA, BPH, gastroesophageal reflux disease, dementia admitted for increased confusion generalized weakness and falls. Patient found to have an abscess or perirectal abscess status post I/D was done yesterday. He was hypotensive this morning blood pressure is 94/44 despite being on IV fluids 125 cc/h. Plan is to stop lisinopril, spironolactone, Coreg for today. And creatinine is also worsened to 2.04. His baseline creatinine is around 1.7. Patient is comfortably in the bed communicating okay not confused not agitated. 11/03/[id number]-ryra-old male admitted for perianal abscess status post incision and drainage was done. The cultures from the incision site is pending. Patient is afebrile and blood pressures are running low latest blood pressure is 107/50. WBC count is normal. Patient's creatinine went up to 2.47 despite receiving IV fluids at 125 cc/h. Plan is to increase the fluids to 200 cc/h. Yesterday patient's lisinopril spironolactone and Coreg was on placed on hold. Patient is on IV zosyn at this time. Reason For Visit: PERIRECTAL ABSCESS, LEUKOCYTOSIS, FEVER Physical Exam Vital Signs: Temp Pulse Resp BP Pulse Ox 97.9 F 79 24 H 107/44 L 92 11/03/18 08:03 11/03/18 08:03 11/03/18 08:03 11/03/18 08:03 11/03/18 08:03 Pulse Oximeter Continuous Start: 11/01/18 19:06 Freq: RTQ4 Status: Complete Protocol: Document 11/03/18 08:02 [facility] (Rec: 11/03/18 08:02 [facility] [id number]) Pulse Oximetry Assessment Equipment Usage Equipment Discontinued Continuous SpO2 Machine # N 6 Additional RT Notes Other dc per building repair maintenance supervisor & Output 11/02/18 11/03/18 11/04/18 06:59 06:59 06:59 Intake Total 4303 2340 Output Total 804 1150 Balance 3499 1190 Weight 84.3 kg General appearance: PRESENT: no acute distress, cooperative, other - More alert more awake communicating better and participating with physical therapy this morning. Head exam: PRESENT: atraumatic Eye exam: PRESENT: PERRLA Mouth exam: PRESENT: moist, tongue midline Teeth exam: PRESENT: poor dentation Neck exam: ABSENT: carotid bruit, JVD, lymphadenopathy, thyromegaly Respiratory exam: PRESENT: decreased breath sounds Cardiovascular exam: PRESENT: RRR. ABSENT: diastolic murmur, rubs, systolic murmur GI/Abdominal exam: PRESENT: normal bowel sounds, soft. ABSENT: distended, guarding, mass, organolmegaly, rebound, tenderness Rectal exam: PRESENT: deferred Gentrourinary exam: PRESENT: indwelling catheter Extremities exam: PRESENT: full ROM. ABSENT: calf tenderness, clubbing, pedal edema Neurological exam: PRESENT: alert, awake, oriented to person, oriented to place, oriented to time, oriented to situation, CN II-XII grossly intact. ABSENT: motor sensory deficit Psychiatric exam: PRESENT: appropriate affect, normal mood. ABSENT: homicidal ideation, suicidal ideation Results Laboratory Results: 11/03/18 06:30 11/03/18 06:30 11/03/18 11/03/18 06:30 06:30 WBC 9.4 RBC 3.13 L Hgb 9.5 L Hct 27.6 L MCV 88 MCH 30.3 MCHC 34.4 RDW 15.9 H Plt Count 134 L Sodium 140.0 Potassium 4.3 Chloride 115 H Carbon Dioxide 17 L Anion Gap 8 BUN 47 H Creatinine 2.47 H Est GFR ( Amer) 30 L Est GFR (Non-Af Amer) 25 L Glucose 91 Calcium 8.2 L Magnesium 2.1 Total Bilirubin 0.3 AST 11 L Alkaline Phosphatase 42 Total Protein 5.0 L Albumin 2.5 L 10/31/18 10:23 Troponin I 0.056 Impressions: Head CT 10/31/18 10:21 IMPRESSION: MILD CHRONIC CHANGES OF ATROPHY AND MICROVASCULAR ISCHEMIA. NO ACUTE PROCESS. EVIDENCE OF ACUTE STROKE: NO. Chest X-Ray 10/31/18 11:31 IMPRESSION: NO ACUTE FINDINGS. Pelvis CT 11/01/18 00:00 IMPRESSION: There are inflammatory changes in the medial left thigh and perineum. No abscess is seen. There is diverticulosis coli. Assessment and Plan - Diagnosis (1) Abscess of multiple sites of perineum Is this a current diagnosis for this admission?: Yes Plan: Sacral decubitus ulcer and abscesses noted during hygiene care today. CT of pelvis with contrast revealed inflammatory changes to the medial left thigh and perineum; no abscesses notified. Blood cultures pending Surgery was consulted; appreciate Dr. Chavez's evaluation and assistance. Possible surgical debridement this afternoon. Currently in n.p.o. status. Antibiotics changed to IV Zosyn. 11/02/2018-patient admitted with perirectal abscess status post I&D was done yesterday. Patient is presently on IV Zosyn. Cultures are negative so far. WBC count came down to 10,900. Plan is to continue the present management. 11/03/2018-patient admitted with perineal abscess status post incision and drainage was done 2 days ago. Presently on IV Zosyn. WBC count today is 9400 improved. Cultures from the wound site are pending. (2) Leukocytosis Is this a current diagnosis for this admission?: Yes Plan: Decreased from 17.9-15.2. Patient was nearly initially placed on azithromycin and Rocephin for treatment of CAP as there was no other definitive source of infection identified. H owever, CXR was clear. Patient now found to have a sacral decubitus ulcer with possible abscess form ation to his right perineum. Blood cultures pending. Antibiotics as above. 11/02/2018-WBC count came down to normal 10,900. Patient is afebrile. But hypotensive. Plan is to continue IV fluids normal saline at 125 cc/h and blood pressure medications are on hold. Status post I&D was done yesterday. Hopefully surgery is continue to follow the patient on regular basis. 11/03/2018-WBC count is 9400 today normal. Plan is to continue IV Zosyn until culture reports are available. (3) Chronic kidney disease Qualifiers: Chronic kidney disease stage: stage 3 (moderate) Qualified Code(s): N18.3 - Chronic kidney disease, stage 3 (moderate) Is this a current diagnosis for this admission?: Yes Plan: Stable; baseline creatinine of 1.73. Avoid nephrotoxic medications as able. Monitor daily chemistry. 11/02/2018-patient's baseline creatinine is around 1.7 it was worsened to 2.04 today. Plan is to continue IV fluids at 125 cc/h and hold lisinopril, spironolactone and Coreg for today because the blood pressure is 94/44. plan Is to repeat the labs tomorrow. 11/03 2018-patient's baseline creatinine is 1.7 despite receiving IV fluids at 125 cc/h creatinine went up to 2.47. It may be due to zosyn. Plan is to discontinue Zosyn and increase the fluids to 200 cc/h and to start on IV Rocephin and IV clindamycin. (4) Hypertension Qualifiers: Hypertension type: essential hypertension Qualified Code(s): I10 - Essential (primary) hypertension Is this a current diagnosis for this admission?: Yes Plan: Continue home medication regiment of Carvedilol, spironolactone, lisinopril. 11/02/2018-patient blood pressure today is 94/44 despite being on IV fluids 125 cc/h plan is to hold Coreg, spironolactone and lisinopril for today. 11/03/2018-latest blood pressure is 107/50 blood pressure medications are on hold. plan is to increase fluids to 200 cc/h today. To watch for the fluid overload. (5) CAD (coronary artery disease) Qualifiers: Coronary Disease-Associated Artery/Lesion type: unspecified vessel or lesion type Associated angina: without angina Is this a current diagnosis for this admission?: Yes (6) CAP (community acquired pneumonia) Qualifiers: Laterality: right Lung location: unspecified part of lung Qualified Code(s): J18.9 - Pneumonia, unspecified organism Is this a current diagnosis for this admission?: Yes Plan: Ruled out; Afebrile, scant rhonchi on exam, though CXR clear and maintaining oxygen saturations on room air. Patient and report recent productive cough. Supplemental oxygen as needed. As needed nebulizer treatments. Encourage pulmonary toilet. 11/02/2018-chest x-ray was negative and pulse oxes within normal range at 98% on 2 L community-acquired pneumonia is ruled out. 11/03/2018-patient's pulse ox today is 95% on room air. Plan is to continue the present management. - Time Time Spent with patient: 25-34 minutes Medications reviewed and adjusted accordingly: Yes Anticipated discharge: Home with Homehealth
[2018-11-03] MEDS: CEFTRIAXONE 2 GM/D5W RTU 2 GM/50 ML RTUPB IV SCH (10:13)
--- NOTE | 2018-11-03 10:42 | PDOC PROGRESS REPORT ---
Subjective Progress Note for:: 11/03/18 Subjective:: comfortable Reason For Visit: PERIRECTAL ABSCESS, LEUKOCYTOSIS, FEVER Physical Exam Vital Signs: Temp Pulse Resp BP Pulse Ox 97.9 F 79 24 H 107/44 L 92 11/03/18 08:03 11/03/18 08:03 11/03/18 08:03 11/03/18 08:03 11/03/18 08:03 Pulse Oximeter Continuous Start: 11/01/18 19:06 Freq: RTQ4 Status: Complete Protocol: Document 11/03/18 08:02 [facility] [place] (Rec: 11/03/18 08:02 [facility] [place] [id number]) Pulse Oximetry Assessment Equipment Usage Equipment Discontinued Continuous SpO2 Machine # N 6 Additional RT Notes Other dc per engineering surveyor & Output 11/02/18 11/03/18 11/04/18 06:59 06:59 06:59 Intake Total 4303 2340 1050 Output Total 804 1150 Balance 3499 1190 1050 Weight 84.3 kg Gentrourinary exam: PRESENT: other - left upper inner thigh and groin: abscess site soft, no cellulitis, [place] drains in place Results Laboratory Results: 11/03/18 06:30 11/03/18 06:30 11/03/18 11/03/18 06:30 06:30 WBC 9.4 RBC 3.13 L Hgb 9.5 L Hct 27.6 L MCV 88 MCH 30.3 MCHC 34.4 RDW 15.9 H Plt Count 134 L Sodium 140.0 Potassium 4.3 Chloride 115 H Carbon Dioxide 17 L Anion Gap 8 BUN 47 H Creatinine 2.47 H Est GFR ( Amer) 30 L Est GFR (Non-Af Amer) 25 L Glucose 91 Calcium 8.2 L Magnesium 2.1 Total Bilirubin 0.3 AST 11 L Alkaline Phosphatase 42 Total Protein 5.0 L Albumin 2.5 L 10/31/18 10:23 Troponin I 0.056 Impressions: Head CT 10/31/18 10:21 IMPRESSION: MILD CHRONIC CHANGES OF ATROPHY AND MICROVASCULAR ISCHEMIA. NO AC SHEILA PROCESS. EVIDENCE OF ACUTE STROKE: NO. Chest X-Ray 10/31/18 11:31 IMPRESSION: NO ACUTE FINDINGS. Pelvis CT 11/01/18 00:00 IMPRESSION: There are inflammatory changes in the medial left thigh and perineum. No abscess is seen. There is diverticulosis coli. Assessment & Plan - Diagnosis (1) Abscess of multiple sites of perineum Is this a current diagnosis for this admission?: Yes (2) Leukocytosis Is this a current diagnosis for this admission?: Yes - Plan Summary Plan Summary: A/ POD#2 after I&D left upper inner thigh and groin abscess I&D area clean [place] drains in place No evidence of cellulitis P/ BID irrigation of 30 mL NS though each skin opening BID x 3 weeks Return to Surgery clinic in 3 weeks Do not remove [place] drains I will sign off, please, call me with questions
[2018-11-03] MEDS: CLINDAMYCIN 600 MG/D5W RTU 600 MG/50 ML RTUPB IV SCH ×2 (13:41→22:35)
--- NOTE | 2018-11-03 18:07 | RADIOLOGY REPORT (SQ) ---
EXAM DESCRIPTION: U/S RETROPERITON (RENAL/AORTA) COMPLETED DATE/TIME: 11/03/2018 5:14 pm REASON FOR STUDY: fani K61.1 RECTAL ABSCESS COMPARISON: CT pelvis 11/01/2018 CT abdomen pelvis 05/22/2018 CT angio chest 10/09/2017 TECHNIQUE: Dynamic and static grayscale images acquired of the kidneys and bladder and recorded on P ACS. Additional selected color Doppler and spectral images recorded. LIMITATIONS: None. FINDINGS: RIGHT KIDNEY: Right kidney is 12 cm in length with multiple 1 cm hemorrhagic cysts along t he upper pole and midpole right kidney, stable compared to CT abdomen pelvis 05/22/2018. There is a 5 cm right parapelvic cyst unchanged from prior studies. No collecting system stones. No hydronephros is. Mild cortical thinning with increased echogenicity, age-appropriate. LEFT KIDNEY: Left kidney is 10 cm in length with multiple simple cyst along the mid and lower pole, the largest is 4 cm left mid pole kidney. No stones. No hydronephrosis. Mild cortical thinning wit h increased echogenicity, age-appropriate. BLADDER: Decompressed by Wallace catheter, not well seen OTHER FINDINGS: Stones in the gallbladder, without gallbladder wall thickening. IMPRESSION: Multiple bilateral renal cysts Age-appropriate cortical thinning and increased echogenicity both kidneys. No hydronephrosis Wallace catheter decompresses the bladder TECHNICAL DOCUMENTATION: JOB ID: [id number]- All Rights Reserved Reading location - IP/workstation name: [id number]
[2018-11-03] MEDS ORDERED: FUROSEMIDE INJ/PF 20 MG/2 ML SDV ONE (18:40)
[2018-11-03] MEDS ORDERED: FUROSEMIDE INJ/PF 20 MG/2 ML SDV IV ONE (19:00)
[2018-11-04] MEDS: IPRATROPIUM/ALBUTEROL 0.5-2.5 MG/3 ML AMPUL NEB SCH ×3 (00:38→15:43)
[2018-11-04] MEDS: ACETAMINOPHEN 325 MG TABLET PO SCH ×4 (04:07→21:39)
[2018-11-04 04:58] LABS: ABSOLUTE EOSINOPHILS # (AUTO) 0.5 10^3/uL (0.0-0.6); ABSOLUTE LYMPHOCYTES (AUTO) 0.8 10^3/uL (0.5-4.7); ABSOLUTE MONOCYTES (AUTO) 0.7 10^3/uL (0.1-1.4); ABSOLUTE NEUT (AUTO) 5.9 10^3/uL (1.7-8.2); BASOPHILS % (AUTO) 0.6 % (0-2); EOSINOPHILS % (AUTO) 6.4 % (0-6); HEMATOCRIT 29.4 % (37.9-51.0); HEMOGLOBIN 9.9 g/dL (13.5-17.0); MEAN CORPUSCULAR HGB CONC 33.8 g/dL (32.0-36.0); MEAN CORPUSCULAR VOLUME 89 fl (80-97); MONOCYTES % (AUTO) 8.2 % (3-13); PLATELET COUNT 167 10^3/uL (150-450); RED BLOOD COUNT 3.31 10^6/uL (4.35-5.55); RED CELL DISTRIBUTION WIDTH 15.9 % (11.5-14.0); SEGMENTED NEUTROPHILS % (AUTO) 74.8 % (42-78); TOTAL CELLS COUNTED % (AUTO) 100 %; WHITE BLOOD COUNT 7.9 10^3/uL (4.0-10.5)
[2018-11-04 05:22] LABS: ALBUMIN 2.5 g/dL (3.5-5.0); ALKALINE PHOSPHATASE 45 U/L (38-126); ANION GAP 10 (5-19); ASPARTATE AMINO TRANSFERASE 11 U/L (17-59); BILIRUBIN,DIRECT 0.3 mg/dL (0.0-0.4); BILIRUBIN,TOTAL 0.3 mg/dL (0.2-1.3); BLOOD UREA NITROGEN 42 mg/dL (7-20); CALCIUM 8.3 mg/dL (8.4-10.2); CARBON DIOXIDE 17 mmol/L (22-30); CHLORIDE 115 mmol/L (98-107); GLUCOSE 86 mg/dL (75-110); POTASSIUM 4.1 mmol/L (3.6-5.0); TOTAL PROTEIN 5.2 g/dL (6.3-8.2)
[2018-11-04 05:27] LABS: APPEARANCE,URINE CLEAR; BILIRUBIN,URINE NEGATIVE (NEGATIVE); COLOR,URINE YELLOW; GLUCOSE, URINE NEGATIVE (NEGATIVE); KETONES,URINE NEGATIVE (NEGATIVE); LEUKOCYTE ESTERASE,URINE NEGATIVE (NEGATIVE); NITRITE,URINE NEGATIVE (NEGATIVE); PROTEIN,URINE NEGATIVE (NEGATIVE); URINE SPECIFIC GRAVITY 1.016; UROBILINOGEN,URINE NEGATIVE mg/dL (<2.0)
[2018-11-04] MEDS: HEPARIN SOD (PORCINE) 5,000 UNIT/ML 1 ML VIAL SUBCUT SCH ×3 (05:53→21:40)
[2018-11-04] MEDS: PANTOPRAZOLE SODIUM 40 MG TABLET.DR PO SCH (05:56)
[2018-11-04] MEDS: CLINDAMYCIN 600 MG/D5W RTU 600 MG/50 ML RTUPB IV SCH ×3 (05:56→21:39)
[2018-11-04] MEDS: FINASTERIDE 5 MG TABLET PO SCH (09:25)
[2018-11-04] MEDS: RANOLAZINE 500 MG TAB.SR.12H PO SCH ×2 (09:25→21:40)
[2018-11-04] MEDS: ASPIRIN 81 MG TABLET, ENT COATED PO SCH (09:25)
[2018-11-04] MEDS: CEFTRIAXONE 2 GM/D5W RTU 2 GM/50 ML RTUPB IV SCH (09:25)
[2018-11-04] MEDS: DOCUSATE SODIUM 100 MG/10 ML UDC PO SCH ×2 (09:25→17:10)
[2018-11-04] MEDS: ATORVASTATIN CALCIUM 20 MG TABLET PO SCH (09:25)
[2018-11-04] MEDS: CLOPIDOGREL BISULFATE 75 MG TABLET PO SCH (09:25)
--- NOTE | 2018-11-04 09:42 | PDOC PROGRESS REPORT ---
Subjective Progress Note for:: 11/04/18 Subjective:: 88 year old male with a past medical history of recent [place] (5 stents), HTN, HLD, COPD, remote CVA, Hypothyroidism, BPH, GERD, and dementia who was admitted 10/31/18 for increased confusion, generalized weakness and falls. Patient was seen on morning rounds. He was found resting in bed comfortably on room air. He is orientated to self and hospital, but otherwise pleasantly confused. He is socially appropriate, conversational, and follows directions. He denies all complaints at this time; no fever, body aches, chest pain, difficulty breathing, abdominal pain, nausea or vomiting. He does confirm perineal discomfort; noted to have abscess to his right perineum. ROS is somewhat limited secondary to baseline mental status. He does appear to be comfortable and not in any acute distress at this time. No concerns per nursing. 11/02/[id number]-ywhx-old male with multiple medical problems including coronary artery disease with STEMI, hypertension, hyperlipidemia, COPD, remote CVA, BPH, gastroesophageal reflux disease, dementia admitted for increased confusion generalized weakness and falls. Patient found to have an abscess or perirectal abscess status post I/D was done yesterday. He was hypotensive this morning blood pressure is 94/44 despite being on IV fluids 125 cc/h. Plan is to stop lisinopril, spironolactone, Coreg for today. And creatinine is also worsened to 2.04. His baseline creatinine is around 1.7. Patient is comfortably in the bed communicating okay not confused not agitated. 11/03/[id number]-idlo-old male admitted for perianal abscess status post incision and drainage was done. The cultures from the incision site is pending. Patient is afebrile and blood pressures are running low latest blood pressure is 107/50. WBC count is normal. Patient's creatinine went up to 2.47 despite receiving IV fluids at 125 cc/h. Plan is to increase the fluids to 200 cc/h. Yesterday patient's lisinopril spironolactone and Coreg was on placed on hold. Patient is on IV zosyn at this time. 11/04-year-old male admitted with perineal abscess status post incision and drainage. Cultures came back positive for gram-negative rods and gram- positive cocci. Presently on IV ceftriaxone and clindamycin. Afebrile. Surgery signed off. Yesterday with IV fluids he was more short of breath and scrotal edema was noticed. IV fluids are discontinued and he was given a Lasix of 20 mg IV 1 dose. Patient is comfortably sleeping in the bed pulse ox is 94% on room air. Urinary output is 1200 mL. Edema was resolved. But the creatinine is continued to rise it was 2.6 today. Renal ultrasound was negative for acute pathology. Reason For Visit: PERIRECTAL ABSCESS, LEUKOCYTOSIS, FEVER Physical Exam Vital Signs: Temp Pulse Resp BP Pulse Ox 97.6 F 81 16 118/51 L 93 11/03/18 15:29 11/04/18 07:34 11/04/18 07:34 11/03/18 15:29 11/04/18 07:34 Pulse Oximeter Continuous Start: 11/01/18 19:06 Freq: RTQ4 Status: Complete Protocol: Document 11/03/18 08:02 [facility] [place]Rec: 11/03/18 08:02 [facility] [id number] Pulse Oximetry Assessment Equipment Usage Equipment Discontinued Continuous SpO2 Machine # [id number] Additional RT Notes Other dc per associate financial representative & Output 11/03/18 11/04/18 11/05/18 06:59 06:59 06:59 Intake Total 2340 2926 50 Output Total 1150 1200 Balance 1190 1726 50 Weight 87.8 kg General appearance: PRESENT: no acute distress Head exam: PRESENT: atraumatic Eye exam: PRESENT: PERRLA Mouth exam: PRESENT: moist, tongue midline Teeth exam: PRESENT: poor dentation Neck exam: ABSENT: carotid bruit, JVD, lymphadenopathy, thyromegaly Respiratory exam: PRESENT: decreased breath sounds Cardiovascular exam: PRESENT: RRR. ABSENT: diastolic murmur, rubs, systolic murmur Pulses: PRESENT: normal dorsalis pedis pul GI/Abdominal exam: PRESENT: normal bowel sounds, soft. ABSENT: distended, guarding, mass, organolmegaly, rebound, tenderness Rectal exam: PRESENT: deferred Extremities exam: PRESENT: full ROM. ABSENT: calf tenderness, clubbing, pedal edema Neurological exam: PRESENT: alert Results Laboratory Results: 11/04/18 03:29 11/04/18 03:29 08/22/19 08/22/19 08/22/19 03:29 03:29 04:40 WBC 7.9 RBC 3.31 L Hgb 9.9 L Hct 29.4 L MCV 89 MCH 30.0 MCHC 33.8 RDW 15.9 H Plt Count 167 Seg Neutrophils % 74.8 Sodium 141.6 Potassium 4.1 Chloride 115 H Carbon Dioxide 17 L Anion Gap 10 BUN 42 H Creatinine 2.61 H Est GFR ( Amer) 28 L Glucose 86 Calcium 8.3 L Magnesium 2.1 Total Bilirubin 0.3 AST 11 L Alkaline Phosphatase 45 Total Protein 5.2 L Albumin 2.5 L Urine Color YELLOW Urine Appearance CLEAR Urine pH 5.0 Ur Specific [place] 1.016 Urine Protein NEGATIVE Urine Glucose (UA) NEGATIVE Urine Ketones NEGATIVE Urine Blood LARGE H Urine Nitrite NEGATIVE Ur Leukocyte Esterase NEGATIVE Urine WBC (Auto) 4 Urine RBC (Auto) >182 10/31/18 10:23 Troponin I 0.056 Impressions: Head CT 10/31/18 10:21 IMPRESSION: MILD CHRONIC CHANGES OF ATROPHY AND MICROVASCULAR ISCHEMIA. NO ACUTE PROCESS. EVIDENCE OF ACUTE STROKE: NO. Chest X-Ray 10/31/18 11:31 IMPRESSION: NO ACUTE FINDINGS. Pelvis CT 11/01/18 00:00 IMPRESSION: There are inflammatory changes in the medial left thigh and perineum. No abscess is seen. There is diverticulosis coli. Renal Ultrasound 11/03/18 00:00 IMPRESSION: Multiple bilateral renal cysts Age-appropriate cortical thinning and increased echogenicity both kidneys. No hydronephrosis Wallace catheter decompresses the bladder Assessment and Plan - Diagnosis (1) Abscess of multiple sites of perineum Is this a current diagnosis for this admission?: Yes Plan: Sacral decubitus ulcer and abscesses noted during hygiene care today. CT of pelvis with contrast revealed inflammatory changes to the medial left thigh and perineum; no abscesses notified. Blood cultures pending Surgery was consulted; appreciate Dr. Chavez's evaluation and assistance. Possible surgical debridement this afternoon. Currently in n.p.o. status. Antibiotics changed to IV Zosyn. 11/02/2018-patient admitted with perirectal abscess status post I&D was done yesterday. Patient is presently on IV Zosyn. Cultures are negative so far. WBC count came down to 10,900. Plan is to continue the present management. 11/03/2018-patient admitted with perineal abscess status post incision and drainage was done 2 days ago. Presently on IV Zosyn. WBC count today is 9400 improved. Cultures from the wound site are pending. 11/04/2018-patient admitted with abscesses in multiple places of the perineum status post incision and drainage was done wound cultures were positive for gram-negative rods and gram-positive cocci. Presently on IV ceftriaxone and clindamycin. Afebrile. (2) Leukocytosis Is this a current diagnosis for this admission?: Yes Plan: Decreased from 17.9-15.2. Patient was nearly initially placed on azithromycin and Rocephin for treatment of CAP as there was no other definitive source of infection identified. However, CXR was clear. Patient now found to have a sacral decubitus ulcer with possible abscess f ormation to his right perineum. Blood cultures pending. Antibiotics as above. 11/02/2018-WBC count came down to normal 10,900. Patient is afebrile. But hypotensive. Plan is to continue IV fluids normal saline at 125 cc/h and blood pressure medications are on hold. Status post I&D was done yesterday. Hopefully surgery is continue to follow the patient on regular basis. 11/03/2018-WBC count is 9400 today normal. Plan is to continue IV Zosyn until culture reports are available. 2018-WBC count today is 7900 within normal range. Leukocytosis is resolved. (3) Chronic kidney disease Qualifiers: Chronic kidney disease stage: stage 3 (moderate) Qualified Code(s): N18.3 - Chronic kidney disease, stage 3 (moderate) Is this a current diagnosis for this admission?: Yes Plan: Stable; baseline creatinine of 1.73. Avoid nephrotoxic medications as able. Monitor daily chemistry. 11/02/2018-patient's baseline creatinine is around 1.7 it was worsened to 2.04 today. Plan is to continue IV fluids at 125 cc/h and hold lisinopril, spironolactone and Coreg for today because the blood pressure is 94/44. plan Is to repeat the labs tomorrow. 11/03 2018-patient's baseline creatinine is 1.7 despite receiving IV fluids at 125 cc/h creatinine went up to 2.47. It may be due to zosyn. Plan is to discontinue Zosyn and increase the fluids to 200 cc/h and to start on IV Rocephin and IV clindamycin. 11/04/2018-patient creatinine today is 2.6 continue to rise. Yesterday IV fluids are discontinued because patient is getting short of breath and a scrotal edema was noticed. IV fluids are discontinued he was given a Lasix 20 mg IV 1 dose edema was resolved urinary output is very good today. Renal ultrasound was negative. Plan is to continue to closely monitor his renal function. (4) Hypertension Qualifiers: Hypertension type: essential hypertension Qualified Code(s): I10 - Essential (primary) hypertension Is this a current diagnosis for this admission?: Yes Plan: Continue home medication regiment of Carvedilol, spironolactone, lisinopril. 11/02/2018-patient blood pressure today is 94/44 despite being on IV fluids 125 cc/h plan is to hold Coreg, spironolactone and lisinopril for today. 11/03/2018-latest blood pressure is 107/50 blood pressure medications are on hold. plan is to increase fluids to 200 cc/h today. To watch for the fluid overload. 11/04/2018-blood pressure today is 118/50 antihypertensives are still on hold. (5) CAD (coronary artery disease) Qualifiers: Coronary Disease-Associated Artery/Lesion type: unspecified vessel or lesion type Associated angina: without angina Is this a current diagnosis for this admission?: Yes (6) CAP (community acquired pneumonia) Qualifiers: Laterality: right Lung location: unspecified part of lung Qualified Code(s): J18.9 - Pneumonia, unspecified organism Is this a current diagnosis for this admission?: Yes Plan: Ruled out; Afebrile, scant rhonchi on exam, though CXR clear and maintaining oxygen saturations on room air. Patient and report recent productive cough. Supplemental oxygen as needed. As needed nebulizer treatments. Encourage pulmonary toilet. 11/02/2018-chest x-ray was negative and pulse oxes within normal range at 98% on 2 L community-acquired pneumonia is ruled out. 11/03/2018-patient's pulse ox today is 95% on room air. Plan is to continue the present management. 11/04/2018-patient pulse ox is 94% on room air comfortably sleeping in the bed not will start working not in distress. - Time Time Spent with patient: 25-34 minutes Medications reviewed and adjusted accordingly: Yes Anticipated discharge: Home
[2018-11-05] MEDS: IPRATROPIUM/ALBUTEROL 0.5-2.5 MG/3 ML AMPUL NEB SCH ×3 (00:25→16:09)
[2018-11-05 05:14] LABS: ABSOLUTE BASOPHILS # (AUTO) 0.1 10^3/uL (0.0-0.2); ABSOLUTE EOSINOPHILS # (AUTO) 0.5 10^3/uL (0.0-0.6); ABSOLUTE LYMPHOCYTES (AUTO) 0.9 10^3/uL (0.5-4.7); ABSOLUTE MONOCYTES (AUTO) 0.6 10^3/uL (0.1-1.4); ABSOLUTE NEUT (AUTO) 5.9 10^3/uL (1.7-8.2); BASOPHILS % (AUTO) 0.7 % (0-2); EOSINOPHILS % (AUTO) 6.2 % (0-6); HEMATOCRIT 30.9 % (37.9-51.0); HEMOGLOBIN 10.4 g/dL (13.5-17.0); LYMPHOCYTES % (AUTO) 11.7 % (13-45); MEAN CORPUSCULAR HEMOGLOBIN 29.6 pg (27.0-33.4); MEAN CORPUSCULAR HGB CONC 33.8 g/dL (32.0-36.0); MEAN CORPUSCULAR VOLUME 88 fl (80-97); MONOCYTES % (AUTO) 7.7 % (3-13); PLATELET COUNT 194 10^3/uL (150-450); RED BLOOD COUNT 3.53 10^6/uL (4.35-5.55); RED CELL DISTRIBUTION WIDTH 15.5 % (11.5-14.0); SEGMENTED NEUTROPHILS % (AUTO) 73.7 % (42-78); TOTAL CELLS COUNTED % (AUTO) 100 %
[2018-11-05 05:25] LABS: ALBUMIN 2.7 g/dL (3.5-5.0); ALKALINE PHOSPHATASE 48 U/L (38-126); ANION GAP 9 (5-19); ASPARTATE AMINO TRANSFERASE 14 U/L (17-59); BILIRUBIN,DIRECT 0.2 mg/dL (0.0-0.4); BILIRUBIN,TOTAL 0.2 mg/dL (0.2-1.3); BLOOD UREA NITROGEN 36 mg/dL (7-20); CALCIUM 8.3 mg/dL (8.4-10.2); CARBON DIOXIDE 18 mmol/L (22-30); CHLORIDE 113 mmol/L (98-107); GLUCOSE 77 mg/dL (75-110); POTASSIUM 4.1 mmol/L (3.6-5.0); TOTAL PROTEIN 5.2 g/dL (6.3-8.2)
[2018-11-05] MEDS: ACETAMINOPHEN 325 MG TABLET PO SCH ×4 (05:30→21:02)
[2018-11-05] MEDS: HEPARIN SOD (PORCINE) 5,000 UNIT/ML 1 ML VIAL SUBCUT SCH ×3 (05:33→21:07)
[2018-11-05] MEDS: PANTOPRAZOLE SODIUM 40 MG TABLET.DR PO SCH (05:34)
[2018-11-05] MEDS: CLINDAMYCIN 600 MG/D5W RTU 600 MG/50 ML RTUPB IV SCH ×3 (05:34→21:02)
--- NOTE | 2018-11-05 08:34 | PDOC PROGRESS REPORT ---
Subjective Progress Note for:: 11/05/18 Subjective:: 88 year old male with a past medical history of recent WI (5 stents), HTN, HLD, COPD, remote CVA, Hypothyroidism, BPH, GERD, and dementia who was admitted 10/31/18 for increased confusion, generalized weakness and falls. Patient was seen on morning rounds. He was found resting in bed comfortably on room air. He is orientated to self and hospital, but otherwise pleasantly confused. He is socially appropriate, conversational, and follows directions. He denies all complaints at this time; no fever, body aches, chest pain, difficulty breathing, abdominal pain, nausea or vomiting. He does confirm perineal discomfort; noted to have abscess to his right perineum. ROS is somewhat limited secondary to baseline mental status. He does appear to be comfortable and not in any acute distress at this time. No concerns per nursing. 11/02/[id number]-bnxc-old male with multiple medical problems including coronary artery disease with STEMI, hypertension, hyperlipidemia, COPD, remote CVA, BPH, gastroesophageal reflux disease, dementia admitted for increased confusion generalized weakness and falls. Patient found to have an abscess or perirectal abscess status post I/D was done yesterday. He was hypotensive this morning blood pressure is 94/44 despite being on IV fluids 125 cc/h. Plan is to stop lisinopril, spironolactone, Coreg for today. And creatinine is also worsened to 2.04. His baseline creatinine is around 1.7. Patient is comfortably in the bed communicating okay not confused not agitated. 11/03/[id number]-untx-old male admitted for perianal abscess status post incision and drainage was done. The cultures from the incision site is pending. Patient is afebrile and blood pressures are running low latest blood pressure is 107/50. WBC count is normal. Patient's creatinine went up to 2.47 despite receiving IV fluids at 125 cc/h. Plan is to increase the fluids to 200 cc/h. Yesterday patient's lisinopril spironolactone and Coreg was on placed on hold. Patient is on IV zosyn at this time. 11/04-year-old male admitted with perineal abscess status post incision and drainage. Cultures came back positive for gram-negative rods and gram- positive cocci. Presently on IV ceftriaxone and clindamycin. Afebrile. Surgery signed off. Yesterday with IV fluids he was more short of breath and scrotal edema was noticed. IV fluids are discontinued and he was given a Lasix of 20 mg IV 1 dose. Patient is comfortably sleeping in the bed pulse ox is 94% on room air. Urinary output is 1200 mL. Edema was resolved. But the creatinine is continued to rise it was 2.6 today. Renal ultrasound was negative for acute pathology. 11/05/[id number]-islw-old male admitted with perineal abscesses status post incision and drainage was done. Cultures are positive for gram-positive cocci. Presently on IV ceftriaxone and clindamycin. Afebrile. WBC count is 8 today. Blood pressure is stable. T-max is 98.5. Pulse ox is 94% on room air. comf ortably in the bed communicating okay not in distress. Reason For Visit: PERIRECTAL ABSCESS, LEUKOCYTOSIS, FEVER Physical Exam Vital Signs: Temp Pulse Resp BP Pulse Ox 98.5 F 80 18 154/69 H 96 11/04/18 23:49 11/05/18 00:27 11/05/18 00:27 11/04/18 23:49 11/05/18 00:27 Pulse Oximeter Continuous Start: 11/01/18 19:06 Freq: RTQ4 Status: Complete Protocol: Document 11/03/18 08:02 [facility] [place] (Rec: 11/03/18 08:02 [facility] [place] [id number]) Pulse Oximetry Assessment Equipment Usage Equipment Discontinued Continuous SpO2 Machine # N [id number] Additional RT Notes Other dc per liner roll changer & Output 11/04/18 11/05/18 11/06/18 06:59 06:59 06:59 Intake Total 2926 920 Output Total 1200 700 Balance 1726 220 Weight 87.8 kg 85.1 kg General appearance: PRESENT: no acute distress Head exam: PRESENT: atraumatic Eye exam: PRESENT: PERRLA Mouth exam: PRESENT: moist, tongue midline Teeth exam: PRESENT: poor dentation Respiratory exam: PRESENT: decreased breath sounds. ABSENT: rales, rhonchi, wheezes Cardiovascular exam: PRESENT: RRR. ABSENT: diastolic murmur, rubs, systolic murmur GI/Abdominal exam: PRESENT: normal bowel sounds, soft. ABSENT: distended, guarding, mass, organolmegaly, rebound, tenderness Rectal exam: PRESENT: deferred Extremities exam: PRESENT: full ROM. ABSENT: calf tenderness, clubbing, pedal edema Neurological exam: PRESENT: alert, awake, oriented to person, oriented to place, oriented to time, oriented to situation, CN II-XII grossly intact. ABSENT: motor sensory deficit Psychiatric exam: PRESENT: appropriate affect, normal mood. ABSENT: homicidal ideation, suicidal ideation Results Laboratory Results: 11/05/18 04:23 11/05/18 04:23 11/05/18 11/05/18 04:23 04:23 WBC 8.0 RBC 3.53 L Hgb 10.4 L Hct 30.9 L MCV 88 MCH 29.6 MCHC 33.8 RDW 15.5 H Plt Count 194 Seg Neutrophils % 73.7 Sodium 140.3 Potassium 4.1 Chloride 113 H Carbon Dioxide 18 L Anion Gap 9 BUN 36 H Creatinine 2.10 H Est GFR ( Amer) 36 L Glucose 77 Calcium 8.3 L Magnesium 2.1 Total Bilirubin 0.2 AST 14 L Alkaline Phosphatase 48 Total Protein 5.2 L Albumin 2.7 L 11/01/18 18:00 Groin - Abscess Gram Stain - Final 10/31/18 10:23 Troponin I 0.056 Impressions: Head CT 10/31/18 10:21 IMPRESSION: MILD CHRONIC CHANGES OF ATROPHY AND MICROVASCULAR ISCHEMIA. NO ACUTE PROCESS. EVIDENCE OF ACUTE STROKE: NO. Chest X-Ray 10/31/18 11:31 IMPRESSION: NO ACUTE FINDINGS. Pelvis CT 11/01/18 00:00 IMPRESSION: There are inflammatory changes in the medial left thigh and perineum. No abscess is seen. There is diverticulosis coli. Renal Ultrasound 11/03/18 00:00 IMPRESSION: Multiple bilateral renal cysts Age-appropriate cortical thinning and increased echogenicity both kidneys. No hydronephrosis Wallace catheter decompresses the bladder Assessment and Plan - Diagnosis (1) Abscess of multiple sites of perineum Is this a current diagnosis for this admission?: Yes Plan: Sacral decubitus ulcer and abscesses noted during hygiene care today. CT of pelvis with contrast revealed inflammatory changes to the medial left thigh and perineum; no abscesses notified. Blood cultures pending Surgery was consulted; appreciate Dr. Chavez's evaluation and assistance. Possible surgical debridement this afternoon. Currently in n.p.o. status. Antibiotics changed to IV Zosyn. 11/02/2018-patient admitted with perirectal abscess status post I&D was done yesterday. Patient is presently on IV Zosyn. Cultures are negative so far. WBC count came down to 10,900. Plan is to continue the present management. 11/03/2018-patient admitted with perineal abscess status post incision and drain age was done 2 days ago. Presently on IV Zosyn. WBC count today is 9400 improved. Cultures from the wound site are pending. 11/04/2018-patient admitted with abscesses in multiple places of the perineum status post incision and drainage was done wound cultures were positive for gram-negative rods and gram-positive cocci. Presently on IV ceftriaxone and clindamycin. Afebrile. 11/05/2018-patient admitted with perineal abscesses status post incision and drainage wound cultures are positive for gram-positive cocci in clusters presently on IV ceftriaxone and clindamycin plan is to continue the present management at this time patient is afebrile wBC count is within normal limits. (2) Leukocytosis Is this a current diagnosis for this admission?: Yes Plan: Decreased from 17.9-15.2. Patient was nearly initially placed on azithromycin and Rocephin for treatment of CAP as there was no other definitive source of infection identified. However, CXR was clear. Patient now found to have a sacral decubitus ulcer with possible abscess formation to his right perineum. Blood cultures pending. Antibiotics as above. 11/02/2018-WBC count came down to normal 10,900. Patient is afebrile. But hypotensive. Plan is to continue IV fluids normal saline at 125 cc/h and blood pressure medications are on hold. Status post I&D was done yesterday. Hopefully surgery is continue to follow the patient on regular basis. 11/03/2018-WBC count is 9400 today normal. Plan is to continue IV Zosyn until culture reports are available. 11/04/2018-WBC count today is 7900 within normal range. Leukocytosis is resolved. 11/05/2018-WBC count is 8000 within normal limits. Patient is afebrile. Leukocytosis secondary to infection resolved. (3) Chronic kidney disease Qualifiers: Chronic kidney disease stage: stage 3 (moderate) Qualified Code(s): N18.3 - Chronic kidney disease, stage 3 (moderate) Is this a current diagnosis for this admission?: Yes Plan: Stable; baseline creatinine of 1.73. Avoid nephrotoxic medications as able. Monitor daily chemistry. 11/02/2018-patient's baseline creatinine is around 1.7 it was worsened to 2.04 today. Plan is to continue IV fluids at 125 cc/h and hold lisinopril, spi ronolactone and Coreg for today because the blood pressure is 94/44. plan Is to repeat the labs tomorrow. 11/03 2018-patient's baseline creatinine is 1.7 despite receiving IV fluids at 125 cc/h creatinine went up to 2.47. It may be due to zosyn. Plan is to discontinue Zosyn and increase the fluids to 200 cc/h and to start on IV Rocephin and IV clindamycin. 11/04/2018-patient creatinine today is 2.6 continue to rise. Yesterday IV fluids are discontinued because patient is getting short of breath and a scrotal edema was noticed. IV fluids are discontinued he was given a Lasix 20 mg IV 1 dose edema was resolved urinary output is very good today. Renal ultrasound was negative. Plan is to continue to closely monitor his renal function. 11/05/2018-patient's creatinine today is 2.1 improved from 2.6 yesterday. Patient is off the IV fluids. Plan is to continue to closely monitor his kidney function. She has baseline creatinine is around 1.7. JASWINDER may be secondary to ATN because of foot Zosyn. (4) Hypertension Qualifiers: Hypertension type: essential hypertension Qualified Code(s): I10 - Essential (primary) hypertension Is this a current diagnosis for this admission?: Yes Plan: Continue home medication regiment of Carvedilol, spironolactone, lisinopril. 11/02/2018-patient blood pressure today is 94/44 despite being on IV fluids 125 cc/h plan is to hold Coreg, spironolactone and lisinopril for today. 11/03/2018-latest blood pressure is 107/50 blood pressure medications are on hold. plan is to increase fluids to 200 cc/h today. To watch for the fluid overload. 11/04/2018-blood pressure today is 118/50 antihypertensives are still on hold. 11/05/2018-patient blood pressure today is 154/70 stable plan is to continue the present management patient is presently off the IV fluids. Plan is to restart his home medications. (5) CAD (coronary artery disease) Qualifiers: Coronary Disease-Associated Artery/Lesion type: unspecified vessel or lesion type Associated angina: without angina Is this a current diagnosis for this admission?: Yes Plan: No chest pain at present. Troponin negative. EKG is negative for ischemic changes. Continue home medication regiment of aspirin, Plavix, atorvastatin, Ranexa, carvedilol, spironolactone, lisinopril. 11/02/2018-no complaints of chest pain today plan is to continue aspirin, Plavix, atorvastatin and Ranexa and to hold blood pressure medications because the blood pressure is very low today. 11/05/2018-patient has history of coronary artery disease . No complaints of chest pain during this hospital stay. (6) CAP (community acquired pneumonia) Qualifiers: Laterality: right Lung location: unspecified part of lung Qualified Code(s): J18.9 - Pneumonia, unspecified organism Is this a current diagnosis for this admission?: Yes Plan: Ruled out; Afebrile, scant rhonchi on exam, though CXR clear and maintaining oxygen saturations on room air. Patient and report recent productive cough. Supplemental oxygen as needed. As needed nebulizer treatments. Encourage pulmonary toilet. 11/02/2018-chest x-ray was negative and pulse oxes within normal range at 98% on 2 L community-acquired pneumonia is ruled out. 11/03/2018-patient's pulse ox today is 95% on room air. Plan is to continue the present management. 11/04/2018-patient pulse ox is 94% on room air comfortably sleeping in the bed not will start working not in distress. 11/05/2018-patient pulse ox today is 94% on room air chest bilateral it was decreased no wheezing no crepitations present on examination. - Time Time Spent with patient: 15-24 minutes Medications reviewed and adjusted accordingly: Yes Anticipated discharge: SNF
[2018-11-05] MEDS: DOCUSATE SODIUM 100 MG/10 ML UDC PO SCH ×2 (09:35→17:27)
[2018-11-05] MEDS: RANOLAZINE 500 MG TAB.SR.12H PO SCH ×2 (09:48→21:03)
[2018-11-05] MEDS: FINASTERIDE 5 MG TABLET PO SCH (09:48)
[2018-11-05] MEDS: ATORVASTATIN CALCIUM 20 MG TABLET PO SCH (09:48)
[2018-11-05] MEDS: ASPIRIN 81 MG TABLET, ENT COATED PO SCH (09:48)
[2018-11-05] MEDS: CARVEDILOL 6.25 MG TABLET PO SCH ×2 (09:48→21:03)
[2018-11-05] MEDS: CLOPIDOGREL BISULFATE 75 MG TABLET PO SCH (09:48)
[2018-11-05] MEDS: CEFTRIAXONE 2 GM/D5W RTU 2 GM/50 ML RTUPB IV SCH (09:49)
--- NOTE | 2018-11-05 10:05 | OPERATIVE REPORT E ---
Operative Report NAME: LEANNE FAROOQ : 1930 AGE: 88Y DATE OF SURGERY: 11/01/2018 ROOM: 407 PREOPERATIVE DIAGNOSIS: LEFT PERINEAL ABSCESS EXTENDING TO THE LEFT GROIN. POSTOPERATIVE DIAGNOSIS: LEFT PERINEAL ABSCESS EXTENDING TO THE LEFT GROIN. OPERATION: 1. Incision with drainage of left perineal abscess. 2. Rigid sigmoidoscopy. SURGEON: DELORES VINCENT M.D. SENIOR APPLICATIONS ENGINEER: none COMPLICATIONS: None. ANESTHESIA: IV sedation INDICATION AND FINDINGS: This is an 88-year-old male admitted for weakness, fall, leukocytosis, confusion; found to have an abscess in the left perineum. A CAT scan of the pelvis was obtained, revealing extension of the abscess toward the groin. This was felt on physical exam of abscess of the left perineum which was extending to the left groin. A decision was made to incise and drain the left perineal abscess and to drain also the extension of abscess directed toward the left groin. DESCRIPTION OF PROCEDURE: The procedure was done in the operating room. The patient was placed in a supine lithotomy position. A sterile rigid proctosigmoscope was inserted up to about 15 cm, slowly withdrawn, and no communication between the left perineum and the rectum was identified. At this point, the area of the left perineum and left upper inner thigh were infiltrated with 1% lidocaine with epinephrine. A vertical incision was then made in the left perineum on top of the skin abscess, which was drained, and a fair amount of stephany-colored fluid was drained, and this was sent for aerobic and anaerobic culture and Gram stain. After this was accomplished, a finger was inserted through the perineal incision, advanced superiorly toward the groin. A counterincision was made at the tip of the finger. A 1/4-inch Bulan drain was threaded through the two openings and secured to itself with a silk suture. However, on further examination, the abscess appeared to extend further superiorly toward the left groin. Therefore, a finger was inserted through the upper left groin incision already made and directed superiorly toward the groin. A second counterincision was made and again, a second Alden drain trimmed to size was threaded between the 2 incisions and tied to itself with a silk suture. Both cavities were then irrigated with about 5 mL of warm normal saline. Both cavities were packed with 1/4-inch package tape. Sterile dressings and surgical pantyhose were applied. The patient was extubated, tolerated the procedure well, and was transferred to the recovery room. He was later discharged to the floor in satisfactory condition. DICTATING PHYSICIAN: DELORES VINCENT M.D. [id number] PHY#: [id number] ID: [id number] JOB#: [id number] ACCT: [id number] cc:DELORES VINCENT M.D. > MTDD
[2018-11-06] MEDS: IPRATROPIUM/ALBUTEROL 0.5-2.5 MG/3 ML AMPUL NEB SCH ×3 (00:50→15:58)
[2018-11-06] MEDS: ACETAMINOPHEN 325 MG TABLET PO SCH ×4 (04:29→21:00)
[2018-11-06] MEDS: CLINDAMYCIN 600 MG/D5W RTU 600 MG/50 ML RTUPB IV SCH ×3 (05:37→21:00)
[2018-11-06] MEDS: HEPARIN SOD (PORCINE) 5,000 UNIT/ML 1 ML VIAL SUBCUT SCH ×3 (05:37→21:01)
[2018-11-06] MEDS: PANTOPRAZOLE SODIUM 40 MG TABLET.DR PO SCH (05:37)
[2018-11-06 06:09] LABS: ABSOLUTE BASOPHILS # (AUTO) 0.1 10^3/uL (0.0-0.2); ABSOLUTE EOSINOPHILS # (AUTO) 0.5 10^3/uL (0.0-0.6); ABSOLUTE LYMPHOCYTES (AUTO) 1.1 10^3/uL (0.5-4.7); ABSOLUTE MONOCYTES (AUTO) 0.5 10^3/uL (0.1-1.4); ABSOLUTE NEUT (AUTO) 5.2 10^3/uL (1.7-8.2); BASOPHILS % (AUTO) 0.9 % (0-2); EOSINOPHILS % (AUTO) 6.4 % (0-6); HEMATOCRIT 31.2 % (37.9-51.0); HEMOGLOBIN 10.6 g/dL (13.5-17.0); LYMPHOCYTES % (AUTO) 14.8 % (13-45); MEAN CORPUSCULAR HEMOGLOBIN 29.6 pg (27.0-33.4); MEAN CORPUSCULAR VOLUME 87 fl (80-97); MONOCYTES % (AUTO) 6.4 % (3-13); PLATELET COUNT 198 10^3/uL (150-450); RED BLOOD COUNT 3.57 10^6/uL (4.35-5.55); RED CELL DISTRIBUTION WIDTH 15.6 % (11.5-14.0); SEGMENTED NEUTROPHILS % (AUTO) 71.5 % (42-78); TOTAL CELLS COUNTED % (AUTO) 100 %; WHITE BLOOD COUNT 7.3 10^3/uL (4.0-10.5)
[2018-11-06 06:31] LABS: ALBUMIN 2.6 g/dL (3.5-5.0); ALKALINE PHOSPHATASE 46 U/L (38-126); ANION GAP 7 (5-19); ASPARTATE AMINO TRANSFERASE 17 U/L (17-59); BILIRUBIN,DIRECT 0.3 mg/dL (0.0-0.4); BILIRUBIN,TOTAL 0.3 mg/dL (0.2-1.3); BLOOD UREA NITROGEN 30 mg/dL (7-20); CALCIUM 8.4 mg/dL (8.4-10.2); CARBON DIOXIDE 20 mmol/L (22-30); CHLORIDE 112 mmol/L (98-107); GLUCOSE 81 mg/dL (75-110); POTASSIUM 4.1 mmol/L (3.6-5.0); TOTAL PROTEIN 5.3 g/dL (6.3-8.2)
[2018-11-06 06:44] LABS: APPEARANCE,URINE CLEAR; BILIRUBIN,URINE NEGATIVE (NEGATIVE); COLOR,URINE YELLOW; GLUCOSE, URINE NEGATIVE (NEGATIVE); KETONES,URINE NEGATIVE (NEGATIVE); LEUKOCYTE ESTERASE,URINE NEGATIVE (NEGATIVE); NITRITE,URINE NEGATIVE (NEGATIVE); PROTEIN,URINE NEGATIVE (NEGATIVE); URINE SPECIFIC GRAVITY 1.018; UROBILINOGEN,URINE NEGATIVE mg/dL (<2.0)
--- NOTE | 2018-11-06 09:14 | PDOC PROGRESS REPORT ---
Subjective Progress Note for:: 11/06/18 Subjective:: 88 year old male with a past medical history of recent PA (5 stents), HTN, HLD, COPD, remote CVA, Hypothyroidism, BPH, GERD, and dementia who was admitted 10/31/18 for increased confusion, generalized weakness and falls. Patient was seen on morning rounds. He was found resting in bed comfortably on room air. He is orientated to self and hospital, but otherwise pleasantly confused. He is socially appropriate, conversational, and follows directions. He denies all complaints at this time; no fever, body aches, chest pain, difficulty breathing, abdominal pain, nausea or vomiting. He does confirm perineal discomfort; noted to have abscess to his right perineum. ROS is somewhat limited secondary to baseline mental status. He does appear to be comfortable and not in any acute distress at this time. No concerns per nursing. 11/02/[id number]-ihqa-old male with multiple medical problems including coronary artery disease with STEMI, hypertension, hyperlipidemia, COPD, remote CVA, BPH, gastroesophageal reflux disease, dementia admitted for increased confusion generalized weakness and falls. Patient found to have an abscess or perirectal abscess status post I/D was done yesterday. He was hypotensive this morning blood pressure is 94/44 despite being on IV fluids 125 cc/h. Plan is to stop lisinopril, spironolactone, Coreg for today. And creatinine is also worsened to 2.04. His baseline creatinine is around 1.7. Patient is comfortably in the bed communicating okay not confused not agitated. 11/03/[id number]-pgql-old male admitted for perianal abscess status post incision and drainage was done. The cultures from the incision site is pending. Patient is afebrile and blood pressures are running low latest blood pressure is 107/50. WBC count is normal. Patient's creatinine went up to 2.47 despite receiving IV fluids at 125 cc/h. Plan is to increase the fluids to 200 cc/h. Yesterday patient's lisinopril spironolactone and Coreg was on placed on hold. Patient is on IV zosyn at this time. 11/04-year-old male admitted with perineal abscess status post incision and drainage. Cultures came back positive for gram-negative rods and gram- positive cocci. Presently on IV ceftriaxone and clindamycin. Afebrile. Surgery signed off. Yesterday with IV fluids he was more short of breath and scrotal edema was noticed. IV fluids are discontinued and he was given a Lasix of 20 mg IV 1 dose. Patient is comfortably sleeping in the bed pulse ox is 94% on room air. Urinary output is 1200 mL. Edema was resolved. But the creatinine is continued to rise it was 2.6 today. Renal ultrasound was negative for acute pathology. 11/05/[id number]-cndd-old male admitted with perineal abscesses status post incision and drainage was done. Cultures are positive for gram-positive cocci. Presently on IV ceftriaxone and clindamycin. Afebrile. WBC count is 8 today. Blood pressure is stable. T-max is 98.5. Pulse ox is 94% on room air. comf ortably in the bed communicating okay not in distress. 11/06/2018-no acute events in the last 24 hours. Patient is comfortable in the bed. He is receiving ceftriaxone and clindamycin. Wound cultures came back positive for Proteus and MRSA. Afebrile. WBC count is 7.3. Patient is e xpressing desire to go home once he is medically cleared. Reason For Visit: PERIRECTAL ABSCESS, LEUKOCYTOSIS, FEVER Physical Exam Vital Signs: Temp Pulse Resp BP Pulse Ox 98.0 F 79 20 173/73 H 94 11/06/18 08:38 11/06/18 08:38 11/06/18 08:38 11/06/18 08:38 11/06/18 08:38 Pulse Oximeter Continuous Start: 11/01/18 19:06 Freq: RTQ4 Status: Complete Protocol: Document 11/03/18 08:02 [facility] [place]Rec: 11/03/18 08:02 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 ABSENT: diastolic murmur, rubs, systolic murmur GI/Abdominal exam: PRESENT: normal bowel sounds, soft. ABSENT: distended, guarding, mass, organolmegaly, rebound, tenderness Rectal exam: PRESENT: deferred Extremities exam: PRESENT: full ROM. ABSENT: calf tenderness, clubbing, pedal edema Neurological exam: PRESENT: alert, awake, oriented to person, oriented to place, oriented to time, oriented to situation, CN II-XII grossly intact. ABSENT: motor sensory deficit Psychiatric exam: PRESENT: appropriate affect, normal mood. ABSENT: homicidal ideation, suicidal ideation Results Laboratory Results: 11/06/18 05:24 11/06/18 05:24 11/06/18 11/06/18 11/06/18 05:24 05:24 06:28 WBC 7.3 RBC 3.57 L Hgb 10.6 L Hct 31.2 L MCV 87 MCH 29.6 MCHC 34.0 RDW 15.6 H Plt Count 198 Seg Neutrophils % 71.5 Sodium 139.3 Potassium 4.1 Chloride 112 H Carbon Dioxide 20 L Anion Gap 7 BUN 30 H Creatinine 1.92 H Est GFR ( Amer) 40 L Glucose 81 Calcium 8.4 Magnesium 1.9 Total Bilirubin 0.3 AST 17 Alkaline Phosphatase 46 Total Protein 5.3 L Albumin 2.6 L Urine Color YELLOW Urine Appearance CLEAR Urine pH 5.0 Ur Specific Katy 1.018 Urine Protein NEGATIVE Urine Glucose (UA) NEGATIVE Urine Ketones NEGATIVE Urine Blood SMALL H Urine Nitrite NEGATIVE Ur Leukocyte Esterase NEGATIVE Urine WBC (Auto) 0 Urine RBC (Auto) 13 10/31/18 17:00 Blood Blood Culture - Final NO GROWTH IN 5 DAYS 10/31/18 15:40 Blood Blood Culture - Final NO GROWTH IN 5 DAYS 11/01/18 18:00 Groin - Abscess Gram Stain - Final 11/01/18 18:00 Groin - Abscess Wound Culture - Final Proteus Mirabilis Mrsa (Meth Resis Staph Aureus) No Anaerobic Organisms 10/31/18 10:23 Troponin I 0.056 Impressions: Head CT 10/31/18 10:21 IMPRESSION: MILD CHRONIC CHANGES OF ATROPHY AND MICROVASCULAR ISCHEMIA. NO ACUTE PROCESS. EVIDENCE OF ACUTE STROKE: NO. Chest X-Ray 10/31/18 11:31 IMPRESSION: NO ACUTE FINDINGS. Pelvis CT 11/01/18 00:00 IMPRESSION: There are inflammatory changes in the medial left thigh and perineum. No abscess is seen. There is diverticulosis coli. Renal Ultrasound 11/03/18 00:00 IMPRESSION: Multiple bilateral renal cysts Age-appropriate cortical thinning and increased echogenicity both kidneys. No hydronephrosis Wallace catheter decompresses the bladder Assessment and Plan - Diagnosis (1) Abscess of multiple sites of perineum Is this a current diagnosis for this admission?: Yes Plan: Sacral decubitus ulcer and abscesses noted during hygiene care today. CT of pelvis with contrast revealed inflammatory changes to the medial left thigh and perineum; no abscesses notified. Blood cultures pending Surgery was consulted; appreciate Dr. Chavez's evaluation and assistance. Possible surgical debridement this afternoon. Currently in n.p.o. status. Antibiotics changed to IV Zosyn. 11/02/2018-patient admitted with perirectal abscess status post I&D was done yesterday. Patient is presently on IV Zosyn. Cultures are negative so far. WBC count came down to 10,900. Plan is to continue the present management. 11/03/2018-patient admitted with perineal abscess status post incision and drainage was done 2 days ago. Presently on IV Zosyn. WBC count today is 9400 improved. Cultures from the wound site are pending. 11/04/2018-patient admitted with abscesses in multiple places of the perineum status post incision and drainage was done wound cultures were positive for gram-negative rods and gram-positive cocci. Presently on IV ceftriaxone and clindamycin. Afebrile. 11/05/2018-patient admitted with perineal abscesses status post incision and drainage wound cultures are positive for gram-positive cocci in clusters p resently on IV ceftriaxone and clindamycin plan is to continue the present management at this time patient is afebrile wBC count is within normal limits. 11/06/2018-wound cultures came back positive for MRSA and Proteus mirabilis presently on ceftriaxone and clindamycin. Afebrile. WBC count is within normal range. Plan is to continue the antibiotic therapy. (2) Leukocytosis Is this a current diagnosis for this admission?: Yes Plan: Decreased from 17.9-15.2. Patient was nearly initially placed on azithromycin and Rocephin for treatment of CAP as there was no other definitive source of infection identified. However, CXR was clear. Patient now found to have a sacral decubitus ulcer with possible abscess formation to his right perineum. Blood cultures pending. Antibiotics as above. 11/02/2018-WBC count came down to normal 10,900. Patient is afebrile. But hypotensive. Plan is to continue IV fluids normal saline at 125 cc/h and blood pressure medications are on hold. Status post I&D was done yesterday. [facility] surgery is continue to follow the patient on regular basis. 11/03/2018-WBC count is 9400 today normal. Plan is to continue IV Zosyn until culture reports are available. 11/04/2018-WBC count today is 7900 within normal range. Leukocytosis is resolved. 11/05/2018-WBC count is 8000 within normal limits. Patient is afebrile. Leukocytosis secondary to infection resolved. 11/06/2018-WBC count is 7300 leukocytosis resolved. (3) Chronic kidney disease Qualifiers: Chronic kidney disease stage: stage 3 (moderate) Qualified Code(s): N18.3 - Chronic kidney disease, stage 3 (moderate) Is this a current diagnosis for this admission?: Yes Plan: Stable; baseline creatinine of 1.73. Avoid nephrotoxic medications as able. Monitor daily chemistry. 11/02/2018-patient's baseline creatinine is around 1.7 it was worsened to 2.04 today. Plan is to continue IV fluids at 125 cc/h and hold lisinopril, spironolactone and Coreg for today because the blood pressure is 94/44. plan Is to repeat the labs tomorrow. 11/03 2018-patient's baseline creatinine is 1.7 despite receiving IV fluids at 125 cc/h creatinine went up to 2.47. It may be due to zosyn. Plan is to discontinue Zosyn and increase the fluids to 200 cc/h and to start on IV Rocephin and IV clindamycin. 11/04/2018-patient creatinine today is 2.6 continue to rise. Yesterday IV fluids are discontinued because patient is getting short of breath and a scrotal edema was noticed. IV fluids are discontinued he was given a Lasix 20 mg IV 1 dose edema was resolved urinary output is very good today. Renal ultrasound was negative. Plan is to continue to closely monitor his renal function. 11/05/2018-patient's creatinine today is 2.1 improved from 2.6 yesterday. Patient is off the IV fluids. Plan is to continue to closely monitor his kidney function. he has baseline creatinine is around 1.7. JASWINDER may be secondary to ATN because of foot Zosyn. 11/06 2018-serum creatinine today is 1.9 improved from 2.1. He is not on IV fluids. JASWINDER is resolving. Baseline creatinine is around 1.7. (4) Hypertension Qualifiers: Hypertension type: essential hypertension Qualified Code(s): I10 - Essential (primary) hypertension Is this a current diagnosis for this admission?: Yes Plan: Continue home medication regiment of Carvedilol, spironolactone, lisinopril. 11/02/2018-patient blood pressure today is 94/44 despite being on IV fluids 125 cc/h plan is to hold Coreg, spironolactone and lisinopril for today. 11/03/2018-latest blood pressure is 107/50 blood pressure medications are on hold . plan is to increase fluids to 200 cc/h today. To watch for the fluid overload. 11/04/2018-blood pressure today is 118/50 antihypertensives are still on hold. 11/05/2018-patient blood pressure today is 154/70 stable plan is to continue the present management patient is presently off the IV fluids. Plan is to restart his home medications. 11/06/2018-patient blood pressure today is 155/68. Stable. Plan is to continue to closely monitor his blood pressures. Presently on Coreg 6.25 mg p.o. every 12 hours. (5) CAD (coronary artery disease) Qualifiers: Coronary Disease-Associated Artery/Lesion type: unspecified vessel or lesion type Associated angina: without angina Is this a current diagnosis for this admission?: Yes (6) CAP (community acquired pneumonia) Qualifiers: Laterality: right Lung location: unspecified part of lung Qualified Code(s): J18.9 - Pneumonia, unspecified organism Is this a current diagnosis for this admission?: Yes Plan: Ruled out; Afebrile, scant rhonchi on exam, though CXR clear and maintaining oxygen saturations on room air. Patient and report recent productive cough. Supplemental oxygen as needed. As needed nebulizer treatments. Encourage pulmonary toilet. 11/02/2018-chest x-ray was negative and pulse oxes within normal range at 98% on 2 L community-acquired pneumonia is ruled out. 11/03/2018-patient's pulse ox today is 95% on room air. Plan is to continue the present management. 11/04/2018-patient pulse ox is 94% on room air comfortably sleeping in the bed not will start working not in distress. 11/05/2018-patient pulse ox today is 94% on room air chest bilateral it was decreased no wheezing no crepitations present on examination. 11/06/[id number] pneumonia most likely secondary to gram-positive organisms resolving. Pulse oxes 96% on room air. Comfortably in the bed communicating well. - Time Time Spent with patient: 25-34 minutes Medications reviewed and adjusted accordingly: Yes Anticipated discharge: Home with Homehealth
[2018-11-06] MEDS: ASPIRIN 81 MG TABLET, ENT COATED PO SCH (09:34)
[2018-11-06] MEDS: DOCUSATE SODIUM 100 MG/10 ML UDC PO SCH ×2 (09:34→17:29)
[2018-11-06] MEDS: CLOPIDOGREL BISULFATE 75 MG TABLET PO SCH (09:35)
[2018-11-06] MEDS: CARVEDILOL 6.25 MG TABLET PO SCH ×2 (09:35→21:01)
[2018-11-06] MEDS: ATORVASTATIN CALCIUM 20 MG TABLET PO SCH (09:35)
[2018-11-06] MEDS: RANOLAZINE 500 MG TAB.SR.12H PO SCH ×2 (09:35→21:01)
[2018-11-06] MEDS: CEFTRIAXONE 2 GM/D5W RTU 2 GM/50 ML RTUPB IV SCH (09:36)
[2018-11-06] MEDS: FINASTERIDE 5 MG TABLET PO SCH (09:43)
[2018-11-07] MEDS: IPRATROPIUM/ALBUTEROL 0.5-2.5 MG/3 ML AMPUL NEB SCH ×4 (00:12→23:42)
[2018-11-07] MEDS: ACETAMINOPHEN 325 MG TABLET PO SCH ×4 (03:58→21:08)
[2018-11-07 04:39] LABS: ABSOLUTE BASOPHILS # (AUTO) 0.1 10^3/uL (0.0-0.2); ABSOLUTE EOSINOPHILS # (AUTO) 0.5 10^3/uL (0.0-0.6); ABSOLUTE LYMPHOCYTES (AUTO) 1.3 10^3/uL (0.5-4.7); ABSOLUTE MONOCYTES (AUTO) 0.5 10^3/uL (0.1-1.4); ABSOLUTE NEUT (AUTO) 5.2 10^3/uL (1.7-8.2); BASOPHILS % (AUTO) 0.9 % (0-2); EOSINOPHILS % (AUTO) 7.1 % (0-6); HEMATOCRIT 31.1 % (37.9-51.0); HEMOGLOBIN 10.6 g/dL (13.5-17.0); LYMPHOCYTES % (AUTO) 17.6 % (13-45); MEAN CORPUSCULAR HEMOGLOBIN 29.4 pg (27.0-33.4); MEAN CORPUSCULAR HGB CONC 34.1 g/dL (32.0-36.0); MEAN CORPUSCULAR VOLUME 86 fl (80-97); MONOCYTES % (AUTO) 6.1 % (3-13); PLATELET COUNT 230 10^3/uL (150-450); RED BLOOD COUNT 3.61 10^6/uL (4.35-5.55); RED CELL DISTRIBUTION WIDTH 15.5 % (11.5-14.0); SEGMENTED NEUTROPHILS % (AUTO) 68.3 % (42-78); TOTAL CELLS COUNTED % (AUTO) 100 %; WHITE BLOOD COUNT 7.7 10^3/uL (4.0-10.5)
[2018-11-07 05:00] LABS: ALBUMIN 2.6 g/dL (3.5-5.0); ALKALINE PHOSPHATASE 48 U/L (38-126); ANION GAP 9 (5-19); ASPARTATE AMINO TRANSFERASE 19 U/L (17-59); BILIRUBIN,DIRECT 0.2 mg/dL (0.0-0.4); BILIRUBIN,TOTAL 0.2 mg/dL (0.2-1.3); BLOOD UREA NITROGEN 28 mg/dL (7-20); CALCIUM 8.4 mg/dL (8.4-10.2); CARBON DIOXIDE 19 mmol/L (22-30); CHLORIDE 111 mmol/L (98-107); GLUCOSE 87 mg/dL (75-110); POTASSIUM 4.2 mmol/L (3.6-5.0); TOTAL PROTEIN 5.3 g/dL (6.3-8.2)
[2018-11-07] MEDS: CLINDAMYCIN 600 MG/D5W RTU 600 MG/50 ML RTUPB IV SCH ×3 (06:49→21:07)
[2018-11-07] MEDS: HEPARIN SOD (PORCINE) 5,000 UNIT/ML 1 ML VIAL SUBCUT SCH ×3 (06:49→21:09)
[2018-11-07] MEDS: PANTOPRAZOLE SODIUM 40 MG TABLET.DR PO SCH (06:49)
--- NOTE | 2018-11-07 09:04 | PDOC PROGRESS REPORT ---
Subjective Progress Note for:: 11/07/18 Subjective:: 88 year old male with a past medical history of recent WA (5 stents), HTN, HLD, COPD, remote CVA, Hypothyroidism, BPH, GERD, and dementia who was admitted 10/31/18 for increased confusion, generalized weakness and falls. Patient was seen on morning rounds. He was found resting in bed comfortably on room air. He is orientated to self and hospital, but otherwise pleasantly confused. He is socially appropriate, conversational, and follows directions. He denies all complaints at this time; no fever, body aches, chest pain, difficulty breathing, abdominal pain, nausea or vomiting. He does confirm perineal discomfort; noted to have abscess to his right perineum. ROS is somewhat limited secondary to baseline mental status. He does appear to be comfortable and not in any acute distress at this time. No concerns per nursing. 11/02/[id number]-zsuy-old male with multiple medical problems including coronary artery disease with STEMI, hypertension, hyperlipidemia, COPD, remote CVA, BPH, gastroesophageal reflux disease, dementia admitted for increased confusion generalized weakness and falls. Patient found to have an abscess or perirectal abscess status post I/D was done yesterday. He was hypotensive this morning blood pressure is 94/44 despite being on IV fluids 125 cc/h. Plan is to stop lisinopril, spironolactone, Coreg for today. And creatinine is also worsened to 2.04. His baseline creatinine is around 1.7. Patient is comfortably in the bed communicating okay not confused not agitated. 11/03/[id number]-qbrl-old male admitted for perianal abscess status post incision and drainage was done. The cultures from the incision site is pending. Patient is afebrile and blood pressures are running low latest blood pressure is 107/50. WBC count is normal. Patient's creatinine went up to 2.47 despite receiving IV fluids at 125 cc/h. Plan is to increase the fluids to 200 cc/h. Yesterday patient's lisinopril spironolactone and Coreg was on placed on hold. Patient is on IV zosyn at this time. 11/04-year-old male admitted with perineal abscess status post incision and drainage. Cultures came back positive for gram-negative rods and gram- positive cocci. Presently on IV ceftriaxone and clindamycin. Afebrile. Surgery signed off. Yesterday with IV fluids he was more short of breath and scrotal edema was noticed. IV fluids are discontinued and he was given a Lasix of 20 mg IV 1 dose. Patient is comfortably sleeping in the bed pulse ox is 94% on room air. Urinary output is 1200 mL. Edema was resolved. But the creatinine is continued to rise it was 2.6 today. Renal ultrasound was negative for acute pathology. 11/05/[id number]-rrnp-old male admitted with perineal abscesses status post incision and drainage was done. Cultures are positive for gram-positive cocci. Presently on IV ceftriaxone and clindamycin. Afebrile. WBC count is 8 today. Blood pressure is stable. T-max is 98.5. Pulse ox is 94% on room air. comf ortably in the bed communicating okay not in distress. 11/06/2018-no acute events in the last 24 hours. Patient is comfortable in the bed. He is receiving ceftriaxone and clindamycin. Wound cultures came back positive for Proteus and MRSA. Afebrile. WBC count is 7.3. Patient is e xpressing desire to go home once he is medically cleared. 11/07/[id number]-nkrg-old male with multiple medical problems admitted with perianal abscesses status post issues none drainage was done. Wound cultures were positive for MRSA. Presently on IV clindamycin. Afebrile. WBC count is 7700 T-max is 98.6. Patient is expressing desire to go home once he is medically stable. Reason For Visit: PERIRECTAL ABSCESS, LEUKOCYTOSIS, FEVER Physical Exam Vital Signs: Temp Pulse Resp BP Pulse Ox 98.6 F 78 18 164/67 H 98 11/07/18 00:00 11/07/18 00:14 11/07/18 00:14 11/07/18 00:00 11/07/18 00:14 Pulse Oximeter Continuous Start: 11/01/18 19:06 Freq: RTQ4 Status: Complete Protocol: Document 11/03/18 08:02 [facility] [place] (Rec: 11/03/18 08:02 [facility] [place] [id number][place] Pulse Oximetry Assessment Equipment Usage Equipment Discontinued Continuous SpO2 Machine # [id number] Additional RT Notes Other dc per remote recruiter & Output 11/06/18 11/07/18 11/08/18 06:59 06:59 06:59 Intake Total 1368 1338 50 Output Total 1050 1900 Balance 318 -562 50 Weight 84.5 kg General appearance: PRESENT: no acute distress, cooperative Head exam: PRESENT: atraumatic Eye exam: PRESENT: PERRLA Mouth exam: PRESENT: moist, tongue midline Teeth exam: PRESENT: poor dentation Neck exam: ABSENT: carotid bruit, JVD, lymphadenopathy, thyromegaly Respiratory exam: PRESENT: decreased breath sounds Cardiovascular exam: PRESENT: RRR. ABSENT: diastolic murmur, rubs, systolic murmur GI/Abdominal exam: PRESENT: normal bowel sounds, soft. ABSENT: distended, guarding, mass, organolmegaly, rebound, tenderness Rectal exam: PRESENT: deferred Gentrourinary exam: PRESENT: indwelling catheter Extremities exam: PRESENT: full ROM. ABSENT: calf tenderness, clubbing, pedal edema Neurological exam: PRESENT: alert, awake, oriented to person, oriented to place, oriented to time, oriented to situation, CN II-XII grossly intact. ABSENT: motor sensory deficit Psychiatric exam: PRESENT: appropriate affect, normal mood. ABSENT: homicidal ideation, suicidal ideation Results Laboratory Results: 11/07/18 04:11 11/07/18 04:11 11/07/18 11/07/18 04:11 04:11 WBC 7.7 RBC 3.61 L Hgb 10.6 L Hct 31.1 L MCV 86 MCH 29.4 MCHC 34.1 RDW 15.5 H Plt Count 230 Seg Neutrophils % 68.3 Sodium 138.7 Potassium 4.2 Chloride 111 H Carbon Dioxide 19 L Anion Gap 9 BUN 28 H Creatinine 1.85 H Est GFR ( Amer) 42 L Glucose 87 Calcium 8.4 Magnesium 1.9 Total Bilirubin 0.2 AST 19 Alkaline Phosphatase 48 Total Protein 5.3 L Albumin 2.6 L 10/31/18 10:23 Troponin I 0.056 Impressions: Head CT 10/31/18 10:21 IMPRESSION: MILD CHRONIC CHANGES OF ATROPHY AND MICROVASCULAR ISCHEMIA. NO ACUTE PROCESS. EVIDENCE OF ACUTE STROKE: NO. Chest X-Ray 10/31/18 11:31 IMPRESSION: NO ACUTE FINDINGS. Pelvis CT 11/01/18 00:00 IMPRESSION: There are inflammatory changes in the medial left thigh and perineum. No abscess is seen. There is diverticulosis coli. Renal Ultrasound 11/03/18 00:00 IMPRESSION: Multiple bilateral renal cysts Age-appropriate cortical thinning and increased echogenicity both kidneys. No hydronephrosis Wallace catheter decompresses the bladder Assessment and Plan - Diagnosis (1) Abscess of multiple sites of perineum Is this a current diagnosis for this admission?: Yes Plan: Sacral decubitus ulcer and abscesses noted during hygiene care today. CT of pelvis with contrast revealed inflammatory changes to the medial left thigh and perineum; no abscesses notified. Blood cultures pending Surgery was consulted; appreciate Dr. Chavez's evaluation and assistance. Po ssible surgical debridement this afternoon. Currently in n.p.o. status. Antibiotics changed to IV Zosyn. 11/02/2018-patient admitted with perirectal abscess status post I&D was done yesterday. Patient is presently on IV Zosyn. Cultures are negative so far. WBC count came down to 10,900. Plan is to continue the present management. 11/03/2018-patient admitted with perineal abscess status post incision and drainage was done 2 days ago. Presently on IV Zosyn. WBC count today is 9400 improved. Cultures from the wound site are pending. 11/04/2018-patient admitted with abscesses in multiple places of the perineum status post incision and drainage was done wound cultures were positive for g mango-negative rods and gram-positive cocci. Presently on IV ceftriaxone and clindamycin. Afebrile. 11/05/2018-patient admitted with perineal abscesses status post incision and drainage wound cultures are positive for gram-positive cocci in clusters presently on IV ceftriaxone and clindamycin plan is to continue the present management at this time patient is afebrile wBC count is within normal limits. 11/06/2018-wound cultures came back positive for MRSA and Proteus mirabilis presently on ceftriaxone and clindamycin. Afebrile. WBC count is within normal range. Plan is to continue the antibiotic therapy. 11/07/2018-patient is presently on IV clindamycin wound cultures came back positive for MRSA. Plan is to continue antibiotic therapy until tomorrow probably he will go home on p.o. antibiotics. (2) Leukocytosis Is this a current diagnosis for this admission?: Yes Plan: Decreased from 17.9-15.2. Patient was nearly initially placed on azithromycin and Rocephin for treatment of CAP as there was no other definitive source of infection identified. However, CXR was clear. Patient now found to have a sacral decubitus ulcer with possible abscess formation to his right perineum. Blood cultures pending. Antibiotics as above. 11/02/2018-WBC count came down to normal 10,900. Patient is afebrile. But hypotensive. Plan is to continue IV fluids normal saline at 125 cc/h and blood pressure medications are on hold. Status post I&D was done yesterday. Hopefully surgery is continue to follow the patient on regular basis. 11/03/2018-WBC count is 9400 today normal. Plan is to continue IV Zosyn until culture reports are available. 11/04/2018-WBC count today is 7900 within normal range. Leukocytosis is resolve d. 11/05/2018-WBC count is 8000 within normal limits. Patient is afebrile. Leukocytosis secondary to infection resolved. 11/07/2018-WBC count is 7300 leukocytosis resolved. (3) Chronic kidney disease Qualifiers: Chronic kidney disease stage: stage 3 (moderate) Qualified Code(s): N18.3 - Chronic kidney disease, stage 3 (moderate) Is this a current diagnosis for this admission?: Yes Plan: Stable; baseline creatinine of 1.73. Avoid nephrotoxic medications as able. Monitor daily chemistry. 11/02/2018-patient's baseline creatinine is around 1.7 it was worsened to 2.04 today. Plan is to continue IV fluids at 125 cc/h and hold lisinopril, spironolactone and Coreg for today because the blood pressure is 94/44. plan Is to repeat the labs tomorrow. 11/03 2018-patient's baseline creatinine is 1.7 despite receiving IV fluids at 125 cc/h creatinine went up to 2.47. It may be due to zosyn. Plan is to discontinue Zosyn and increase the fluids to 200 cc/h and to start on IV Rocephin and IV clindamycin. 11/04/2018-patient creatinine today is 2.6 continue to rise. Yesterday IV fluids are discontinued because patient is getting short of breath and a scrotal edema was noticed. IV fluids are discontinued he was given a Lasix 20 mg IV 1 dose edema was resolved urinary output is very good today. Renal ultrasound was negative. Plan is to continue to closely monitor his renal function. 11/05/2018-patient's creatinine today is 2.1 improved from 2.6 yesterday. Renaldo thurston is off the IV fluids. Plan is to continue to closely monitor his kidney function. he has baseline creatinine is around 1.7. JASWINDER may be secondary to ATN because of foot Zosyn. 11/06 2018-serum creatinine today is 1.9 improved from 2.1. He is not on IV fluids. JASWINDER is resolving. Baseline creatinine is around 1.7. 11/07/2018-serum creatinine today is 1.85 continue to improve. Baseline cr eatinine is around 1.7. Patient is not on IV fluids at this moment. (4) Hypertension Qualifiers: Hypertension type: essential hypertension Qualified Code(s): I10 - Essential (primary) hypertension Is this a current diagnosis for this admission?: Yes Plan: Continue home medication regiment of Carvedilol, spironolactone, lisinopril. 11/02/2018-patient blood pressure today is 94/44 despite being on IV fluids 125 cc/h plan is to hold Coreg, spironolactone and lisinopril for today. 11/03/2018-latest blood pressure is 107/50 blood pressure medications are on hold. plan is to increase fluids to 200 cc/h today. To watch for the fluid overload. 11/04/2018-blood pressure today is 118/50 antihypertensives are still on hold. 11/05/2018-patient blood pressure today is 154/70 stable plan is to continue the present management patient is presently off the IV fluids. Plan is to restart his home medications. 11/06/2018-patient blood pressure today is 155/68. Stable. Plan is to continue to closely monitor his blood pressures. Presently on Coreg 6.25 mg p.o. every 12 hours. 11/07/2018-patient blood pressure today is 164/67. Slightly elevated. Presently on Coreg 6.5 mg every 12 hours and to restart spironolactone from today. (5) CAD (coronary artery disease) Qualifiers: Coronary Disease-Associated Artery/Lesion type: unspecified vessel or lesion type Associated angina: without angina Is this a current diagnosis for this admission?: Yes (6) CAP (community acquired pneumonia) Qualifiers: Laterality: right Lung location: unspecified part of lung Qualified Code(s): J18.9 - Pneumonia, unspecified organism Is this a current diagnosis for this admission?: Yes - Time Time Spent with patient: 25-34 minutes Medications reviewed and adjusted accordingly: Yes Anticipated discharge: Home with Homehealth
[2018-11-07] MEDS: DOCUSATE SODIUM 100 MG/10 ML UDC PO SCH ×2 (09:44→17:03)
[2018-11-07] MEDS: CLOPIDOGREL BISULFATE 75 MG TABLET PO SCH (09:44)
[2018-11-07] MEDS: CARVEDILOL 6.25 MG TABLET PO SCH ×2 (09:45→21:08)
[2018-11-07] MEDS: FINASTERIDE 5 MG TABLET PO SCH (09:45)
[2018-11-07] MEDS: SPIRONOLACTONE 25 MG TABLET PO SCH (09:45)
[2018-11-07] MEDS: ATORVASTATIN CALCIUM 20 MG TABLET PO SCH (09:48)
[2018-11-07] MEDS: CEFTRIAXONE 2 GM/D5W RTU 2 GM/50 ML RTUPB IV SCH (09:48)
[2018-11-07] MEDS: ASPIRIN 81 MG TABLET, ENT COATED PO SCH (09:48)
[2018-11-07] MEDS: RANOLAZINE 500 MG TAB.SR.12H PO SCH ×2 (09:49→21:09)
[2018-11-08 06:14] LABS: HEMATOCRIT 28.5 % (37.9-51.0); HEMOGLOBIN 9.8 g/dL (13.5-17.0); MEAN CORPUSCULAR HEMOGLOBIN 29.7 pg (27.0-33.4); MEAN CORPUSCULAR HGB CONC 34.3 g/dL (32.0-36.0); MEAN CORPUSCULAR VOLUME 87 fl (80-97); PLATELET COUNT 221 10^3/uL (150-450); RED BLOOD COUNT 3.28 10^6/uL (4.35-5.55); RED CELL DISTRIBUTION WIDTH 15.6 % (11.5-14.0)
[2018-11-08] MEDS: ACETAMINOPHEN 325 MG TABLET PO SCH ×4 (06:23→21:17)
[2018-11-08] MEDS: CLINDAMYCIN 600 MG/D5W RTU 600 MG/50 ML RTUPB IV SCH ×3 (06:26→21:16)
[2018-11-08] MEDS: PANTOPRAZOLE SODIUM 40 MG TABLET.DR PO SCH (06:27)
[2018-11-08] MEDS: HEPARIN SOD (PORCINE) 5,000 UNIT/ML 1 ML VIAL SUBCUT SCH ×3 (06:27→21:17)
[2018-11-08 06:36] LABS: ALBUMIN 2.3 g/dL (3.5-5.0); ALKALINE PHOSPHATASE 43 U/L (38-126); ANION GAP 7 (5-19); ASPARTATE AMINO TRANSFERASE 17 U/L (17-59); BLOOD UREA NITROGEN 20 mg/dL (7-20); CALCIUM 7.2 mg/dL (8.4-10.2); CARBON DIOXIDE 17 mmol/L (22-30); CHLORIDE 116 mmol/L (98-107); POTASSIUM 3.7 mmol/L (3.6-5.0); TOTAL PROTEIN 4.7 g/dL (6.3-8.2)
[2018-11-08 07:00] LABS: BILIRUBIN,TOTAL < 0.1 mg/dL (0.2-1.3)
[2018-11-08 07:01] LABS: GLUCOSE 67 mg/dL (75-110)
[2018-11-08] MEDS: IPRATROPIUM/ALBUTEROL 0.5-2.5 MG/3 ML AMPUL NEB SCH ×2 (07:45→15:48)
[2018-11-08] MEDS: SPIRONOLACTONE 25 MG TABLET PO SCH (09:31)
[2018-11-08] MEDS: FINASTERIDE 5 MG TABLET PO SCH (09:31)
[2018-11-08] MEDS: RANOLAZINE 500 MG TAB.SR.12H PO SCH ×2 (09:31→21:18)
[2018-11-08] MEDS: MAGNESIUM OXIDE 400 MG TABLET PO SCH ×2 (09:32→17:15)
[2018-11-08] MEDS: ATORVASTATIN CALCIUM 20 MG TABLET PO SCH (09:32)
[2018-11-08] MEDS: CLOPIDOGREL BISULFATE 75 MG TABLET PO SCH (09:32)
[2018-11-08] MEDS: CEFTRIAXONE 2 GM/D5W RTU 2 GM/50 ML RTUPB IV SCH (09:33)
[2018-11-08] MEDS: CARVEDILOL 6.25 MG TABLET PO SCH ×2 (09:33→21:17)
[2018-11-08] MEDS: DOCUSATE SODIUM 100 MG CAPSULE PO SCH ×2 (09:33→17:13)
[2018-11-08] MEDS: ASPIRIN 81 MG TABLET, ENT COATED PO SCH (09:33)
--- NOTE | 2018-11-08 15:22 | PDOC PROGRESS REPORT ---
Subjective Progress Note for:: 11/08/18 Subjective:: 88 year old male with a past medical history of recent CO (5 stents), HTN, HLD, COPD, remote CVA, Hypothyroidism, BPH, GERD, and dementia who was admitted 10/31/18 for increased confusion, generalized weakness and falls. Patient was seen on morning rounds. He was found resting in bed comfortably on room air. He is orientated to self and hospital, but otherwise pleasantly confused. He is socially appropriate, conversational, and follows directions. He denies all complaints at this time; no fever, body aches, chest pain, difficulty breathing, abdominal pain, nausea or vomiting. He does confirm perineal discomfort; noted to have abscess to his right perineum. ROS is somewhat limited secondary to baseline mental status. He does appear to be comfortable and not in any acute distress at this time. No concerns per nursing. 11/02/[id number]-qovy-old male with multiple medical problems including coronary artery disease with STEMI, hypertension, hyperlipidemia, COPD, remote CVA, BPH, gastroesophageal reflux disease, dementia admitted for increased confusion generalized weakness and falls. Patient found to have an abscess or perirectal abscess status post I/D was done yesterday. He was hypotensive this morning blood pressure is 94/44 despite being on IV fluids 125 cc/h. Plan is to stop lisinopril, spironolactone, Coreg for today. And creatinine is also worsened to 2.04. His baseline creatinine is around 1.7. Patient is comfortably in the bed communicating okay not confused not agitated. 11/03/[id number]-gola-old male admitted for perianal abscess status post incision and drainage was done. The cultures from the incision site is pending. Patient is afebrile and blood pressures are running low latest blood pressure is 107/50. WBC count is normal. Patient's creatinine went up to 2.47 despite receiving IV fluids at 125 cc/h. Plan is to increase the fluids to 200 cc/h. Yesterday patient's lisinopril spironolactone and Coreg was on placed on hold. Patient is on IV zosyn at this time. 11/04-year-old male admitted with perineal abscess status post incision and drainage. Cultures came back positive for gram-negative rods and gram- positive cocci. Presently on IV ceftriaxone and clindamycin. Afebrile. Surgery signed off. Yesterday with IV fluids he was more short of breath and scrotal edema was noticed. IV fluids are discontinued and he was given a Lasix of 20 mg IV 1 dose. Patient is comfortably sleeping in the bed pulse ox is 94% on room air. Urinary output is 1200 mL. Edema was resolved. But the creatinine is continued to rise it was 2.6 today. Renal ultrasound was negative for acute pathology. 11/05/[id number]-xdzw-old male admitted with perineal abscesses status post incision and drainage was done. Cultures are positive for gram-positive cocci. Presently on IV ceftriaxone and clindamycin. Afebrile. WBC count is 8 today. Blood pressure is stable. T-max is 98.5. Pulse ox is 94% on room air. comf ortably in the bed communicating okay not in distress. 11/06/2018-no acute events in the last 24 hours. Patient is comfortable in the bed. He is receiving ceftriaxone and clindamycin. Wound cultures came back positive for Proteus and MRSA. Afebrile. WBC count is 7.3. Patient is e xpressing desire to go home once he is medically cleared. 11/07/[id number]-cpup-old male with multiple medical problems admitted with perianal abscesses status post issues none drainage was done. Wound cultures were positive for MRSA. Presently on IV clindamycin. Afebrile. WBC count is 7700 T-max is 98.6. Patient is expressing desire to go home once he is medically stable. 11/08/20181972-06-kcur-old admitted with perianal abscesses status post itchiness and drainage he is receiving IV antibiotic therapy afebrile. Presently on IV clindamycin. Sickle therapy recommended rehab placement. Patient has a bed available in [facility] will be discharged there tomorrow. Reason For Visit: PERIRECTAL ABSCESS, LEUKOCYTOSIS, FEVER Physical Exam Vital Signs: Temp Pulse Resp BP Pulse Ox 97.5 F 72 24 H 146/86 H 97 11/08/18 12:04 11/08/18 12:04 11/08/18 12:04 11/08/18 12:04 11/08/18 12:04 Pulse Oximeter Continuous Start: 11/01/18 19: 06 Freq: RTQ4 Status: Complete Protocol: Document 11/03/18 08:02 [facility] (Rec: 11/03/18 08:02 [facility] [id number]) Pulse Oximetry Assessment Equipment Usage Equipment Discontinued Continuous SpO2 Machine # [id number] Additional RT Notes Other dc per reference archivist & Output 11/07/18 11/08/18 11/09/18 06:59 06:59 06:59 Intake Total 1338 720 150 Output Total 1900 1300 Balance -562 -580 150 Weight 80.9 kg General appearance: PRESENT: no acute distress Head exam: PRESENT: atraumatic Eye exam: PRESENT: PERRLA Ear exam: PRESENT: normal external ear exam Mouth exam: PRESENT: moist, tongue midline Teeth exam: PRESENT: poor dentation Neck exam: ABSENT: carotid bruit, JVD, lymphadenopathy, thyromegaly Respiratory exam: PRESENT: decreased breath sounds Cardiovascular exam: PRESENT: RRR. ABSENT: diastolic murmur, rubs, systolic murmur GI/Abdominal exam: PRESENT: normal bowel sounds, soft. ABSENT: distended, guarding, mass, organolmegaly, rebound, tenderness Rectal exam: PRESENT: deferred Extremities exam: PRESENT: full ROM. ABSENT: calf tenderness, clubbing, pedal edema Neurological exam: PRESENT: alert, awake, oriented to person, oriented to place, oriented to time, oriented to situation, CN II-XII grossly intact. ABSENT: motor sensory deficit Psychiatric exam: PRESENT: appropriate affect, normal mood. ABSENT: homicidal ideation, suicidal ideation Results Laboratory Results: 11/08/18 05:17 11/08/18 05:17 11/08/18 11/08/18 05:17 05:17 WBC 8.0 RBC 3.28 L Hgb 9.8 L Hct 28.5 L MCV 87 MCH 29.7 MCHC 34.3 RDW 15.6 H Plt Count 221 Sodium 139.7 Potassium 3.7 Chloride 116 H Carbon Dioxide 17 L Anion Gap 7 BUN 20 Creatinine 1.52 H Est GFR ( Amer) 53 L Glucose 67 L Calcium 7.2 L Magnesium 1.6 Total Bilirubin < 0.1 L AST 17 Alkaline Phosphatase 43 Total Protein 4.7 L Albumin 2.3 L 10/31/18 10:23 Troponin I 0.056 Impressions: Head CT 10/31/18 10:21 IMPRESSION: MILD CHRONIC CHANGES OF ATROPHY AND MICROVASCULAR ISCHEMIA. NO ACUTE PROCESS. EVIDENCE OF ACUTE STROKE: NO. Chest X-Ray 10/31/18 11:31 IMPRESSION: NO ACUTE FINDINGS. Pelvis CT 11/01/18 00:00 IMPRESSION: There are inflammatory changes in the medial left thigh and perineum. No abscess is seen. There is diverticulosis coli. Renal Ultrasound 11/03/18 00:00 IMPRESSION: Multiple bilateral renal cysts Age-appropriate cortical thinning and increased echogenicity both kidneys. No hydronephrosis Wallace catheter decompresses the bladder Assessment and Plan - Diagnosis (1) Abscess of multiple sites of perineum Is this a current diagnosis for this admission?: Yes Plan: Sacral decubitus ulcer and abscesses noted during hygiene care today. CT of pelvis with contrast revealed inflammatory changes to the medial left thigh and perineum; no abscesses notified. Blood cultures pending Surgery was consulted; appreciate Dr. Chavez's evaluation and assistance. Possible surgical debridement this afternoon. Currently in n.p.o. status. Antibiotics changed to IV Zosyn. 11/02/2018-patient admitted with perirectal abscess status post I&D was done yesterday. Patient is presently on IV Zosyn. Cultures are negative so far. WBC count came down to 10,900. Plan is to continue the present management. 11/03/2018-patient admitted with perineal abscess status post incision and drainage was done 2 days ago. Presently on IV Zosyn. WBC count today is 9400 improved. Cultures from the wound site are pending. 11/04/2018-patient admitted with abscesses in multiple places of the perineum status post incision and drainage was done wound cultures were positive for gram-negative rods and gram-positive cocci. Presently on IV ceftriaxone and clindamycin. Afebrile. 11/05/2018-patient admitted with perineal abscesses status post incision and drainage wound cultures are positive for gram-positive cocci in clusters presently on IV ceftriaxone and clindamycin plan is to continue the present management at this time patient is afebrile wBC count is within normal limits. 11/06/2018-wound cultures came back positive for MRSA and Proteus mirabilis presently on ceftriaxone and clindamycin. Afebrile. WBC count is within normal range. Plan is to continue the antibiotic therapy. 11/07/2018-patient is presently on IV clindamycin wound cultures came back positive for MRSA. Plan is to continue antibiotic therapy until tomorrow probably he will go home on p.o. antibiotics. 11/08/[id number]-kpti-old male admitted with a perineal abscesses status post incision and drainage cultures are positive for MRSA presently on IV antibiotic therapy reaction on clindamycin afebrile. Patient may go to rehab facility tomorrow with p.o. antibiotic therapy. (2) Leukocytosis Is this a current diagnosis for this admission?: Yes Plan: Decreased from 17.9-15.2. Patient was nearly initially placed on azithromycin and Rocephin for treatment of CAP as there was no other definitive source of infection identified. However, CXR was clear. Patient now found to have a sacral decubitus ulcer with possible abscess formation to his right perineum. Blood cultures pending. Antibiotics as above. 11/02/2018-WBC count came down to normal 10,900. Patient is afebrile. But hypotensive. Plan is to continue IV fluids normal saline at 125 cc/h and blood pressure medications are on hold. Status post I&D was done yesterday. Hopefully surgery is continue to follow the patient on regular basis. 11/03/2018-WBC count is 9400 today normal. Plan is to continue IV Zosyn until culture reports are available. 11/04/2018-WBC count today is 7900 within normal range. Leukocytosis is resolved. 11/05/2018-WBC count is 8000 within normal limits. Patient is afebrile. Leukocytosis secondary to infection resolved. 11/07/2018-WBC count is 7300 leukocytosis resolved. 11/08/2018-patient came in with elevated WBC count leukocytosis is resolved today's WBC count is 8000. (3) Chronic kidney disease Qualifiers: Chronic kidney disease stage: stage 3 (moderate) Qualified Code(s): N18.3 - Chronic kidney disease, stage 3 (moderate) Is this a current diagnosis for this admission?: Yes Plan: Stable; baseline creatinine of 1.73. Avoid nephrotoxic medications as able. Monitor daily chemistry. 11/02/2018-patient's baseline creatinine is around 1.7 it was worsened to 2.04 today. Plan is to continue IV fluids at 125 cc/h and hold lisinopril, spironolactone and Coreg for today because the blood pressure is 94/44. plan Is to repeat the labs tomorrow. 11/03 2018-patient's baseline creatinine is 1.7 despite receiving IV fluids at 125 cc/h creatinine went up to 2.47. It may be due to zosyn. Plan is to discontinue Zosyn and increase the fluids to 200 cc/h and to start on IV Rocephin and IV clindamycin. 11/04/2018-patient creatinine today is 2.6 continue to rise. Yesterday IV fluids are discontinued because patient is getting short of breath and a scrotal edema was noticed. IV fluids are discontinued he was given a Lasix 20 mg IV 1 dose edema was resolved urinary output is very good today. Renal ultrasound was negative. Plan is to continue to closely monitor his renal function. 11/05/2018-patient's creatinine today is 2.1 improved from 2.6 yesterday. Patient is off the IV fluids. Plan is to continue to closely monitor his kidney function. he has baseline creatinine is around 1.7. JASWINDER may be secondary to AT N because of foot Zosyn. 11/06 2018-serum creatinine today is 1.9 improved from 2.1. He is not on IV fluids. JASWINDER is resolving. Baseline creatinine is around 1.7. 11/07/2018-serum creatinine today is 1.85 continue to improve. Baseline creatinine is around 1.7. Patient is not on IV fluids at this moment. 11/08/2018-patient serum creatinine today is 1.5. Significant improvement is not creatinine. JASWINDER on CKD due to sepsis resolving. His baseline creatinine is around 1.7. (4) Hypertension Qualifiers: Hypertension type: essential hypertension Qualified Code(s): I10 - Essential (primary) hypertension Is this a current diagnosis for this admission?: Yes Plan: Continue home medication regiment of Carvedilol, spironolactone, lisinopril. 11/02/2018-patient blood pressure today is 94/44 despite being on IV fluids 125 cc/h plan is to hold Coreg, spironolactone and lisinopril for today. 11/03/2018-latest blood pressure is 107/50 blood pressure medications are on h old. plan is to increase fluids to 200 cc/h today. To watch for the fluid overload. 11/04/2018-blood pressure today is 118/50 antihypertensives are still on hold. 11/05/2018-patient blood pressure today is 154/70 stable plan is to continue the present management patient is presently off the IV fluids. Plan is to restart his home medications. 11/06/2018-patient blood pressure today is 155/68. Stable. Plan is to continue to closely monitor his blood pressures. Presently on Coreg 6.25 mg p.o. every 12 hours. 11/07/2018-patient blood pressure today is 164/67. Slightly elevated. Presently on Coreg 6.5 mg every 12 hours and to restart spironolactone from today. 11/08/2018-patient blood pressure today is 154/65. Stable. Plan is to continue the present management today. (5) CAD (coronary artery disease) Qualifiers: Coronary Disease-Associated Artery/Lesion type: unspecified vessel or lesion type Associated angina: without angina Is this a current diagnosis for this admission?: Yes (6) CAP (community acquired pneumonia) Qualifiers: Laterality: right Lung location: unspecified part of lung Qualified Code(s): J18.9 - Pneumonia, unspecified organism Is this a current diagnosis for this admission?: Yes Plan: Ruled out; Afebrile, scant rhonchi on exam, though CXR clear and maintaining oxygen saturations on room air. Patient and report recent productive cough. Supplemental oxygen as needed. As needed nebulizer treatments. Encourage pulmonary toilet. 11/02/2018-chest x-ray was negative and pulse oxes within normal range at 98% on 2 L community-acquired pneumonia is ruled out. 11/03/2018-patient's pulse ox today is 95% on room air. Plan is to continue the present management. 11/04/2018-patient pulse ox is 94% on room air comfortably sleeping in the bed not will start working not in distress. 11/05/2018-patient pulse ox today is 94% on room air chest bilateral it was decreased no wheezing no crepitations present on examination. 11/06/20185034-zdhukemnc-pamkbsoe pneumonia most likely secondary to gram-positive organisms resolving. Pulse oxes 96% on room air. Comfortably in the bed communicating well. 11/08/2018-patient might have admitted with community-acquired pneumonia which was resolved pulse ox is 96% on room air today. - Time Time Spent with patient: 15-24 minutes Medications reviewed and adjusted accordingly: Yes Anticipated discharge: Home
[2018-11-09] MEDS: IPRATROPIUM/ALBUTEROL 0.5-2.5 MG/3 ML AMPUL NEB SCH ×3 (00:42→16:29)
[2018-11-09] MEDS: ACETAMINOPHEN 325 MG TABLET PO SCH ×3 (05:30→14:57)
[2018-11-09] MEDS: CLINDAMYCIN 600 MG/D5W RTU 600 MG/50 ML RTUPB IV SCH ×2 (06:10→13:16)
[2018-11-09] MEDS: PANTOPRAZOLE SODIUM 40 MG TABLET.DR PO SCH (06:11)
[2018-11-09] MEDS: HEPARIN SOD (PORCINE) 5,000 UNIT/ML 1 ML VIAL SUBCUT SCH ×2 (06:11→13:14)
[2018-11-09] MEDS: DOCUSATE SODIUM 100 MG CAPSULE PO SCH ×2 (09:11→17:08)
[2018-11-09] MEDS: RANOLAZINE 500 MG TAB.SR.12H PO SCH (09:17)
[2018-11-09] MEDS: CLOPIDOGREL BISULFATE 75 MG TABLET PO SCH (09:17)
[2018-11-09] MEDS: SPIRONOLACTONE 25 MG TABLET PO SCH (09:18)
[2018-11-09] MEDS: MAGNESIUM OXIDE 400 MG TABLET PO SCH ×2 (09:19→17:08)
[2018-11-09] MEDS: FINASTERIDE 5 MG TABLET PO SCH (09:19)
[2018-11-09] MEDS: ATORVASTATIN CALCIUM 20 MG TABLET PO SCH (09:19)
[2018-11-09] MEDS: ASPIRIN 81 MG TABLET, ENT COATED PO SCH (09:19)
[2018-11-09] MEDS: CEFTRIAXONE 2 GM/D5W RTU 2 GM/50 ML RTUPB IV SCH (09:19)
[2018-11-09] MEDS: CARVEDILOL 6.25 MG TABLET PO SCH (09:20)
[2018-11-09 09:22] LABS: APPEARANCE,URINE CLEAR; BILIRUBIN,URINE NEGATIVE (NEGATIVE); COLOR,URINE YELLOW; GLUCOSE, URINE NEGATIVE (NEGATIVE); KETONES,URINE NEGATIVE (NEGATIVE); LEUKOCYTE ESTERASE,URINE NEGATIVE (NEGATIVE); NITRITE,URINE NEGATIVE (NEGATIVE); PROTEIN,URINE NEGATIVE (NEGATIVE); UROBILINOGEN,URINE NEGATIVE mg/dL (<2.0)
--- NOTE | 2018-11-09 12:34 | PDOC TRANSFER SUMMARY ---
General - Admit/Disc Date/PCP Admission Date/Primary Care Provider: 11/01/18 10:40 Discharge Date: 11/09/18 - Discharge Diagnosis (1) Abscess of multiple sites of perineum Is this a current diagnosis for this admission?: Yes Summary: Had I&D of the left upper thigh and groin with placement of 2 Alden drains. He grew out Proteus and MRSA, clindamycin was selected and he has been responding well. He needs a few more days of clindamycin as well as a probiotic. The [place] drains are to stay in place. He has follow-up scheduled on November 22 with surgery. (2) CAD (coronary artery disease) Is this a current diagnosis for this admission?: Yes Summary: Controlled with his home medication (3) Hypertension Is this a current diagnosis for this admission?: Yes Summary: Well-controlled with his home medication - Additional Information Resuscitation Status: Full Code Discharge Diet: Cardiac Discharge Activity: Supervised Activity - other directions per surgery Prescriptions: Clindamycin HCl [Cleocin 150 mg Capsule] 450 mg PO Q8 #27 capsule L. Acidophilus/L. Rhamnosus [Probiotic 15 Billion Cell Cap] 1 each PO BID #14 capsule Home Medications: Atorvastatin Calcium [Lipitor 20 mg Tablet] 1 tab PO DAILY 02/04/17 Finasteride [Proscar 5 mg Tablet] 5 mg PO DAILY 10/09/17 Tamsulosin HCl [Flomax] 0.4 mg PO DAILY 10/09/17 Carvedilol [Coreg 6.25 mg Tablet] 6.25 mg PO Q12 #60 tablet 10/12/17 Ranolazine [Ranexa 500 mg Tab.sr] 500 mg PO Q12 #60 tab.sr.12h 10/12/17 Aspirin [Ecotrin 81 mg EC Tablet] 81 mg PO DAILY 10/31/18 Clopidogrel Bisulfate [Plavix 75 mg Tablet] 75 mg PO DAILY 10/31/18 Lansoprazole 15 mg PO DAILY 10/31/18 Lisinopril [Zestril] 2.5 mg PO DAILY 10/31/18 Spironolactone [Aldactone 25 mg Tablet] 12.5 mg PO DAILY 10/31/18 Acetaminophen [Tylenol 325 mg Tablet] 975 mg PO Q6A tablet 11/09/18 Clindamycin HCl [Cleocin 150 mg Capsule] 450 mg PO Q8 #27 capsule 11/09/18 L. Acidophilus/L. Rhamnosus [Probiotic 15 Billion Cell Cap] 1 each PO BID #14 capsule 11/09/18 History of Present Illness Admission Date/PCP: 11/01/18 10:40 History of Present Illness: LEANNE FAROOQ is a 88 year old male with a past medical history of recent NC (5 stents), HTN, HLD, COPD, remote CVA, Hypothyroidism, BPH, GERD, and dementia who presented to the ED via EMS for a fall and generalized weakness. Patient's reports that patient has had increased weakness for the previous several days; he is at his baseline mental status (orientated to person, place, situation, but easily confused and forgetful). Patient's only complaint is severe constipation. Evaluation in the emergency department revealed tachypnea, Leukocytosis (WBC 17.9 with 88% neutrophils), baseline anemia, baseline creatinine (1.73), normal urine, UDS, and chest x-ray. EKG demonstrates sinus rhythm with an incomplete RBBB. Troponin is negative. The patient is referred to the hospitalist service for admission and management of the above. Hospital Course Hospital Course: After evaluation he was found to have a perirectal abscess. Surgery was consulted. He wound up having 2 separate areas, one in the left upper thigh one in the left groin, underwent I&D with placement of Alden drains. Based on the microbiology, clindamycin was chosen. He has been on the clindamycin for about a week now and needs 3 more days. I have also recommended that he take a prob iotic for about a week. He initially wanted to go home but after some discussion is decided that he would go to a nursing home facility. A bed was obtained and he is being transferred today in good condition. His comorbid conditions were managed with his home medications and were not exacerbated during this hospitalization. He was eating and drinking a normal diet at time of discharge. Physical Exam Vital Signs: Temp Pulse Resp BP Pulse Ox 98.0 F 82 18 137/60 H 96 11/09/18 07:41 11/09/18 08:29 11/09/18 08:29 11/09/18 07:41 11/09/18 08:29 Pulse Oximeter Continuous Start: 11/01/18 19:06 Freq: RTQ4 Status: Complete Protocol: Document 11/03/18 08:02 [facility] (Rec: 11/03/18 08:02 [facility] [id number]) Pulse Oximetry Assessment Equipment Usage Equipment Discontinued Continuous SpO2 Machine # N [id number] Additional RT Notes Other dc per tile roofer & Output 11/08/18 11/09/18 11/10/18 06:59 06:59 06:59 Intake Total 720 1060 100 Output Total 1300 2400 Balance -580 -1340 100 Weight 80.9 kg 79.1 kg General appearance: PRESENT: no acute distress, cooperative, disheveled, hard of hearing Respiratory exam: PRESENT: clear to auscultation chace, symmetrical, unlabored. ABSENT: accessory muscle use, chest wall tenderness, crackles, prolonged expiratory phas, rhonchi, tachypnea, wheezes Cardiovascular exam: PRESENT: RRR, +S1, +S2 Pulses: PRESENT: normal carotid pulses Vascular exam: PRESENT: normal capillary refill GI/Abdominal exam: PRESENT: normal bowel sounds, soft. ABSENT: distended, guarding, rebound, tenderness Extremities exam: ABSENT: clubbing, pedal edema Musculoskeletal exam: PRESENT: normal inspection. ABSENT: deformity Neurological exam: PRESENT: alert, awake, oriented to person, oriented to place, oriented to situation Psychiatric exam: PRESENT: appropriate affect, normal mood Skin exam: PRESENT: dry, warm Results Laboratory Results: 11/08/18 05:17 11/08/18 05:17 11/09/18 06:35 Urine Color YELLOW Urine Appearance CLEAR Urine pH 5.0 Ur Specific [place] 1.010 Urine Protein NEGATIVE Urine Glucose (UA) NEGATIVE Urine Ketones NEGATIVE Urine Blood NEGATIVE Urine Nitrite NEGATIVE Ur Leukocyte Esterase NEGATIVE Urine WBC (Auto) 1 Urine RBC (Auto) 1 10/31/18 10:23 Troponin I 0.056 Impressions: Head CT 10/31/18 10:21 IMPRESSION: MILD CHRONIC CHANGES OF ATROPHY AND MICROVASCULAR ISCHEMIA. NO ACUTE PROCESS. EVIDENCE OF ACUTE STROKE: NO. Chest X-Ray 10/31/18 11:31 IMPRESSION: NO ACUTE FINDINGS. Pelvis CT 11/01/18 00:00 IMPRESSION: There are inflammatory changes in the medial left thigh and perineum. No abscess is seen. There is diverticulosis coli. Renal Ultrasound 11/03/18 00:00 IMPRESSION: Multiple bilateral renal cysts Age-appropriate cortical thinning and increased echogenicity both kidneys. No hydronephrosis Wallace catheter decompresses the bladder Transfer Plan - Time Spent with Patient Time spent with patient: Greater than 30 Minutes Qualifiers - * PATIENT BEING DISCHARGED WITH ANY OF THE FOLLOWING DIAGNOSIS: No Acute Heart Failure - Is this a Heart Failure Patient?: No Plan Time Spent: Greater than 30 Minutes
[2018-11-09 13:58] VITALS: BP 142/55
== END 2018-11-09 17:21 | DRG 581 ==
LOC: ER 09:42 → INTOOBSV 14:13 → EH 14:13 → 4N 15:10 → OBSVTOIN 11-01 10:40
PROVIDERS: ADMIT Internal Medicine; ATTEND Internal Medicine
PROC: 0H9AX0Z Drainage of Inguinal Skin with Drainage Device, External Approach (ICD-10-PCS; 2018-11-01)
PROC: 0DJD8ZZ Inspection of Lower Intestinal Tract, Via Natural or Artificial Opening Endoscopic (ICD-10-PCS; 2018-11-01)
PROC: 0H99X0Z Drainage of Perineum Skin with Drainage Device, External Approach (ICD-10-PCS; principal; 2018-11-01 17:00)
DX: L02.215 Cutaneous abscess of perineum (principal); L02.214 Cutaneous abscess of groin; B95.62 Methicillin resistant Staphylococcus aureus infection as the cause of diseases classified elsewhere; B96.4 Proteus (mirabilis) (morganii) as the cause of diseases classified elsewhere; L89.152 Pressure ulcer of sacral region, stage 2; D72.829 Elevated white blood cell count, unspecified; I12.9 Hypertensive chronic kidney disease with stage 1 through stage 4 chronic kidney disease, or unspecified chronic kidney disease; N18.3 Chronic kidney disease, stage 3 (moderate); I25.10 Atherosclerotic heart disease of native coronary artery without angina pectoris; E87.5 Hyperkalemia; Z86.73 Personal history of transient ischemic attack (TIA), and cerebral infarction without residual deficits; K21.9 Gastro-esophageal reflux disease without esophagitis; K59.00 Constipation, unspecified; J44.9 Chronic obstructive pulmonary disease, unspecified; E03.9 Hypothyroidism, unspecified; N40.0 Benign prostatic hyperplasia without lower urinary tract symptoms; F03.90 Unspecified dementia, unspecified severity, without behavioral disturbance, psychotic disturbance, mood disturbance, and anxiety; D64.9 Anemia, unspecified; I25.2 Old myocardial infarction; Z91.81 History of falling; Z79.82 Long term (current) use of aspirin; Z79.899 Other long term (current) drug therapy
CPT/HCPCS: 00902; 36415; 70450; 71045; 72193; 76770; 80048; 80053; 80307; 81001; 82272; 82962; 83735; 84443; 84484; 85025; 85027; 87040; 87070; 87075; 87077; 87186; 87205; 93005; 93010; 94762; 94799; 96361; 96365; 99285; A6266; G0378; J0131; J0456; J0696; J1644; J1940; J2250; J2543; J2704; J3010; J3490; J7030; J7040; J7060; J7620

== ENCOUNTER 2019-10-27 19:55 | Emergency (ER) | payer MEDICARE, OTHER ==
[2019-10-27 20:20] VITALS: BP 126/56
--- NOTE | 2019-10-27 20:36 | ER Document Report ---
ED Medical Screen (RME) - General Chief Complaint: Eye Problem Stated Complaint: LEFT EYE PROBLEM Time Seen by Provider: 10/27/19 20:32 Primary Care Provider: TRENT FLORENTINO PA-C [Primary Care Provider] - Follow up as needed Mode of Arrival: Wheelchair Information source: Patient Notes: 89-year-old male presented to ED for eating from the left eye. There is [place] blood in front of the conjunctival. He denies any injuries he denies any pain. He states he just rested about 8 PM tonight. He is on Plavix. He has a history of reflux hypothyroid states he does not know why he is taking the blood thinner. He states he does have Parkinson's. He denies use of alcohol tobacco or drugs. I have greeted and performed a rapid initial assessment of this patient. A comprehensive ED assessment and evaluation of the patient, analysis of test results and completion of medical decision making process will be conducted by an additional ED providers. TRAVEL OUTSIDE OF THE [place] IN LAST 30 DAYS: No - Related Data Allergies/Adverse Reactions: No Known Allergies Allergy (Verified 08/08/18 11:50) Past Medical History - Past Medical History Cardiac Medical History: Reports: Hx Coronary Artery Disease, Hx Heart Attack, Hx Hypercholesterolemia, Hx Hypertension Pulmonary Medical History: Reports: Hx COPD Denies: Hx Asthma Neurological Medical History: Denies: Hx Cerebrovascular Accident, Hx Seizures Endocrine Medical History: Reports: Hx Hypothyroidism. Denies: Hx Diabetes Mellitus Type 2 Renal/ Medical History: Denies: Hx Peritoneal Dialysis GI Medical History: Reports: Hx Gastroesophageal Reflux Disease. Denies: Hx Hepatitis, Hx Hiatal Hernia, Hx Ulcer Musculoskeltal Medical History: Reports Hx Arthritis Psychiatric Medical History: Reports: Hx Dementia Denies: Hx Depression Infectious Medical History: Denies: Hx Hepatitis Past Surgical History: Reports: Hx Cardiac Catheterization, Hx Cardiac Surgery - stent x 5, Hx Coronary Stent, Hx Tonsillectomy. Denies: Hx Open Heart Surgery, Hx Pacemaker Physical Exam - Vital signs Vitals: Temp Pulse Resp BP Pulse Ox 97.5 F 69 22 H 126/56 H 97 10/27/19 20:18 10/27/19 20:18 10/27/19 20:18 10/27/19 20:18 10/27/19 20:18 Course - Vital Signs Vital signs: Temp Pulse Resp BP Pulse Ox 97.5 F 69 22 H 126/56 H 97 10/27/19 20:18 10/27/19 20:18 10/27/19 20:18 10/27/19 20:18 10/27/19 20:18 Doctor's Discharge - Discharge Referrals: TRENT FLORENTINO PA-C [Primary Care Provider] - Follow up as needed
--- NOTE | 2019-10-27 21:33 | RADIOLOGY REPORT (SQ) ---
EXAM DESCRIPTION: CT ORBITS WITHOUT IV CONTRAST COMPLETED DATE/TME: 10/27/2019 20:40 CLINICAL HISTORY: 89 years, Male, Bleeding from eye no injury COMPARISON: Prior CT head dated 10/31/2018 TECHNIQUE: Noncontrast CT of the orbits was acquired. No intravenous contrast was administered. Images stored on PACS. All CT scanners at this facility use dose modulation, iterative reconstruction, and/or weight based dosing when appropriate to reduce radiation dose to as low as reasonably achievable (ALARA). [facility]: Dose Right [facility]: CareDose [facility]: Dose Right [facility]: Teradose 4D [facility]: PopSeal LIMITATIONS: None. FINDINGS: Visualized portions of the mandible appear intact. Medial and lateral pterygoid plates are intact. The zygomatic arches are intact. Nasal septum is minimally deviated towards the left. Nasal bone is intact. Nasal spine is intact. Paranasal sinuses and mastoid air cells are clear. Calcifications are evident about the parasellar carotid arteries. Limited assessment of the brain parenchyma reveals moderate generalized atrophy. Globes and orbits show no suspicious abnormality. No significant preseptal or postseptal inflammation is identified. Visualized parotid glands appear normal. No suspicious deep cervical lymphadenopathy is appreciated. IMPRESSION: No acute findings. TECHNICAL DOCUMENTATION: Quality ID # [id number]: Final reports with documentation of one or more dose reduction techniques (e.g., Automated exposure control, adjustment of the mA and/or kV according to patient size, use of iterative reconstruction technique) copyright 2010 [employer]- All Rights Reserved
--- NOTE | 2019-10-27 22:40 | ER Document Report ---
ED Eye Complaint - General Chief Complaint: Eye Problem Stated Complaint: LEFT EYE PROBLEM Time Seen by Provider: 10/27/19 20:32 Primary Care Provider: MARLY TODD DO [ACTIVE STAFF] - Follow up as needed TRENT FLORENTINO PA-C [Primary Care Provider] - Follow up as needed Mode of Arrival: Wheelchair TRAVEL OUTSIDE OF THE [place] IN LAST 30 DAYS: No - HPI Notes: 89-year-old male presents with redness to his left eye. Patient's provides most of the information. She states that she noticed that his eye appeared to be bleeding around 8 PM tonight. She denies any known trauma. States that he had not recently coughed or sneezed. Patient denies pain to the area. He denies visual changes. He currently takes Plavix. - Related Data Allergies/Adverse Reactions: No Known Allergies Allergy (Verified 10/27/19 20:34) Home Medications: carvedilol, plaxis, atorvastatin, levothyroxine, lansoprazole, colace, finateride, carbidopa-levodopa... has bag of meds Past Medical History - General Information source: Patient - Social History Smoking Status: Never Smoker Chew tobacco use (# tins/day): No Frequency of alcohol use: None Drug Abuse: None Family History: Reviewed & Not Pertinent, Hypertension Patient has homicidal ideation: No - Past Medical History Cardiac Medical History: Reports: Hx Coronary Artery Disease, Hx Heart Attack, Hx Hypercholesterolemia, Hx Hypertension Pulmonary Medical History: Reports: Hx COPD Denies: Hx Asthma Neurological Medical History: Denies: Hx Cerebrovascular Accident, Hx Seizures Endocrine Medical History: Reports: Hx Hypothyroidism. Denies: Hx Diabetes Mellitus Type 2 Renal/ Medical History: Denies: Hx Peritoneal Dialysis GI Medical History: Reports: Hx Gastroesophageal Reflux Disease. Denies: Hx Hepatitis, Hx Hiatal Hernia, Hx Ulcer Musculoskeletal Medical History: Reports Hx Arthritis Psychiatric Medical History: Reports: Hx Dementia Denies: Hx Depression Infectious Medical History: Denies: Hx Hepatitis Past Surgical History: Reports: Hx Cardiac Catheterization, Hx Cardiac Surgery - stent x 5, Hx Coronary Stent, Hx Tonsillectomy. Denies: Hx Open Heart Surgery, Hx Pacemaker Review of Systems - Review of Systems Constitutional: No symptoms reported EENT: denies: Eye pain, Blurred vision Cardiovascular: No symptoms reported Respiratory: No symptoms reported Gastrointestinal: No symptoms reported Genitourinary: No symptoms reported Male Genitourinary: No symptoms reported Musculoskeletal: No symptoms reported Skin: No symptoms reported Hematologic/Lymphatic: No symptoms reported Neurological/Psychological: No symptoms reported Physical Exam - Vital signs Vitals: Temp Pulse Resp BP Pulse Ox 97.5 F 69 22 H 126/56 H 97 10/27/19 20:18 10/27/19 20:18 10/27/19 20:18 10/27/19 20:18 10/27/19 20:18 Interpretation: Normal - General General appearance: Appears well In distress: None - HEENT Head: Normocephalic, Atraumatic Eyes: Other - There is marked subconjunctival hemorrhage to the left conjunctiva. There is some sparing of the superior aspect. There is no blood coming from the eye. Pupil is reactive and extraocular motions are intact. The eye is nontender to palpation. - Respiratory Breath sounds: Normal - Cardiovascular Rhythm: Regular - Abdominal Tenderness: Nontender - Neurological Neuro grossly intact: Yes Cognition: Normal - Psychological Associated symptoms: Normal affect - Skin Skin Temperature: Warm Course - Re-evaluation Re-evalutation: 89-year-old male with likely spontaneous subconjunctival hemorrhage to his left eye, suspect this is due to Plavix use. There is no report of trauma. He has intact vision to all 4 quadrants, EOMI, eye is nontender to palpation. Through the triage process he received a CT of his orbits which was negative for any ocular trauma. Discussed with patient and his expectant management and need to see ophthalmology. They are eager to get home. Will perform visual acuity. 10/27/19 23:30 Nursing performed visual acuity. Vision better in affected eye. Patient and were instructed to please call their ophthalmic surgeon in the morning to schedule appointment. Also gave follow-up for ophthalmology here. Discussed discontinuing Plavix and touching base with primary care doctor to let them know about ED visit and plans to hold Plavix, will need plan to reinitiate. verbalized understanding. Patient stable at time of discharge. - Vital Signs Vital signs: Temp Pulse Resp BP Pulse Ox 97.5 F 69 22 H 126/56 H 97 10/27/19 20:18 10/27/19 20:18 10/27/19 20:18 10/27/19 20:18 10/27/19 20:18 - Diagnostic Test Radiology reviewed: Image reviewed, Reports reviewed Discharge - Discharge Clinical Impression: Subconjunctival hemorrhage of left eye Condition: Stable Disposition: HOME, SELF-CARE Additional Instructions: Please call your eye doctor first thing in the morning to be seen. If you are unable to be seen, you may see ophthalmology here in [place], contact information has been provided. Please hold use of Plavix until you can be seen. You will need to discuss holding Plavix with your primary care doctor, as recommendations will be given about when to restart. Please return to the emergency department for any worsening or concerning symptoms. Referrals: TRENT FLORENTINO PA-C [Primary Care Provider] - Follow up as needed MARLY TODD DO [ACTIVE STAFF] - Follow up as needed
== END 2019-10-27 23:41 | disposition home or self-care (01) ==
LOC: ER 19:55
DX: H11.32 Conjunctival hemorrhage, left eye (principal); I25.10 Atherosclerotic heart disease of native coronary artery without angina pectoris; I10 Essential (primary) hypertension; I25.2 Old myocardial infarction; J44.9 Chronic obstructive pulmonary disease, unspecified; K21.9 Gastro-esophageal reflux disease without esophagitis; E03.9 Hypothyroidism, unspecified; E78.00 Pure hypercholesterolemia, unspecified; Z79.02 Long term (current) use of antithrombotics/antiplatelets; Z79.899 Other long term (current) drug therapy; Z95.5 Presence of coronary angioplasty implant and graft
CPT/HCPCS: 70480; 99284